=== PATIENT | female | born 1940 | race Caucasian/White ===

== ENCOUNTER → 2019-12-08 | Outpatient (CLI) | payer MEDICARE ==
[~2019-12-08] MED LIST: ASPI81TA26 PO; CENT1TAB PO; HEPARIN 1,000 UNITS/ML 10ML VIAL (FOR RADIOLOGY& DIALYSIS ONLY)(J1644-10) As Ordered ONE; HYDR12CA PO; ISOVUE-300 61% 50ML VIAL (Q9967) As Ordered ONE; LIDOCAINE 1% MDV 20ML VIAL As Ordered ONE; LIDOCAINE W/EPINEPHRINE 1% 20ML VIAL As Ordered ONE; LOSA100T50 PO; MIDAZOLAM INJ 2 MG/2 ML VIAL (J2250) As Ordered ONE; OCUVTAB4 PO; OYST1TAB PO; PRAV20TA2 PO; ceFAZolin 1GM VIAL (J0690 PER 500MG) As Ordered ONE; fentaNYL 100 MCG/2 ML INJECTION (J3010) As Ordered ONE
[2019-12-08 07:22] LABS: HEMATOCRIT 40.5 % (36.0-47.0); HEMOGLOBIN 13.8 g/dl (12.0-15.5); MEAN CORPUSCULAR HEMOGLOBIN 32.6 pg (27.0-33.0); MEAN CORPUSCULAR HGB CONC 34.1 g/dl (32.0-36.5); MEAN CORPUSCULAR VOLUME 95.7 fl (80.0-96.0); PLATELET COUNT, AUTOMATED 263 10^3/uL (150-450); RED BLOOD COUNT 4.23 10^6/uL (4.00-5.40); WHITE BLOOD COUNT 5.9 10^3/uL (4.0-10.0)
[2019-12-08 07:39] LABS: BLOOD UREA NITROGEN 18 MG/DL (7-18); CALCIUM LEVEL 9.3 MG/DL (8.8-10.2); CARBON DIOXIDE LEVEL 32 MEQ/L (21-32); CHLORIDE LEVEL 99 MEQ/L (98-107); CREATININE FOR GFR 0.82 MG/DL (0.55-1.30); GLOMERULAR FILTRATION RATE > 60.0 (>32); GLUCOSE, FASTING 87 MG/DL (70-100); POTASSIUM SERUM 3.8 MEQ/L (3.5-5.1); SODIUM LEVEL 136 MEQ/L (136-145)
--- NOTE | 2019-12-08 11:50 | ROOPDOC ---
[facility] Report Of Operation Report of Operation DATE OF PROCEDURE: 12/08/19 PREPROCEDURE DIAGNOSES: Atherosclerosis of the [place] arteries with rest pain, worsening pain left lower extremity POSTPROCEDURE DIAGNOSES: Same PROCEDURE: 1. US guided access right common femoral artery 2. Aortoiliofemoral arteriogram 3. US guided access left common femoral artery 4. Predilation bilateral common iliac arteries with 6 x 100 mustang balloons 5. Attempt to place bilateral common iliac artery 10 x 57 express balloon expandable stents- aborted 6. Cutdown left common femoral artery and removal dislodged 10 x 57 stent 7. Predilation bilateral common iliac arteries with 10 x 80 Tom Bean balloons 8. Surgical removal left 10 x 80 ruptured mustang balloon and partial arterial closure, then deployment 8Fr Angioseal 9. Stent right common iliac artery with 8 x 39 VBX stent, common into external iliac artery with 10 x 57 Express stent, and postdilation VBX with 10 x 57 balloon. 10. Extension right external iliac stent with 8 x 39 VBX stent 11. Completion arteriograms 12. Mynx closure right common iliac artery SURGEON: Gavin Carvajal MD ANESTHESIA: Local anesthesia 20 mL lidocaine. Moderate intravenous conscious sedation was supervised by Dr Carvajal. The patient was independently monitored by a registered nurse assigned to the department of Radiology using automated blood pressure, EKG, and pulse oximetry. The detailed sedation record is permanently stored in the hospital information system. The following is the brief sedation record: start time: 08:04, stop time: 10:47, versed 4mg IV, fentanyl 200 mcg IV, Ancef 2g IV, heparin 5000 units IV. CONTRAST: 33 mL isovue 300 INDICATION FOR PROCEDURE: Very pleasant 79yo patient with severe vascular disease and worsening rest pain, who has complained of severe left pain for over a month that has woken her from sleep every night. She is tearful talking about the pain. Risks benefits and alternatives were explained for an arteriogram and potential intervention, and she was agreeable to proceed. Informed consent was obtained. INTERPRETATION: 1. Common iliac arteries are heavily calcified and tortuous, with 80-90% stenosis in the right common iliac artery and 90-95% stenosis in the left common iliac artery. There is also diffuse milder stenosis, focally 50-60% in a few areas, through the external iliac arteries bilaterally. The hypogastric arteries are patent. 2. After predilation of the iliac arteries with 6 x 100 balloons, flow intact but stenoses still noted. 3. Unable to successfully stent left common iliac artery due to stent dislodgment. 4. Attempted kissing balloons with 10 x 80 Tom Bean balloons in common iliac arteries, with rupture of the balloon in the left common iliac artery. Following this, there was some improvement in left iliac flow, but still considerable ectasia noted in the plaque and stenosis. 5. Successful stenting of the right common iliac artery and external iliac artery with widely patent inflow through the right iliac system following stent placement. No extravasation or embolization noted. Hypogastric is also still widely patent after stenting. REPORT OF OPERATION: The patient was brought to the angiographic suite in stable condition and placed supine on the fluoroscopic table. Her bilateral groins were prepped and draped in a sterile fashion. A timeout was performed. Sedation was administered without complication. Local anesthesia was administered to the skin and subcutaneous tissue over the left common femoral artery. A microneedle was used to access the artery under ultrasound guidance. A wire was passed through this access and the needle was removed. A 4 British sheath was placed and flushed with saline. A Glidewire and Omni flushed catheter were advanced into the distal aorta. This was difficult due to tortuosity in the common iliac artery on the right, stenosis, irregular plaque, and ectasia. Eventually, we were able to navigate into the distal aorta and and aortoiliofemoral arteriogram was performed. Following this, we spent a bit of time trying to navigate Glidewire and Omni flushed catheter into the left iliac system. Due to the heavy plaque, tortuosity, and stenosis on the left, it was very difficult to navigate the wire down into the left common femoral artery and difficult to track the catheter over the wire. Eventually, we felt this was likely to be unsuccessful and instead we decided to gain access on the left. Local anesthesia was administered to the skin and the cutaneous tissue over the left common femoral artery and a microneedle was used to access the artery and ultrasound guidance. A wire was passed through this access and the needle was removed. A 4 British sheath was placed and flushed with saline. Through this access a Glidewire and Omni flushed catheter were used to cross into the distal aorta. Once the wire was within the aorta, we exchanged the sheath for 7 British sheath and flushed the sheath was saline. 5000 units of heparin was given and allowed to circulate. We advanced 6 x 100 mustang balloons across each common iliac artery with the balloons kissing in the aorta. These were inflated for three-minute inflations to predilate the vessel in order to make it easier to pass balloon expandable stents through the common iliac artery. We then tried to advance 10 x 57 Express stent's into the common iliac artery origins. Unfortunately, we were able to advance on the right, but on the left the stent partially dislodged from the balloon despite predilation prior to passing the stent. We spent a bit of time trying to care fully removed the balloon and stent in 1 unit, but with retraction of the balloon into the sheath, the stent dislodged and only part of the stent remained in the sheath. We then attempted to remove both the sheath and the stent through our access, but the stent became lodged partially in the artery partially in the subcutaneous tissue. Local anesthesia was administered to the skin and subcutaneous tissue. Ancef 2 g IV was given. Skin knife was used to make a transverse incision approximately 3 cm. This was carried down to the subcutaneous tissue with a Metzenbaum scissors. Once we were able to visualize the stent, we carefully grasped the stent with a clamp and removed it from the artery. Wire access was maintained and pressure was held for hemostasis during this process. We then advanced a 7 British sheath over the wire and flushed the sheath with saline. Hemostasis was noted. Sheath was secured at the skin with the suture. Next, we advanced a 10 x 80 Tom Bean balloons in the common iliac arteries to try to predilate again prior to trying to stent again. We were able to inflate the balloons, but then the balloon on the left ruptured due to sharp calcified plaque in the left common iliac artery. Unfortunately, with the large size of this balloon, we could not retract the ruptured balloon back into the sheath. It created a large ball of balloon plastic that could not be brought through the sheath. I did not want to shear the balloon off of the delivery system, so again pressure was held and the sheath was removed and then we retracted the balloon to the origin of the artery. Pressure was held and he carefully dissected around the arteriotomy to remove the balloon safely in one piece. No portion was left behind. We then attempted to place a few strictures at the arteriotomy at the vessel was fragile and we did not have good proximal and distal control except for manual compression. Therefore I elected to try to place an 8 British sheath and see if we could deploy and Angio-Seal to help us with hemostasis. At this point, I felt it was unsafe to continue trying to work on the left common iliac artery and did not feel we had adequate hemostasis to do a runoff of the left lower extremity from the left iliac sheath, which was my initial plan once we were done addressing the inflow with iliac stenting. Therefore we do not know the extent of distal disease in the left lower extremity. The 8 British sheath was placed and an Angio-Seal was deployed with decent hemostasis. Direct pressure was held within the cutdown over the artery for 20 minutes. Following this, there was much improved hemostasis. With hemostasis gained on the left, we continue to hold gentle pressure over the Angio-Seal. Simultaneously, we advanced an 8 x 39 VBX stent into the right common iliac artery and deployed this. We then deployed a 10 x 57 Express stent in the right common iliac artery with a 1 cm overlap of the more proximal stent, and extending into the external iliac artery. After deployment, we postdilated the 8 x 39 stent with the 10 x 57 express balloon to expand to a 10 mm diameter. We then deployed another 8 x 39 VBX stent into the right external iliac artery with a 1 cm overlap of the more proximal Express stent. Following this, completion arteriogram showed widely patent inflow through the right iliac system and there was an excellent pulse. We deployed Mynx closure device on the right with good hemostasis. Pressure was held for 10 minutes and sterile dressings were applied. On the left, the wound was copiously irrigated with saline. Additional local anesthesia was administered. We then closed the small incision in 3 layers with running 4-0 Vicryl suture. We close the skin with a running subcuticular Monocryl suture. Mastisol and Steri-Strips were placed the length of the wound and sterile dressings were applied. The patient was then taken to recovery in stable condition. Despite the various challenges we had to overcome to safely finish this case, the patient tolerated the procedure and the sedation very well. Also, in spite of the fact that we were not able to successfully revascularize her left iliac inflow or evaluate/treat her left lower extremity outflow, the patient did have improved perfusion to her left foot, likely from the angioplasty we did perform in the iliac artery prior to rupture of the balloon. We are very pleased to see that her foot is warm and pink, but still with monophasic signals. Per the patient, the foot feels better, but I still think she will need additional intervention in the future for left lower extremity revascularization. ESTIMATED BLOOD LOSS: Approximately 250 mL. COMPLICATIONS: Dislodgement of left iliac stent required cutdown and manual r emoval of stent, and rupture of left iliac 10 x 80 mustang balloon also required manual removal of balloon from cutdown and arterial repair. Both interventions were successful to manage challenging product failure due to dense, calcified, tortuous left common iliac artery plaque. PLAN: Okay to continue home diet and medications. I did not prescribe the patient Plavix today for her right iliac stents, but she will likely need this soon. I feel she is too high risk for a bleed at home today to start Plavix. The stents are large, and less likely to thrombose, but I think 60 days of Plavix is warranted. I would like her arteriotomy to heal for a few days before starting Plavix. Her left groin incision Steri-Strips should stay intact for 7-10 days. The Tegaderm can be removed tomorrow, or left in place for showers. No strenuous exercise or heavy lifting for 72 hours. Okay for ambulation as tolerated. The patient was extensively counseled about the importance of smoking cessation. The perfusion in her left lower extremity is tenuous, and smoking will definitely affect her perfusion. I think it is important for her to realize that she is at significant risk for limb loss, left lower extremity greater than right, if she continues to smoke. She expressed understanding and said she will try to cut back and eventually quit. Eventually, I think the patient may need a right to left femorofemoral bypass. For now, the angioplasty we did in the left iliac appears to be giving her improved perfusion to the left lower extremity. Best case scenario, the patient would have total healing of both groins prior to a femorofemoral bypass, which would take 30-60 days depending on her healing. If we can hold off until then that would be ideal. If the perfusion she has now through the left iliac is suitable, no further intervention would be needed. Prior to performing the femorofemoral bypass, we would also like to obtain a CTA of the abdomen and pelvis with lower extremity runoff to evaluate distal perfusion. I do not think the patient is a good candidate to bring back for another percutaneous left lower extremity arteriogram after the challenges we've faced today. I would like to avoid left lower extremity endovascular interventions if possible, and avoid access in the left common femoral artery if possible. She does not have an option for and up and over from the right femoral due to remaining heavy plaque in the left common iliac artery. Therefore, I think a CTA as best. I have discussed the patient's case with her daughter and she is agreeable to the plan. We will see her back in clinic to check her groin access sites and see how she is doing in a week. He appreciate the opportunity to participate in the care of this patient. GAVIN CARVAJAL MD Dec 08, 2019 11:50
[2019-12-08 15:45] VITALS: BP 123/59
== END ==
LOC: M IRPRO 06:39
PROVIDERS: ATTEND Surgery Vascular Surgery
DX: I70.222 Atherosclerosis of native arteries of extremities with rest pain, left leg (principal); I10 Essential (primary) hypertension
CPT/HCPCS: 10121; 37221; 75716; 80048; 85027; 99152; 99153; C1725; C1760; C1769; C1874; C1876; C1887; C1894; J0690; J1644; J2250; J3010; Q9967

== ENCOUNTER → 2020-01-11 | Outpatient (CLI) | payer MEDICARE ==
[~2020-01-11] MED LIST changes: -HEPARIN 1,000 UNITS/ML 10ML VIAL (FOR RADIOLOGY& DIALYSIS ONLY)(J1644-10) As Ordered ONE; -ISOVUE-300 61% 50ML VIAL (Q9967) As Ordered ONE; +ISOVUE-370 76% 100ML VIAL As Ordered ONE; -LIDOCAINE 1% MDV 20ML VIAL As Ordered ONE; -LIDOCAINE W/EPINEPHRINE 1% 20ML VIAL As Ordered ONE; -MIDAZOLAM INJ 2 MG/2 ML VIAL (J2250) As Ordered ONE; -ceFAZolin 1GM VIAL (J0690 PER 500MG) As Ordered ONE; -fentaNYL 100 MCG/2 ML INJECTION (J3010) As Ordered ONE
--- NOTE | 2020-01-11 11:22 | REP ---
REASON FOR EXAM: History of carotid artery disease. There are no priors for comparison. There is patchy and linear echogenic material seen throughout the carotid artery bilaterally. Some of this casts an acoustic shadow consistent with calcific deposition. RIGHT LEFT CCA systolic 95.1 cm/s 71.2 cm/s CCA diastolic 10.8 cm/s 14.7 cm/s ICA systolic 121.7 cm/s 105.3 cm/s ICA diastolic 31.8 cm/s 31.9 cm/s ICA/CCA ratio 1.28 1.48 There is antegrade flow seen in the right vertebral artery. There is retrograde flow seen in the left vertebral artery. IMPRESSION: 1. Both calcified and noncalcified plaque formation causes less than 50% stenosis of the internal carotid artery bilaterally according to the NASCET consensus criteria. 2. 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 Electronically Signed by Olman Murray DO 01/11/2020 11:25 A
--- NOTE | 2020-01-11 12:53 | REP ---
CT ANGIOGRAM ABDOMINAL AORTA AND BILATERAL LOWER EXTREMITIES: CT angiogram of the abdominal aorta and bilateral lower extremities performed following the intravenous administration of 100 mL of Isovue 370. Sagittal, coronal and 3D MIP reconstruction images are performed. The visualized lung bases demonstrate no infiltrate. The liver, spleen, adrenals, and pancreas are unremarkable. There are bilateral renal cysts noted. No adenopathy is seen in the abdomen or pelvis. There is a mildly enlarged left inguinal lymph node which measures 1.3 cm in short axis. There is no free air or free fluid in the abdomen pelvis. There are degenerative changes of the spine. No pelvic mass is seen. Lower thoracic aorta demonstrates mild atherosclerotic calcification with mild ectasia measuring 3.2 cm in AP dimension. Distal abdominal aorta below the level of the renal arteries is upper limits of normal in caliber at 3.0 cm. There is diffuse moderate calcified plaque throughout the abdominal aorta. There is focal moderate degree of calcified plaque on the left at the level of the left main renal artery with noncalcified plaque in the right side of the abdominal aorta. There is moderate stenosis of the abdominal aorta focally at this level. There is mild narrowing at the origin of the celiac artery and superior mesenteric artery. There is a small patent inferior mesenteric artery identified. The main right renal artery demonstrates moderate calcific plaque with luminal narrowing in the range of about 30-40%. The left main renal artery demonstrates moderate calcific plaque with luminal narrowing 50-60%. There is a patent stent in the right internal and external iliac arteries. There is moderate narrowing of the right internal iliac artery. The distal aspect of the right external iliac artery demonstrates termination of the stent with moderate calcific plaque causing moderate degree of stenosis. The right common femoral artery demonstrates focal calcified plaque with high grade stenosis. Right superficial femoral artery demonstrates diffuse high-grade stenosis with a thread-like appearance. The stenosis decreases somewhat in the region of the adductor canal. This portion of the superficial femoral artery demonstrates moderate stenosis diffusely. The right popliteal artery demonstrates moderate calcific plaque with segmental high grade stenosis just above the knee joint. There is moderate diffuse stenosis of the distal aspect of the popliteal artery. Very thin trifurcation vessels are identified. The anterior tibial artery is quite small. It appears to terminate just above the ankle. Very thin posterior tibial artery terminates in the proximal third of the calf. The peroneal artery demonstrates moderate diffuse narrowing and does traverse into the right foot. On the left, the common iliac artery demonstrates moderate diffuse plaquing and narrowing. The distal end of the left common iliac artery is slightly ectatic. There is high-grade stenosis of the left internal iliac artery. At the origin of the left external iliac artery, there is moderate diffuse calcific plaque and narrowing. Left common femoral artery demonstrates moderate calcific plaque and moderate to high-grade stenosis. Origin of the left superficial femoral artery demonstrates high-grade stenosis. Caliber increases somewhat in the mid third of the left superficial femoral artery with moderate diffuse narrowing, although there is moderately severe focal stenosis in the mid third of the left SFA. There is moderate plaquing of the left popliteal artery with segmental high grade stenosis just above the level of the knee joint. Moderate narrowing is noted of the left anterior tibial artery which becomes occluded in the proximal to mid third of the calf. The left posterior tibial artery is occluded proximally. The left peroneal artery demonstrates moderate plaque at its origin. There is moderate diffuse narrowing. It does traverse into the foot. IMPRESSION: Mildly enlarged left inguinal lymph node. Moderate calcified and noncalcified plaque of the abdominal aorta at the level of the main left renal artery and just inferior to that, causes moderate narrowing of the aortic lumen at that level. There is about 30-40% narrowing at the origin of the main right renal artery and about 50-60% at the origin of the main left renal artery. Patent stent of right common iliac and external iliac arteries. Moderate stenosis of the distal right external iliac artery. High grade stenosis right common femoral artery. Diffuse high grade stenosis of the right superficial femoral artery. There is also high grade stenosis of the right popliteal artery just above the level of the knee joint. There is single vessel runoff in the right foot. On the left, there is moderate to moderately severe stenosis of the common femoral artery. There is high-grade stenosis of the proximal left superficial femoral artery and of the mid left SFA. There is high grade stenosis of the left popliteal artery. There is single vessel runoff in the left foot. Electronically Signed by Keny Schuster MD 01/11/2020 01:04 P
== END ==
LOC: M RAD 08:55
PROVIDERS: ATTEND Physician Assistant
DX: I70.213 Atherosclerosis of native arteries of extremities with intermittent claudication, bilateral legs (principal); I65.23 Occlusion and stenosis of bilateral carotid arteries
CPT/HCPCS: 75635; 93880; Q9967

== ENCOUNTER → 2020-02-16 | Outpatient (CLI) | payer MEDICARE ==
[~2020-02-16] MED LIST changes: +ALDA25TA2 PO; -ISOVUE-370 76% 100ML VIAL As Ordered ONE; +OXYC1TAB23 PO; +PLAV1TAB2 PO; +VITAD1000T PO
== END ==
LOC: M LABSMTC 09:23
PROVIDERS: ATTEND Anesthesiology
DX: Z01.818 Encounter for other preprocedural examination (principal); Z11.59 Encounter for screening for other viral diseases

== ENCOUNTER 2020-02-19 05:59 | Inpatient (IN) | payer MEDICARE ==
--- NOTE | 2020-02-09 15:36 | HPEPDOC ---
[facility] Medical History & Physical Date of Admission Feb 19, 2020 Date of Service: Feb 19, 2020 History and Physical Vascular surgery . Dr. Carvajal HPI: The patient is a 79-year-old patient with severe profound bilateral lower extremity atherosclerosis of the [place] vessels with left lower extremity rest pain and long-standing history of tobacco abuse, with plan for bilateral femoral endarterectomy and right to left femoral-femoral bypass as per Dr. Carvajal. Please refer to detailed office note from 01/11/[address] Carvajal, a copy is placed with the chart. PMHx: Hypertension Dyslipidemia CAD PAD PSHX: Cataract surgery Angiogram 12/08/19, left lower extremity SOCHX: Current smoker, 1 pack per day for 67 years. FAMHX: Mother HTN, CVA. Father diabetes. ROS: As noted in HPI, otherwise 11pt ROS of systems reviewed and unremarkable. PE: Const: Appears healthy and well developed. No signs of apparent distress present. Head/Face: Normal on inspection. ENMT: Tympanic membranes: intact. External nose WNL. Neck: Supple, Resp: No wheezing. Clear to auscultation bilaterally. CV: Rate is regular. Rhythm is regular. Monophasic DP/PT bilaterally. Abdomen: Soft, NT, ND, no guarding, rigidity, rebound. No organomegaly or palpable mass/aneurysm. Lymph: No palpable or visible regional lymphadenopathy. Musculo:Gait steady Skin:No rashes or lesions Neuro:Alert and oriented x3, moves all extremities equally, no focal neurologic deficits noted. Psych: Pleasant and cooperative A&P: 1. Atherosclerosis of [place] vessels of bilateral lower extremities with plan for bilateral femoral endarterectomy and right to left femoral-femoral bypass as per Dr. Carvajal 02/19/20. Informed consent has been obtained and is placed in the chart. Transfusion consent has been obtained and displaced with the chart. Medical clearance is requested and is placed in the chart. Cardiac clearance is requested and displaced with the chart. Continue aspirin. Continue statin. The patient was requested to hold Plavix 3 days prior to the procedure. Nothing by mouth. CBC, BMP, INR, PTT, type and screen on admission. Ancef 2 g preoperatively. 2. Tobacco use. It has been extensively discussed with the patient that smoking cessation is imperative. Potential health hazards have been extensively discussed with the patient including the advancement of atherosclerotic disease. We have discussed at length that continuing to smoke, is associated with progression of disease, greater risk of complications and poor response to therapy. We have discussed with the patient that any vascular intervention is likely to fail if the patient continues to smoke. Vital Signs Admission vital signs pending. Laboratory Data Labs 24H Admission labs pending. Home Medications Scheduled Aspirin (Aspirin EC) 81 Mg Tablet.dr, 81 MG PO DAILY Hydrochlorothiazide (Hydrochlorothiazide) 12.5 Mg Capsule, 12.5 MG PO DAILY Losartan Potassium (Losartan Potassium) 100 Mg Tablet, 100 MG PO DAILY Multivit-Min/FA/Lycopen/Lutein (Centrum Silver Tablet) 1 Each Tablet, 1 TAB PO DAILY Pravastatin Sodium (Pravastatin Sodium) 20 Mg Tablet, 1 TAB PO DAILY Vit A/Vit C/Vit E/Zinc/Copper (Preservision Areds Tablet) 1 Each Tablet, 1 TAB PO DAILY Miscellaneous Medications Calcium Carbonate (Calcium) 500 Mg Tablet, 500 MG PO Allergies Coded Allergies: ciprofloxacin (Verified Adverse Reaction, Intermediate, gives pt c-diff, 12/08/19) A-FIB/CHADSVASC A-FIB History Current/History of A-Fib/PAF?: No Current PO Anticoag Therapy: No Heydi Lee Feb 09, 2020 15:36
[~2020-02-19] VITALS: Ht 165.1 cm; Wt 63.0 kg
[2020-02-19] VITALS (7 sets, daily range): BP systolic 104–116; BP diastolic 55–65
[2020-02-19] MEDS ORDERED: LIDOCAINE 1% MDV 20ML VIAL SQ PRN (06:00)
[2020-02-19] MEDS ORDERED: LR 1,000 ML IV ONE (06:00)
[2020-02-19] MEDS ORDERED: ceFAZolin SOD 2 GM in IV 1 EA IV ONE (06:00)
[2020-02-19 06:46] LABS: HEMATOCRIT 31.2 % (36.0-47.0); HEMOGLOBIN 10.4 g/dl (12.0-15.5); MEAN CORPUSCULAR HEMOGLOBIN 32.2 pg (27.0-33.0); MEAN CORPUSCULAR HGB CONC 33.3 g/dl (32.0-36.5); MEAN CORPUSCULAR VOLUME 96.6 fl (80.0-96.0); PLATELET COUNT, AUTOMATED 465 10^3/uL (150-450); RED BLOOD COUNT 3.23 10^6/uL (4.00-5.40); WHITE BLOOD COUNT 11.1 10^3/uL (4.0-10.0)
[2020-02-19 06:58] LABS: INR 1.08; PROTHROMBIN TIME 13.7 SECONDS (11.8-14.0)
[2020-02-19 06:59] LABS: PARTIAL THROMBOPLASTIN TIME 35.1 SECONDS (25.0-38.4)
[2020-02-19 07:01] LABS: BLOOD UREA NITROGEN 11 MG/DL (7-18); CALCIUM LEVEL 8.8 MG/DL (8.8-10.2); CARBON DIOXIDE LEVEL 29 MEQ/L (21-32); CHLORIDE LEVEL 103 MEQ/L (98-107); GLOMERULAR FILTRATION RATE > 60.0 (>32); GLUCOSE, FASTING 83 MG/DL (70-100); POTASSIUM SERUM 3.8 MEQ/L (3.5-5.1); SODIUM LEVEL 137 MEQ/L (136-145)
[2020-02-19] MEDS ORDERED: fentaNYL 250 MCG/5 ML INJECTION (J3010) As Ordered ONE (07:07)
[2020-02-19] MEDS ORDERED: propofoL 200 MG/20 ML VIAL As Ordered ONE ×3 (07:07→13:27)
[2020-02-19] MEDS ORDERED: ROCURONIUM BROMIDE 50 MG/5 ML VIAL As Ordered ONE ×4 (07:07→12:45)
[2020-02-19] MEDS ORDERED: LIDOCAINE 2% 100MG/5ML SDV (FOR ANES.) As Ordered ONE (07:07)
[2020-02-19] MEDS ORDERED: ONDANSETRON 4MG/2ML VIAL As Ordered ONE (07:07)
[2020-02-19] MEDS ORDERED: dexameTHASONE 4 MG/ML 1ML VIAL (J1100 PER 1MG) As Ordered ONE (07:07)
[2020-02-19] MEDS ORDERED: propofoL 500 MG/50 ML VIAL As Ordered ONE ×2 (07:08→10:34)
[2020-02-19] MEDS ORDERED: THROMBIN SOLN 20,000 UNITS KIT As Ordered ONE (07:09)
[2020-02-19] MEDS ORDERED: HEPARIN SOD (PORCINE) 5000UNITS/ML VIAL (J1644 PER 1000UNITS) As Ordered ONE ×3 (07:09→14:30)
[2020-02-19] MEDS ORDERED: BUPIVACAINE/EPIN 0.25% 30 ML VIAL As Ordered ONE (07:09)
[2020-02-19] MEDS ORDERED: VANCOMYCIN 1000MG/20ML VIAL As Ordered ONE (08:06)
[2020-02-19] MEDS ORDERED: ACETAMINOPHEN 1000MG 100ML IV BTL (OFIRMEV) (J0131 PER 10MG) As Ordered ONE (08:14)
[2020-02-19] MEDS ORDERED: ePHEDrine SULFATE 25 MG/5 ML(5MG/ML) SYRINGE As Ordered ONE ×2 (08:18→12:37)
[2020-02-19] MEDS ORDERED: PHENYLephrine HCL 500 MCG/5 ML (100MCG/ML) SYRINGE (J2370) As Ordered ONE ×3 (08:37→14:19)
[2020-02-19] MEDS ORDERED: fentaNYL 100 MCG/2 ML INJECTION (J3010) As Ordered ONE ×2 (11:06→13:49)
[2020-02-19] MEDS ORDERED: ceFAZolin 2 GM/D5W 50 ML IV BAG (J0690 PER 500MG) As Ordered ONE (11:14)
[2020-02-19] MEDS ORDERED: SUGAMMADEX SODIUM 500 MG/5 ML VIAL (BRIDION) As Ordered ONE (11:46)
[2020-02-19] MEDS ORDERED: SILVER SULFADIAZINE 1% CR 50 GM JAR As Ordered ONE (13:31)
[2020-02-19] MEDS ORDERED: LIDOCAINE 1% SDV 30ML VIAL As Ordered ONE (14:11)
[2020-02-19] MEDS ORDERED: HEPARIN SOD (PORCINE) 5000UNITS/ML VIAL (J1644 PER 1000UNITS) IV PRN (14:45)
[2020-02-19] MEDS ORDERED: HEPARIN 25,000 UNITS/250 ML D5W BAG (100 UNITS/ML) (J1644 PER 1000UNITS) As Ordered ONE (14:46)
[2020-02-19] MEDS ORDERED: PILL CUTTER 1 EACH XX PRN (15:00)
[2020-02-19] MEDS ORDERED: ONDANSETRON 4MG/2ML VIAL IV PRN ×2 (15:00→15:30)
--- NOTE | 2020-02-19 15:02 | ROOPDOC ---
[facility] Report Of Operation Report of Operation DATE OF PROCEDURE: 02/19/20 PREPROCEDURE DIAGNOSES: Severe end-stage atherosclerosis with rest pain and nonhealing wounds of both feet POSTPROCEDURE DIAGNOSES: Same PROCEDURE: 1. Bilateral common femoral endarterectomies with Xenosure patch angioplasty 2. Right left femoral-femoral bypass with 6 mm range PTFE graft SURGEON: Gavin Carvajal MD ANESTHESIA: General anesthesia and local anesthesia INDICATION FOR PROCEDURE: This is a very pleasant 79-year-old patient with known severe peripheral vascular disease, wounds of the left foot that have gotten progressively worse over the last week, mild excoriations over the dorsum of the right foot as well but with a little better perfusion on the left. She underwent attempts at endovascular revascularization of her iliac vessels which proved extremely challenging, we were only able to revascularize the right iliac vessels. Therefore, our plan today is to do bilateral common femoral endarterectomies for heavy calcified near occlusive plaque in the femoral vessels, with patch angioplasty, and then a [id number] femorofemoral bypass to improve in flow through both lower extremities. Risks benefits and alternatives were explained. I did discuss with the patient extensively preop that she needs to stop smoking immediately, but at this point she is adamant that she does not want to discuss it or hear anything about it despite the risk for limb loss. She was very upset even have the topic broached this morning. Unfortunately, without smoking cessation, I feel it is unlikely we will be able to salvage her limbs long-term. Her peripheral vascular disease is too severe at this point. She has limited options for revascularization due to the severity of disease. He discussed the risk of limb loss, especially with how much her left foot has deteriorated over the last few weeks since I saw her in clinic, and she understands that this is possibility but would like proceed with surgery regardless. I do not think this is unwise, because even if she needs an amputation, this additional blood flow will be helpful for wound healing. Informed consent was obtained. REPORT OF OPERATION: The patient was brought to the operating room in stable condition and placed supine on the OR table. General anesthesia and antibiotics were administered without convocation. Her bilateral groins were prepped and draped in a sterile fashion. A timeout was performed. An oblique incision was made over the left femoral vessels and carried down to the subcutaneous tissue carefully with Bovie cautery. There were large bridging veins throughout the soft tissue, which was heavily scarred. These veins were ligated and divided. Additionally, the scar tissue proved extremely difficult to safely traverse. We eventually were able to dissected down to the femoral sheath. This was opened longitudinally exposing the femoral artery and vein. There was some much scar tissue that it was extremely difficult to separate the vein and the artery. A dditionally, the heavy calcified bulky irregular plaque within the femoral vessels made it difficult as well. The wall of the artery appeared very thin over the plaque, and we took great care not to rupture the plaque through the artery during dissection. We eventually were able to skeletonized the artery proximally distally. A vessel loop was placed on the circumflex vessels. A ve ssel loop was placed her on the profunda. When we tried to pass a right ankle underneath the superficial femoral artery or vessel loop placement, a large branch of the femoral vein was completely adherent to the vessel due to scar tissue, but this was not visible before passing the right ankle. Therefore, unfortunately this caused a defect in the large vein, which was in an extremely difficult area to visualize and isolate, and it was hard to get proximal and distal control. The process of repairing this vein took quite a bit of time, and resulted in the majority of the blood loss for the case. We ordered 2 units of packed red blood cells and 1 unit of FFP. A sponge stick provided hemostasis while we awaited arrival of the blood products. Once the blood products were infusing, we began a task of controlling the bleeding and providing hemostasis. I was able to isolate proximal and distal control, although this was very challenging due to scar tissue, the location of the injury at the distal most aspect of her incision, and the fact that it was posterior to it very calcified stenotic superficial femoral artery. Nevertheless, once we had proximal and distal control, the venotomy was closed with Prolene suture. Hemostasis was achieved. We then continued our case by placing a vessel loop around the superficial femoral artery. Or thousand units of heparin was given by anesthesia and allowed circulate. Large clamp was placed on the distal external iliac artery just proximal to the worsening of the calcified plaque in the common femoral artery. The Vesseloops on the femoral branches were secured. 11 blade was used to make an arteriotomy and a pot scissor was used to carry this proximally and distally on the artery until we were just above the circumflex vessels and about 2 cm onto the superficial femoral artery. It was extremely difficult to elevate the plaque safely from the vessel. It had grown into the wall in several places. Careful elevation proceeded until we had one area of circumferential control and the plaque was divided with heavy scissor. It was extremely difficult to divide the plaque due to the calcified nature. It was almost completely occluded, with very little lumen for blood flow. We then feathered this plaque proximally and distally. About another 20 minutes of care was taken to remove all additional residual plaque, debris, and loose intima. We also inverted the SFA and inverted the profunda to allow good endarterectomy planes. We irrigated with heparinized saline. A xenosure patch was anastomosed to the arteriotomy in a running fashion with 5-0 Prolene suture. Before the final sutures were placed, we flushed the inflow and outflow of the artery, and then irrigated with heparinized saline. The final sutures are placed in fairly good hemostasis was noted. A repair stitch was placed at the proximal aspect of the graft, no additional repair stitches were needed, there was a bit of oozing from the needle holes. Otherwise, good hemostasis was noted. 4 x 4 and gentle compression was used to prevent ongoing bleeding in the left groin while we turned our attention to the right groin. An oblique incision was made just distal to the inguinal ligament over the femoral vessels and carried down to subcutaneous tissue with Bovie cautery. Bridging veins were suture ligated and divided. There was not as much scar tissue on the right side, so the dissection proceeded a little more rapidly. We were able to get proximal and distal control of the femoral vessels. Vesseloops were placed her on the circumflex vessels, the profunda, the SFA, and an SFA branch. Additional heparin was given and allowed to circulate. We secured a clamp on the common femoral artery proximal to the circumflex vessels and then the Vesseloops were secured. Arteriotomy was made and carried across the areas of heaviest plaque onto the proximal superficial femoral artery with a pot scissor. Again, we countered near- occlusive heavily calcified plaque with very little luminal patency. This was carefully elevated as much of the plaque had started to grow through the artery wall. Near the profunda, the plaque was very sharp on the posterior wall and although it did not go through the artery, it was very close to perforating the artery and after removal of the plaque, a 5-0 Prolene suture was used to bring the good intima edges together excluding the area of very thin artery that consisted only of adventitia. Following this, we took great care to remove all other plaque, debris, loose intima until the endarterectomy plain plane was clean. The plaque was sent for pathology. We irrigated with heparinized saline and made sure that we did not have any further embolic debris in the vessel. We then anastomosed a xenosure patch with a running 5-0 Prolene hemostatic suture. Before the final sutures are placed, we flushed the inflow in the outflow of the artery. We then flushed with heparinized saline and placed her final sutures. We restored flow and fairly good hemostasis was noted. There was some minor bleeding from the needle holes, but otherwise no significant bleeding was noted. Following this, we irrigated both groins with heparinized saline. A tunneler was used to make a tunnel from the right groin to the left groin just proximal to the pubic symphysis. A 6 mm ringed PTF graft was tunneled and a tunneler was removed. The graft was beveled each and for anastomosis. We first to the right femoral anastomosis. Additional heparin was given and a clamp was placed on the common femoral artery. The Vesseloops were secured. An arteriotomy was made in the top of the patch and the graft was anastomosed end-to-side fashion with running 5-0 Prolene hemostatic sutures. Before the final sutures are placed, a c lamp was placed on the arterial side of the graft, and we flushed the inflow and outflow arteries irrigated with heparinized saline. We placed the final sutures and good hemostasis was noted. We then placed a clamp on the left common femoral artery and secured her Vesseloops distally. An arteriotomy was made in the patch and the graft was anastomosed in an end-to-side fashion with 5-0 Prolene hemostatic suture. Before the final sutures are placed, we flushed the inflow and outflow artery, and we flushed blood through the graft. We then irrigated all of it with heparinized saline and placed her final sutures. We restored flow first through the profunda, then the superficial femoral artery, and good hemostasis was noted. Following this, Surgicel and gentle pressure was used to eliminate any minor oozing from the needle holes from our multiple anastomoses. Gentle pressure for 2 minutes provided good hemostasis and both groins were copiously irrigated with saline. There was excellent Doppler signals at the proximal SFA and profunda bilaterally. There is bounding pulses in the common femoral arteries bilaterally. Local anesthesia was administered to the skin and subcutaneous tissue of both incisions. Next, the femoral sheath was approximated in the right groin with 2-0 Vicryl suture. The fascia was closed in 3 layers with running 2-0 Vicryl suture. The deep dermal layer was approximated with interrupted 3-0 Vicryl sutures. The skin was closed with skin isabella. The same closure was provided on the left groin, with the femoral sheath closed with a running Vicryl suture, the fascia closed in 3 layers with running Vicryl suture, the deep dermal layer approximated with interrupted 3-0 Vicryl suture, and the skin closed with skin isabella. Both incisions were cleaned and dried. 4 x 4's and Tegaderms were placed the length of the incisions. Her left foot wounds were carefully cleaned while she was under anesthesia and redressed prior to leaving the OR. A hemoglobin was checked at the end of the case and found to be 8.9, and starting hemoglobin was 10.4. Because the patient remained mildly hypotensive with systolic blood pressure in the 90s, one additional unit of blood was ordered by anesthesia and was given in recovery. The patient was taken to the PACU in stable condition. The patient was given a few fluid boluses postop, but her systolic blood pressure remained a bit low, 90-100 mmHg, and thus a low-dose phenylephrine drip was started. The patient will continue on the phenylephrine drip overnight until her blood pressure stabilizes. We prefer her systolic blood pressure to remain above 100 mmHg for perfusion of her limbs. She was also started on heparin drip postop to improve distal circulation. ESTIMATED BLOOD LOSS: Approximately 1300 mL. TRANSFUSION: Total 3 units packed red blood cells, 1 unit FFP SPECIMENS: Plaque from the right and left femoral vessels were sent for pathology COMPLICATIONS: None. PLAN: We will plan to continue heparin drip for now and see how the patient's perfusion does postop. She had near-occlusive plaque in both femoral vessels, and by restoring inflow, we are hopeful that her distal flow will improve, but she still has disease distal to the femoral vessels in both lower extremities. Her left foot was bluish purplish discolored preop, cool, and had diffuse superficial wounds over the dorsal aspect and the ankle. The right foot was a little more peak, but also somewhat cool with 2 second capillary refill preop, and both of her feet are only slightly improved postop. I'm hopeful that with a little more time, and warmth, the circulation will improve now that we've restored inflow. However, I discussed with the patient and her family that if this is not sufficient to improve circulation in her distal foot, she will likely require an amputation on the left. The family and the patient understand this, but we are hopeful this will help. Unfortunately, the patient still has no desire to discuss smoking cessation, and has actually increased her smoking in the last few weeks which has been to the severe detriment of her feet. She already had severe microvascular disease, and increased nicotine intake is likely responsible for the deterioration of her left foot so acutely. It is considerably worsened when I saw her in clinic. We will see how she does with the increase in flow and the heparin drip. We will watch her foot closely. For now, we will hold her Plavix, but restart the aspirin. The rest of her home medications can be restarted. We will put her on high-protein diet to help with healing of the groin incisions. She will be on bed rest overnight, but then can have activity with assist as tolerated tomorrow morning and her Whitmore catheter can come out tomorrow morning as well. We will provide analgesia, as she was in considerable amount of preoperative pain, due to the severity of her left foot. Her condition is tenuous due to the severity of her vascular disease, but we are hopeful that this will be enough to salvage her limbs. GAVIN CARVAJAL MD Feb 19, 2020 15:02
[2020-02-19] MEDS ORDERED: PHENYLEPHRINE 10MG/ML 1ML VIAL (J2370 PER 1) As Ordered ONE (15:06)
[2020-02-19] MEDS ORDERED: oxyCODONE 5MG TAB PO PRN (15:30)
[2020-02-19] MEDS ORDERED: fentaNYL 100 MCG/2 ML INJECTION (J3010) IV PRN (15:30)
[2020-02-19] MEDS ORDERED: LR 1,000 ML IV SCH (15:30)
[2020-02-19] MEDS: HEPARIN DRIP 25,000 UNITS in IV 1 EA IV SCH (15:32)
--- NOTE | 2020-02-19 15:46 | IPNPDOC ---
Text Note Date of Service The patient was seen on 02/19/20. NOTE TIME OF SERVICE 405PM is an 79 yr old w a PMH of severe PAD, dyslipidemia, CAD, and tobacco abuse who was admitted for salvage bilateral fem endarterectomy; perioperatively she lost 1300ml of blood and has received 3 units of PRBCs and 1 unit of FFPs. We will admit her to ICU for closer monitoring. 1. Severe PAD - heparin drip, bed rest for now per / resume ASA/ hold plavix 2. Acute Anemia - f/u serial Hg and iron panel 3. Chronic Hypertension - home meds 4. Dyslipidemia - home meds 5. Chronic CAD - home meds 6. Tobacco abuse - smoking cessation surgery Rest per 's H&P Late entry #Hypotension Per d/w the pt developed hypotension and was started on phenlyephrine We will hold her BP meds and add IVF VS,Fishbone, I+O VS, Fishbone, I+O Laboratory Tests 02/19/20 06:26 Vital Signs Date Time Temp Pulse Resp B/P (MAP) Pulse Ox O2 Delivery O2 Flow Rate FiO2 02/19/20 15:32 76 16 99/48 (65) 97 Nasal Cannula 3 02/19/20 14:40 96.6 IZABEL SALEH MD Feb 19, 2020 15:46
--- NOTE | 2020-02-19 16:44 | HPEPDOC ---
[facility] Medical History & Physical Date of Admission Feb 19, 2020 Date of Service: Feb 19, 2020 Attending Physician: IZABEL SALEH MD History and Physical CHIEF COMPLAINT: S/P Bilateral Femoral Endarterectomy HISTORY OF PRESENT ILLNESS: Patient is an 79 year old female with a past medical history significant for severe peripheral arterial disease who was seen by vascular surgery for a bilateral femoral endarterectomy and right to left femoral-femoral bypass. Patient is currently seen in PACU and is tired secondary to anesthesia. She states that currently she feels well however is thirsty. She denies any pain. She denies chest pain or shortness of breath. The patient had tolerated her procedure well however was noted to have a 1300 ml blood loss. She has received 3 units PRBC and 1 unit FFP. Hospitalist service was consulted for medical management PAST MEDICAL HISTORY: 1. Severe Peripheral Arterial Disease 2. Chronic Hypertension 3. Dyslipidemia 4. Chronic CAD 5. Tobacco Abuse PAST SURGICAL HISTORY: 1. Cataract Surgery 2. Angiogram 12/08/2019 of the left lower extremity 3. Bilateral Femoral endarterectomy and right to left femoral-femoral bypass SOCIAL HISTORY: Patient is a current smoker. She has smoked for greater than 60 years approximately 1ppd. FAMILY HISTORY: Patient has a family history of HTN and CVA in her mother and diabetes in her father ALLERGIES: Please see below. REVIEW OF SYSTEMS: CONSTITUTIONAL: Denies fevers or chills. HEENT: Admits to being thirst. Denies headache CARDIOVASCULAR: Denies chest pain. Denies palpitations RESPIRATORY: Denies shortness of breath, cough, or wheeze GASTROINTESTINAL: Denies abdominal pain. Denies nausea, vomiting, diarrhea, or constipation GENITOURINARY: Denies dysuria, increased frequency, or urgency SKIN: Denies rashes or lesions NEUROLOGICAL: Denies changes in gait or speech PSYCHIATRIC: Denies depression or anxiety ENDOCRINE: Denies heat intolerance or cold intolerance HEMATOLOGIC/LYMPHATIC: Denies easy bruising or bleeding. Denies history of DVT or PE HOME MEDICATIONS: Please see below. PHYSICAL EXAMINATION: VITAL SIGNS: Temperature 97.2, pulse 71, respiratory rate 16, blood pressure 85/52, pulse oximetry 99% on 3L NC GENERAL APPEARANCE: Arousable and oriented. Tired and sleeping through portions of exam. Appears in no acute distress. Comfortable HEENT: Atraumatic, normocephalic. Eyes are nonicteric. Trachea is midline. Nasal cannula in place CARDIOVASCULAR: Normal S1, S2. Regular rate and rhythm. No clicks rubs or murmurs. LUNGS: Clear vesicular breath sounds bilaterally. Good respiratory effort. No wheezes, rhonchi, or rales. Symmetric chest expansion ABDOMEN: Soft, nondistended. nontender. Normoactive bowel sounds EXTREMITIES: No edema. Surgical incision sites present in bilateral inguinal region currently bandaged. Left foot bandaged without any visible drainage. PT a nd DP pulses are not palpable however are present on doppler NEUROLOGICAL: No focal neurological deficits PSYCHIATRIC: Mood and affect appear appropriate LABORATORY DATA: See below. MICROBIOLOGY: Please see below. ASSESSMENT: Patient is an 79 year old female with severe PAD who is s/p femoral endarterectomy and right to left femoral-femoral bypass per Vascular surgery and lost approximately 1300ml of blood during her procedure who is admitted for observation . PLAN: 1. Severe Peripheral Arterial Disease s/p femoral endarterectomy and right to left femoral-femoral bypass today -Per Vascular surgery patient will remain on Heparin Drip. She will resume her Aspirin but Plavix will be HELD -Pain medication as ordered -Zofran PRN for nausea 2. Acute Blood Loss Anemia 2/2 Surgery -Patient lost approximately 1300ml. She is s/p 3 units PRBCs and 1 unit FFP. -Will trend CBC. Transfuse PRN 3. Hypertension -Patient is currently hypotensive likely 2/2 anesthesia. Will hold a ntihypertensives for today. If patients BP increases will resume her home medications 4. Dyslipidemia and CAD -Will continue Pravastatin -Will continue Aspirin. Hold Plavix 5. DVT Prophylaxis -Patient is on heparin Vital Signs Vital Signs Date Time Temp Pulse Resp B/P (MAP) Pulse Ox O2 Delivery O2 Flow Rate FiO2 02/19/20 16:19 85/52 (63) 02/19/20 16:18 69 16 99 Nasal Cannula 3 02/19/20 15:48 97.2 Laboratory Data Labs 24H Laboratory Tests 2 02/19/20 06:26: Nucleated Red Blood Cells % (auto) 0.0, Prothrombin Time 13.7, Prothromb Time International Ratio 1.08, Activated Partial Thromboplast Time 35.1, Anion Gap 5L, Glomerular Filtration Rate > 60.0, Calcium Level 8.8 02/19/20 15:03: Activated Partial Thromboplast Time 147.4*H CBC/BMP Laboratory Tests 02/19/20 06:26 Home Medications Scheduled Aspirin (Aspirin EC) 81 Mg Tablet.dr, 81 MG PO DAILY Cholecalciferol (Vitamin D3) (Vitamin D3) 1,000 Unit Tablet, 1,000 UNITS PO DAILY Clopidogrel Bisulfate (Plavix) 75 Mg Tablet, 75 MG PO DAILY Losartan Potassium (Losartan Potassium) 100 Mg Tablet, 100 MG PO DAILY Multivit-Min/FA/Lycopen/Lutein (Centrum Silver Tablet) 1 Each Tablet, 1 TAB PO DAILY Oxycodone HCl/Acetaminophen (Oxycodone-Acetaminophen 5-325) 1 Each Tablet, 1 TAB PO Q6H Pravastatin Sodium (Pravastatin Sodium) 20 Mg Tablet, 1 TAB PO DAILY Spironolactone (Aldactone) 25 Mg Tablet, 25 MG PO DAILY Vit A/Vit C/Vit E/Zinc/Copper (Preservision Areds Tablet) 1 Each Tablet, 1 TAB PO DAILY Allergies Coded Allergies: ciprofloxacin (Verified Adverse Reaction, Intermediate, gives pt c-diff, 02/12/20) A-FIB/CHADSVASC A-FIB History Current/History of A-Fib/PAF?: No GME ATTESTATION GME ATTESTATION My faculty preceptor for this patient encounter was physically present during the encounter and was fully available. All aspects of the patient interview, examination, medical decision making process, and medical care plan development were reviewed and approved by the faculty preceptor. The faculty preceptor is aware and concurs with the plan as stated in the body of this note and will attest to such by his/her cosignature. ATTENDING NOTE I reviewed the note and agree with the findings as documented. Please see my addendum from 02/19/20 YVROSE ZUNIGA DO Feb 19, 2020 16:44 IZABEL SALEH MD Feb 19, 2020 21:55
[2020-02-19] MEDS ORDERED: LR 500 ML IV SCH ×2 (16:45→17:30)
[2020-02-19] MEDS ORDERED: PHENYLEPHRINE 10MG/ML 1ML VIAL (J2370 PER 1) IV SCH (17:45)
[2020-02-19] MEDS: NS 1,000 ML IV SCH (18:55)
[2020-02-19] MEDS: PHENYLEPHRINE HCL INJ 50 MG in D5W 500 ML IV SCH ×2 (19:00→22:48)
[2020-02-19] MEDS: ceFAZolin SOD 1 GM in D5W MINI-BAG PLUS 50 ML IV SCH (20:09)
[2020-02-19] MEDS: PERCOCET 5MG/325MG TAB PO PRN ×3 (20:40→23:59)
[2020-02-19] MEDS: HYDROmorphone 2 MG TAB PO PRN ×2 (21:01→23:46)
[2020-02-19] MEDS ORDERED: D5W IV SCH (22:00)
[2020-02-19] MEDS ORDERED: PHENYLEPHRINE HCL IV SCH (22:00)
[2020-02-19 22:41] LABS: PERCENT SATURATION 73.8 % (13.2-45.0)
[2020-02-20] VITALS (41 sets, daily range): BP systolic 107–188; BP diastolic 52–83
[2020-02-20] MEDS ORDERED: HYDROMORPHONE HCL 0.5 MG/ 0.5 ML SYRINGE (J1170 PER 1) As Ordered ONE (01:02)
[2020-02-20] MEDS: HYDROmorphone HCL 2 MG/ML 1ML VIAL (J1170) IV PRN ×3 (01:14→10:16)
[2020-02-20] MEDS ORDERED: diazePAM 10MG/2ML SYRINGE (J3360 PER 5MG) IV PRN (01:15)
[2020-02-20] MEDS ORDERED: NALOXONE INJ 0.4MG/1ML VIAL (J2310 PER 1MG) As Ordered ONE (01:21)
[2020-02-20 03:03] LABS: HEMATOCRIT 27.6 % (36.0-47.0); HEMOGLOBIN 9.4 g/dl (12.0-15.5); MEAN CORPUSCULAR HEMOGLOBIN 31.8 pg (27.0-33.0); MEAN CORPUSCULAR HGB CONC 34.1 g/dl (32.0-36.5); MEAN CORPUSCULAR VOLUME 93.2 fl (80.0-96.0); PLATELET COUNT, AUTOMATED 281 10^3/uL (150-450); RED BLOOD COUNT 2.96 10^6/uL (4.00-5.40); WHITE BLOOD COUNT 11.8 10^3/uL (4.0-10.0)
[2020-02-20 03:46] LABS: BLOOD UREA NITROGEN 7 MG/DL (7-18); CALCIUM LEVEL 7.4 MG/DL (8.8-10.2); CARBON DIOXIDE LEVEL 27 MEQ/L (21-32); CHLORIDE LEVEL 105 MEQ/L (98-107); CREATININE FOR GFR 0.48 MG/DL (0.55-1.30); GLOMERULAR FILTRATION RATE > 60.0 (>32); GLUCOSE, FASTING 96 MG/DL (70-100); SODIUM LEVEL 141 MEQ/L (136-145)
[2020-02-20] MEDS: ceFAZolin SOD 1 GM in D5W MINI-BAG PLUS 50 ML IV SCH ×3 (05:04→20:51)
[2020-02-20] MEDS: PERCOCET 5MG/325MG TAB PO PRN (07:19)
[2020-02-20] MEDS: ASPIRIN 81 MG ENTERIC TAB PO SCH (08:43)
[2020-02-20] MEDS: PRAVASTATIN 20 MG TAB PO SCH (08:43)
[2020-02-20] MEDS: HYDROmorphone 2 MG TAB PO PRN (08:44)
[2020-02-20] MEDS ORDERED: PHENYLephrine HCL 500 MCG/5 ML (100MCG/ML) SYRINGE (J2370) ONE (10:22)
[2020-02-20] MEDS ORDERED: NS 1,000 ML IV SCH (11:02)
[2020-02-20] MEDS ORDERED: diphenhydrAMINE 50MG/ML VIAL (J1200) IV PRN (11:15)
[2020-02-20] MEDS ORDERED: NALOXONE INJ 0.4MG/1ML VIAL (J2310 PER 1MG) IV PRN (11:15)
[2020-02-20] MEDS ORDERED: EPIDURAL/PCA KEYS XX PRN (11:15)
[2020-02-20] MEDS: MORPHINE 1MG/ML IN 0.9% NACL 100ML IV BAG IV PRN (12:28)
--- NOTE | 2020-02-20 13:05 | IPNPDOC ---
Text Note Date of Service The patient was seen on 02/20/20. NOTE Subjective: In 06/18 LLE pain, despite Dilaudid Q2H and Percocet Q4H Objective: VITAL SIGNS: HDS GENERAL APPEARANCE: Mild distress, with periodic grimaces from LLE pain HEENT: NCAT, PERRLA, EOMI, MMM CARDIOVASCULAR: RRR, no mrg LUNGS: CTAB, on nasal canula, on 2L ABDOMEN: Soft, nondistended. nontender. Normoactive bowel sounds EXTREMITIES: No edema. Surgical incision sites present in bilateral inguinal region, no palpable hematoma or bleeding noted. Left foot bandaged without any visible drainage. L foot cold, dark toes NEUROLOGICAL: No focal neurological deficits ntoed PSYCHIATRIC: AOx3 LABORATORY DATA: WBC 11.8 Hgb 9.4 platelets 281 Cr 0.48 Ca 7.4 MICROBIOLOGY: Please see below. ASSESSMENT: 79 year old W with severe PAD who is s/p femoral endarterectomy and right to left femoral-femoral bypass per Vascular surgery on 02/18 c/b acute blood loss anemia 1300ml of blood during her procedure, admitted for observation s/p 3 units of PRBCs and 1 unit of FFP, and course further c/b hypotension and was briefly on phenylephrine. . PLAN: 1. Severe Peripheral Arterial Disease s/p femoral endarterectomy and right to left femoral-femoral bypass today -Per Vascular surgery patient, on Heparin Drip, Aspirin holding Plavix -Pain medication now switched to morphine REFRIGERATOR TESTER pump -Zofran PRN for nausea 2. Acute Blood Loss Anemia 2/2 Surgery -Patient lost approximately 1300ml. She is s/p 3 units PRBCs and 1 unit FFP. -Will trend CBC. Transfuse PRN to Hgb >8 3. Hypotension: resolved -continue holding antihypertensives, until clinically indicated. 4. Dyslipidemia and CAD -continue Pravastatin -continue Aspirin and holding Plavix 5. DVT Prophylaxis -Patient is on heparin Dispo: ICU VS,Song, I+O VS, Anahie, I+O Laboratory Tests 02/19/20 17:49 02/19/20 23:35 02/20/20 02:58 Vital Signs Date Time Temp Pulse Resp B/P (MAP) Pulse Ox O2 Delivery O2 Flow Rate FiO2 02/20/20 09:00 71 18 158/65 (94) 84 02/20/20 08:00 98.4 6/13/20 08:00 2.0 02/20/20 06:00 Nasal Cannula 02/20/20 04:00 99 I&O- Last 24 Hours up to 6 AM 02/20/20 06:00 Intake Total 6710 ml Output Total 5250 ml Balance 1460 ml SHIELA BEARDEN MD Feb 20, 2020 09:38
--- NOTE | 2020-02-20 13:49 | IPNPDOC ---
Date Seen The patient was seen on 02/20/20. Progress Note Patient seen and examined this morning, postoperative day #1 status post a very challenging left femoral endarterectomy and patch angioplasty, right femoral endarterectomy and patch angioplasty, and right to left femorofemoral bypass. She had near occlusive plaque, calcified and dense, in both common femoral arteries extending into the proximal profunda and superficial femoral artery bilaterally. This was a very challenging case because of the nature of her plaque in the friability of her arteries, but also due to scar tissue in the left groin that may dissection extremely challenging. However, we were able to successfully complete the operation and improve her inflow to both lower extre mities significantly. However, the patient does have severe bilateral lower extremity SFA, popliteal, and tibial disease. She has single vessel runoff to both lower extremities. Preoperatively, her right foot was a bit cool, but color was okay with 1-2 second capillary refill, and mild excoriations over the dorsum of the foot. Preoperatively, her left foot was bluish purple in color, with foul-smelling excoriations and skin breakdown over the dorsum of the foot entirely extending onto the lateral and medial foot and the ankle. Postoperatively, the condition of her feet is relatively unchanged. She still does not have great Doppler signals distally on my exam today, although the nurse says the signals were better earlier and he felt her feet were warm or earlier too. She is still on a heparin drip, and we will try to support her and keep her feet warm. I am still worried that the patient will require left lower extremity amputation due to nonhealing wounds of the foot. Although we dramatically improved her inflow, her outflow is still very problematic. I knew that this would be a very challenging procedure, and I think in light of how challenging it did prove to be, if we had tried to add on a heroic attempt for distal bypasses bilaterally, we not only would've likely been in the operating room for an additional 4-5 hours, but I am not sure her runoff is good enough to support patency long-term in a bypass. My hope preoperatively was that by restoring good inflow through the right iliac system was stenting which was done a few months ago, restoring flow through the right femoral system with endarterectomy, restoring flow through the left femoral system with endarterectomy and then providing more inflow to the left lower extremity with a femorofemoral bypass, that she may have enough flow into both profunda systems and trickle flow through her SFA popliteal systems to provide adequate wound healing for her foot. However, because her foot acutely deteriorated over the last couple weeks, this may no longer be possible. I discussed this with the patient and her family. I feel like right now we should give the patient a little more time to see if her feet will improve with the added circulation and the heparin. She has bounding pulses in both femoral systems, and I can Doppler triphasic flow through the profundus bilaterally and monophasic flow through the SFA on the left and biphasic flow through the SFA on the right. The popliteal arteries have monophasic flow, and I'm not able to Doppler good flow at the DP and PT in either lower extremity. There is 2-3 second capillary refill on the left, with a dusky discoloration of the foot, and 1-2 second capillary refill on the right, with no discoloration of the foot. Her incisions in the groin are clean dry and intact with scant drainage on the dressings. The incisions were cleaned and dried and sterile dressings were applied. The foot was cleaned thoroughly, cultures were taken, and dressings were reapplied. We will follow the cultures and adjust her antibiotics accordingly, but for now we will continue the Ancef. The patient has considerable pain in the left foot at baseline, but in the last 24 hours it has been back and forth between the left foot than the right foot than the left foot depending on the hour. Analgesia seems to be adequate, as she is comfortable and pleasant during our conversation and tolerated her dressing changes well. This is a challenging case of end-stage vascular disease in a patient who has heavy tobacco dependence and has absolutely no interest in discussing smoking cessation. Unfortunately, I think this may be a case of loss of limb due to tobacco dependence despite our best efforts to encourage her and help her to quit smoking. She is 100% resistant to the idea despite all of our pleading. For now let's continue to support her medically and we will follow her exam clinically and further recommendations to follow as appropriate. We appreciate the hospitalist excellent care of this patient. VS, I&O, 24H, Fishbone Vital Signs/I&O Vital Signs Date Time Temp Pulse Resp B/P (MAP) Pulse Ox O2 Delivery O2 Flow Rate FiO2 02/20/20 10:26 20 Nasal Cannula 2.0 02/20/20 09:00 71 158/65 (94) 84 02/20/20 08:00 98.4 02/20/20 04:00 99 I&O- Last 24 Hours up to 6 AM 02/20/20 06:00 Intake Total 6710 ml Output Total 5250 ml Balance 1460 ml Laboratory Data 24H LABS Laboratory Tests 2 02/19/20 14:05: POC pH (Misc Panel) 7.346L, POC Base Excess (Misc Panel) 0.0, POC Saturated Percent O2 (Misc) 94L, POC pO2 (Misc Panel) 77.0L, POC pCO2 (Misc Panel) 46.2H, POC HCO3 (Misc Panel) 25.2, POC Glucose (Misc Panel) 144H, POC Sodium (Misc Panel) 133L, POC Potassium (Misc Panel) 4.1, POC Total CO2 (Misc Panel) 27.0, POC Ionized Calcium (Misc Panel) 4.5, POC Hemoglobin (Calculated)(Misc) 8.5L, POC Hematocrit (Misc Panel) 25.0L 02/19/20 15:03: Activated Partial Thromboplast Time 147.4*H 02/19/20 20:28: Activated Partial Thromboplast Time 102.3H, Iron Level 121, Total Iron Binding Capacity 164L, Transferrin % Saturation 73.8H, Ferritin 114 02/20/20 02:58: Activated Partial Thromboplast Time 85.6H, Nucleated Red Blood Cells % (auto) 0.0, Anion Gap 9, Glomerular Filtration Rate > 60.0, Calcium Level 7.4#L CBC/BMP Laboratory Tests 02/19/20 17:49 02/19/20 23:35 02/20/20 02:58 GAVIN TOTH MD Feb 20, 2020 13:49
[2020-02-20] MEDS: NS 1,000 ML IV SCH (14:32)
[2020-02-20] MEDS: HEPARIN DRIP 25,000 UNITS in IV 1 EA IV SCH (16:34)
[2020-02-20] MEDS: ACETAMINOPHEN TAB 650MG DOSE (2X325MG) PO PRN (23:20)
[2020-02-21] VITALS (22 sets, daily range): BP systolic 128–176; BP diastolic 60–100
[2020-02-21] MEDS: NS 1,000 ML IV SCH ×2 (03:37→19:15)
[2020-02-21] MEDS: ceFAZolin SOD 1 GM in D5W MINI-BAG PLUS 50 ML IV SCH ×2 (03:37→11:41)
[2020-02-21 04:34] LABS: HEMATOCRIT 25.2 % (36.0-47.0); HEMOGLOBIN 8.3 g/dl (12.0-15.5); MEAN CORPUSCULAR HEMOGLOBIN 31.7 pg (27.0-33.0); MEAN CORPUSCULAR HGB CONC 32.9 g/dl (32.0-36.5); MEAN CORPUSCULAR VOLUME 96.2 fl (80.0-96.0); PLATELET COUNT, AUTOMATED 270 10^3/uL (150-450); RED BLOOD COUNT 2.62 10^6/uL (4.00-5.40); WHITE BLOOD COUNT 13.2 10^3/uL (4.0-10.0)
[2020-02-21 04:53] LABS: BLOOD UREA NITROGEN 6 MG/DL (7-18); CALCIUM LEVEL 7.7 MG/DL (8.8-10.2); CARBON DIOXIDE LEVEL 27 MEQ/L (21-32); CHLORIDE LEVEL 103 MEQ/L (98-107); CREATININE FOR GFR 0.46 MG/DL (0.55-1.30); GLOMERULAR FILTRATION RATE > 60.0 (>32); GLUCOSE, FASTING 81 MG/DL (70-100); POTASSIUM SERUM 3.8 MEQ/L (3.5-5.1); SODIUM LEVEL 138 MEQ/L (136-145)
[2020-02-21] MEDS: ASPIRIN 81 MG ENTERIC TAB PO SCH (08:00)
[2020-02-21] MEDS: PRAVASTATIN 20 MG TAB PO SCH (08:00)
--- NOTE | 2020-02-21 11:35 | IPNPDOC ---
Text Note Date of Service The patient was seen on 02/21/20. NOTE Subjective: -had a fever overnight while on ancef to 100.9 -Pain is now much better controlled since starting the morphine PAPER TWISTER Objective: VITAL SIGNS: HDS GENERAL APPEARANCE: Mild distress, with periodic grimaces from LLE pain HEENT: NCAT, PERRLA, EOMI, MMM CARDIOVASCULAR: RRR, no mrg LUNGS: CTAB, on nasal canula, on 2L ABDOMEN: Soft, nondistended. nontender. Normoactive bowel sounds EXTREMITIES: No edema. Surgical incision sites present in bilateral inguinal region without drainage or hematoma. Left foot bandaged without any visible drainage. L foot cool, dark toes, pain improved, can touch it now without her have severe pain NEUROLOGICAL: No focal neurological deficits ntoed PSYCHIATRIC: AOx3 LABORATORY DATA: WBC 13.2 Hgb 8.3 Cr 0.46 MICROBIOLOGY: Please see below. ASSESSMENT: 79 year old W with severe PAD who is s/p femoral endarterectomy and right to left femoral-femoral bypass per Vascular surgery on 02/18 c/b acute blood loss anemia 1300ml of blood during her procedure, admitted for observation s/p 3 units of PRBCs and 1 unit of FFP, and course further c/b hypotension and was briefly on phenylephrine, now stable on heparin gtt with vascular onboard with course now c/b fever. . PLAN: 1. Severe Peripheral Arterial Disease s/p femoral endarterectomy and right to left femoral-femoral bypass today -Per Vascular surgery patient, on Heparin Drip, Aspirin holding Plavix -Pain medication now switched to morphine PAPER TWISTER pump -On ancef periop, however WBC risen to 13.2 and had fever, will send UA/UCx, BCx and do a CXR before decision on abx change -Zofran PRN for nausea 2. Acute Blood Loss Anemia 2/2 Surgery -Patient lost approximately 1300ml. She is s/p 3 units PRBCs and 1 unit FFP. -Will trend CBC. Transfuse PRN to Hgb >8 3. Hypotension: resolved -continue holding antihypertensives, until clinically indicated. 4. Fever: Nonfocal exam however with new hypoxemia this admission, recent winters and recent procedure, on periop ancef -On ancef periop, however WBC risen to 13.2 and had fever, will send UA/UCx, BCx and do a CXR before decision on abx change. -if she has a fever today will escalate to zosyn 5. Dyslipidemia and CAD -continue Pravastatin -continue Aspirin and holding Plavix 6. DVT Prophylaxis -Patient is on heparin Dispo: ICU VS,Fishbone, I+O VS, Fishbone, I+O Laboratory Tests 02/21/20 04:23 Vital Signs Date Time Temp Pulse Resp B/P (MAP) Pulse Ox O2 Delivery O2 Flow Rate FiO2 02/21/20 08:00 98.7 85 11 166/69 (101) 95 Nasal Cannula 1.0 02/20/20 04:00 99 I&O- Last 24 Hours up to 6 AM 02/21/20 05:59 Intake Total 2432 ml Output Total 2700 ml Balance -268 ml SHIELA BEARDEN MD Feb 21, 2020 10:09
[2020-02-21] MEDS: MORPHINE 1MG/ML IN 0.9% NACL 100ML IV BAG IV PRN (16:19)
[2020-02-21] MEDS: HEPARIN DRIP 25,000 UNITS in IV 1 EA IV SCH (16:24)
--- NOTE | 2020-02-21 16:46 | REP ---
Single view chest: 02/21/2020. Indication: Fever. Comparison: None. Findings: There is no evidence of focal pulmonary consolidation/infiltrate. No significant pleural effusion is present. There is no pneumothorax. The cardiac silhouette is normal in size. Impression: Clear lungs. No pneumonia. Electronically Signed by Jus Gerber DO 02/21/2020 04:37 P
--- NOTE | 2020-02-21 18:41 | IPNPDOC ---
Date Seen The patient was seen on 02/21/20. Progress Note Patient seen and examined this morning, postoperative day #2 status post a very challenging left femoral endarterectomy and patch angioplasty, right femoral endarterectomy and patch angioplasty, and right to left femorofemoral bypass. She had near occlusive plaque, calcified and dense, in both common femoral arteries extending into the proximal profunda and superficial femoral artery bilaterally. This was a very challenging case because of the nature of her plaque and the friability of her arteries, but also due to scar tissue in the left groin that made dissection extremely challenging. However, we were able to successfully complete the operation and improve her inflow to both lower ext remities significantly. The patient does have severe bilateral lower extremity SFA, popliteal, and tibial disease. She has single vessel runoff to both lower extremities. Preoperatively, her right foot was a bit cool, but color was okay with 1-2 second capillary refill, and mild excoriations over the dorsum of the foot. Preoperatively, her left foot was bluish purple in color, with foul- smelling excoriations and skin breakdown over the dorsum of the foot entirely extending onto the lateral and medial foot and the ankle. Postoperatively, the condition of her feet is relatively unchanged. She still does not have great Doppler signals distally on my exam again today. She is still on a heparin drip, and we will try to support her and keep her feet warm. I discussed with the patient that she will require left lower extremity amputation due to nonhealing wounds of the foot. Although we dramatically improved her inflow, her outflow is still very problematic. I knew that this would be a very challenging procedure, and I think in light of how challenging it did prove to be, if we had tried to add on a heroic attempt for distal bypasses bilaterally, we not only would've likely been in the operating room for an additional 4-5 hours, but I am not sure her runoff is good enough to support patency in a bypass. My hope preoperatively was that by restoring good inflow through the right iliac system was stenting which was done a few months ago, restoring flow through the right femoral system with endarterectomy, restoring flow through the left femoral system with endarterectomy and then providing more inflow to the left lower extremity with a femorofemoral bypass, that she may have enough flow into both profunda systems and trickle flow through her SFA popliteal systems to provide adequate wound healing for her foot. However, because her foot acutely deteriorated over the week or two, this may no longer be possible. I discussed this with the patient and her family preoperatively and postoperatively. I feel like right now we should give the patient a little more time to see if her feet will improve with the added circulation and the heparin. She has bounding pulses in both femoral systems, and I can Doppler triphasic flow through the profundus bilaterally and monophasic flow through the SFA on the left and biphasic flow through the SFA on the right. The popliteal arteries have monophasic flow, and I'm not able to Doppler good flow at the DP and PT in either lower extremity. There is 2-3 second capillary refill on the left, with a dusky discoloration of the foot, and 1-2 second capillary refill on the right, with no discoloration of the foot. Her incisions in the groin are clean dry and intact with scant drainage on the dressings. The incisions were cleaned and dri ed and sterile dressings were applied. The left foot was cleaned thoroughly and betadine dressings were reapplied, the right foot was cleaned and foam dressing placed. We will follow the cultures, but with gram positive and negative bacteria, will start broad spectrum antibiotics. I have discussed with the hospitalist team and they will select antibiotics. The patient has considerable pain in the left foot at baseline, but in the last 24 hours it has been back and forth between the left foot than the right foot than the left foot depending on the hour. Analgesia seems to be adequate, as she is comfortable and pleasant during our conversation and tolerated her dressing changes well. This is a challenging case of end-stage vascular disease in a patient who has heavy tobacco dependence and has absolutely no interest in discussing smoking cessation. Unfortunately, I think this may be a case of loss of limb due to tobacco dependence despite our best efforts to encourage her and help her to quit smoking. She is 100% resistant to the idea despite all of our pleading. For now we will continue to support her medically, transfuse her a unit of blood for drifting hemoglobin despite no signs of bleeding postop, and we will follow her exam clinically and further recommendations to follow as appropriate. We appreciate the hospitalist excellent care of this patient. VS, I&O, 24H, Fishbone Vital Signs/I&O Vital Signs Date Time Temp Pulse Resp B/P (MAP) Pulse Ox O2 Delivery O2 Flow Rate FiO2 02/21/20 16:00 99.1 02/21/20 16:00 86 15 150/69 (96) 97 Nasal Cannula 1.0 02/20/20 04:00 99 I&O- Last 24 Hours up to 6 AM 02/21/20 06:00 Intake Total 3042 ml Output Total 2350 ml Balance 692 ml Laboratory Data 24H LABS Laboratory Tests 2 02/21/20 04:23: Nucleated Red Blood Cells % (auto) 0.0, Activated Partial Thromboplast Time 128.3*H, Anion Gap 8, Glomerular Filtration Rate > 60.0, Calcium Level 7.7L 02/21/20 12:33: Activated Partial Thromboplast Time 73.6H 02/21/20 18:22: CBC/BMP Laboratory Tests 02/21/20 04:23 Microbiology Microbiology 02/21/20 Blood Culture, Received Pending 02/21/20 Blood Culture, Received Pending 02/20/20 Gram Stain - Final, Resulted 02/20/20 Wound Culture, Resulted Pending GAVIN TOTH MD Feb 21, 2020 18:41
[2020-02-21] MEDS: PIPERACILLIN/TAZOBACTAM SOD 3.375 GM in D5W MINI-BAG PLUS 50 ML IV SCH (20:00)
[2020-02-21] MEDS ORDERED: VANCOMYCIN HCL 1,000 MG, VIAL MATE ADAPTER 1 EACH in D5W 250 ML IV ONE (21:00)
[2020-02-22] VITALS (12 sets, daily range): BP systolic 128–178; BP diastolic 58–78
[2020-02-22] MEDS: PIPERACILLIN/TAZOBACTAM SOD 3.375 GM in D5W MINI-BAG PLUS 50 ML IV SCH ×4 (02:23→20:59)
[2020-02-22] MEDS ORDERED: VANCOMYCIN HCL 1,000 MG, VIAL MATE ADAPTER 1 EACH in D5W 250 ML IV SCH (06:00)
[2020-02-22 06:22] LABS: HEMATOCRIT 23.8 % (36.0-47.0); HEMOGLOBIN 7.9 g/dl (12.0-15.5); MEAN CORPUSCULAR HEMOGLOBIN 32.1 pg (27.0-33.0); MEAN CORPUSCULAR HGB CONC 33.2 g/dl (32.0-36.5); MEAN CORPUSCULAR VOLUME 96.7 fl (80.0-96.0); PLATELET COUNT, AUTOMATED 272 10^3/uL (150-450); RED BLOOD COUNT 2.46 10^6/uL (4.00-5.40); WHITE BLOOD COUNT 14.4 10^3/uL (4.0-10.0)
[2020-02-22 06:44] LABS: BLOOD UREA NITROGEN 5 MG/DL (7-18); CALCIUM LEVEL 7.4 MG/DL (8.8-10.2); CARBON DIOXIDE LEVEL 28 MEQ/L (21-32); CHLORIDE LEVEL 99 MEQ/L (98-107); CREATININE FOR GFR 0.36 MG/DL (0.55-1.30); GLOMERULAR FILTRATION RATE > 60.0 (>32); GLUCOSE, FASTING 140 MG/DL (70-100); POTASSIUM SERUM 3.4 MEQ/L (3.5-5.1); SODIUM LEVEL 135 MEQ/L (136-145)
[2020-02-22] MEDS ORDERED: POTASSIUM CHLORIDE 10 MEQ SR TABLET PO ONE (08:00)
[2020-02-22] MEDS: ASPIRIN 81 MG ENTERIC TAB PO SCH (08:43)
[2020-02-22] MEDS: PRAVASTATIN 20 MG TAB PO SCH (08:43)
--- NOTE | 2020-02-22 18:06 | IPNPDOC ---
Date Seen The patient was seen on 02/22/20. Progress Note Patient seen and examined this morning, postoperative day #3 status post a very challenging left femoral endarterectomy and patch angioplasty, right femoral endarterectomy and patch angioplasty, and right to left femorofemoral bypass. She had near occlusive plaque, calcified and dense, in both common femoral arteries extending into the proximal profunda and superficial femoral artery bilaterally. This was a very challenging case because of the nature of her plaque and the friability of her arteries, but also due to scar tissue in the left groin that made dissection extremely challenging. However, we were able to successfully complete the operation and improve her inflow to both lower ext remities significantly. The patient does have severe bilateral lower extremity SFA, popliteal, and tibial disease. She has single vessel runoff to both lower extremities. Preoperatively, her right foot was a bit cool, but color was okay with 1-2 second capillary refill, and mild excoriations over the dorsum of the foot. Preoperatively, her left foot was bluish purple in color, with foul- smelling excoriations and skin breakdown over the dorsum of the foot entirely extending onto the lateral and medial foot and the ankle. Postoperatively, the condition of her feet is relatively unchanged. She still does not have great Doppler signals distally on my exam again today. She is still on a heparin drip, and we will try to support her and keep her feet warm. I discussed with the patient that she will require left lower extremity amputation due to nonhealing wounds of the foot. Risks benefits and alternatives were explained and she is agreeable to proceed. Informed consent was obtained. I spoke with the patient's family as well, and they are aware. Although we dramatically improved her inflow, her outflow is still very problematic. I knew that this would be a very challenging procedure, and I think in light of how challenging it did prove to be, if we had tried to add on a heroic attempt for distal bypasses bilaterally, we not only would've likely been in the operating room for an additional 4-5 hours, but I am not sure her runoff is good enough to support patency in a bypass. My hope preoperatively was that by restoring good inflow through the right iliac system was stenting which was done a few months ago, restoring flow through the right femoral system with endarterectomy, restoring flow through the left femoral system with en darterectomy and then providing more inflow to the left lower extremity with a femorofemoral bypass, that she may have enough flow into both profunda systems and trickle flow through her SFA popliteal systems to provide adequate wound healing for her foot. However, because her foot acutely deteriorated over the week or two, this may no longer be possible. I discussed this with the patient and her family preoperatively and postoperatively. I feel like right now we should give the patient a little more time to see if her feet will improve with the added circulation and the heparin. She has bounding pulses in both femoral systems, and I can Doppler triphasic flow through the profundus bilaterally and monophasic flow through the SFA on the left and biphasic flow through the SFA on the right. The popliteal arteries have monophasic flow, and I'm not able to Doppler good flow at the DP and PT in either lower extremity. There is 2-3 second capillary refill on the left, with a dusky discoloration of the foot, and 1-2 second capillary refill on the right, with no discoloration of the foot. Her incisions in the groin are clean dry and intact with scant drainage on the dressings. The incisions were cleaned and dried and sterile dressings were applied. The left foot was cleaned thoroughly a nd betadine dressings were reapplied, the right foot was cleaned and foam dressing placed. We will follow the cultures, and has started broad spectrum antibiotics. We appreciate the hospitalist team managing the antibiotics. White blood cell count is 14, and should improve after removal of the left foot. We transfuse her two units of packed cells today for drifting hemoglobin of 7.9, 8 yesterday. No signs of bleeding are present. Both groins are soft and hemostatic. No drainage on the dressings and no hematoma palpable in the groins. No other sources of bleeding are noted today. Analgesia seems to be adequate, as she is comfortable and pleasant during our conversation and tolerated her dressing changes well. This is a challenging case of end-stage vascular disease in a patient who has he cesilia tobacco dependence and has absolutely no interest in discussing smoking cessation. Unfortunately, I think this may be a case of loss of limb due to tobacco dependence despite our best efforts to encourage her and help her to quit smoking. She is 100% resistant to the idea despite all of our pleading. For now we will continue to support her medically.W Transfuse her a unit of blood for drifting hemoglobin despite no signs of bleeding postop, and we will follow her exam clinically and further recommendations to follow as appropriate. We appreciate the hospitalist excellent care of this patient. VS, I&O, 24H, Fishbone Vital Signs/I&O Vital Signs Date Time Temp Pulse Resp B/P (MAP) Pulse Ox O2 Delivery O2 Flow Rate FiO2 02/22/20 17:25 99.5 79 18 148/58 (88) 91 Room Air 02/22/20 15:32 1.0 02/20/20 04:00 99 I&O- Last 24 Hours up to 6 AM 02/22/20 06:00 Intake Total 1381 ml Output Total 1225 ml Balance 156 ml Laboratory Data 24H LABS Laboratory Tests 2 02/21/20 18:22: Urine Color YELLOW, Urine Appearance CLOUDYH, Urine pH 5.0, Urine Specific [place] 1.010, Urine Protein NEGATIVE, Urine Glucose (UA) NEGATIVE, Urine Ketones 1+H, Urine Blood 3+H, Urine Nitrite NEGATIVE, Urine Bilirubin NEGATIVE, Urine Urobilinogen 0.2, Urine Leukocyte Esterase 2+H, Urine WBC (Auto) 13H, Urine RBC (Auto) 83H, Urine Hyaline Casts (Auto) 0, Urine Bacteria (Auto) NEGATIVE, Urine Squamous Epithelial Cells 9, Urine Sperm (Auto) 02/21/20 18:31: Activated Partial Thromboplast Time 79.8H 02/22/20 06:03: Activated Partial Thromboplast Time 76.2H, Nucleated Red Blood Cells % (auto) 0.0, Anion Gap 8, Glomerular Filtration Rate > 60.0, Calcium Level 7.4L CBC/BMP Laboratory Tests 02/22/20 06:03 Microbiology Microbiology 02/21/20 Urine Culture, Received Pending 02/21/20 Blood Culture - Preliminary, Resulted No growth after 24 hours . All specim... 02/21/20 Blood Culture - Preliminary, Resulted No growth after 24 hours . All specim... 02/20/20 Gram Stain - Final, Complete 02/20/20 Wound Culture - Final, Complete Klebsiella Oxytoca Corynebacterium Species GAVIN TOTH MD Feb 22, 2020 18:06
--- NOTE | 2020-02-22 18:13 | IPNPDOC ---
Text Note Date of Service The patient was seen on 02/22/20. NOTE Subjective: -HDS, continues to have low grade fevers, pain well controlled, no complaints this morning Objective: VITAL SIGNS: HDS GENERAL APPEARANCE: Mild distress, with periodic grimaces from LLE pain HEENT: NCAT, PERRLA, EOMI, MMM CARDIOVASCULAR: RRR, no mrg LUNGS: CTAB, on nasal canula, on 2L ABDOMEN: Soft, nondistended. nontender. Normoactive bowel sounds EXTREMITIES: No edema. Left foot bandaged without any visible drainage. L foot cool, dark toes, pain improved and well controlled. RLE with mild edema, warm, also has mild TTP. NEUROLOGICAL: No focal neurological deficits ntoed PSYCHIATRIC: AOx3 LABORATORY DATA: WBC 14.4 Hgb 7.7 Cr 0.36 MICROBIOLOGY: Please see below. pending UCx, BCx, with wound culture growing amp resistant Klebs and corynebacterium. ASSESSMENT: 79 year old W with severe PAD who is s/p femoral endarterectomy and right to left femoral-femoral bypass per Vascular surgery on 02/18 c/b acute blood loss anemia 1300ml of blood during her procedure, admitted for observation s/p 3 units of PRBCs and 1 unit of FFP, and course further c/b hypotension and was briefly on phenylephrine, now stable on heparin gtt with vascular onboard with course now c/b fever on vanc/pip tazo, and slowly worsening anemia with Hgb now 7.7, with vascular discussing the impending need for amputation. . PLAN: 1. Severe Peripheral Arterial Disease s/p femoral endarterectomy and right to left femoral-femoral bypass today -Per Vascular surgery patient, on Heparin Drip, Aspirin holding Plavix -Pain medication now switched to morphine [employer] pump -On vanc/piptazo, with persistent fever, with thus far ++UA, pending UCx, BCx and an unrevealing CXR -Zofran PRN for nausea 2. Acute Blood Loss Anemia /2 Surgery -Patient lost approximately 1300ml. She is s/p 3 units PRBCs and 1 unit FFP. -Now downtrending Hgb, without evidence of ev bleeding, will give 2u pRBCs today. Transfuse PRN to Hgb >8 3. Hypotension: resolved -continue holding antihypertensives, until clinically indicated. 4. Fever: Nonfocal exam however with new hypoxemia this admission, recent winters and recent procedure, on periop ancef -On vanc/piptazo, with persistent fever, with thus far ++UA, pending UCx, BCx and an unrevealing CXR -f/u MRSA PCR 5. Dyslipidemia and CAD -continue Pravastatin -continue Aspirin and holding Plavix 6. DVT Prophylaxis -Patient is on heparin gtt per vascular surgery Dispo: PCU, with ongoing discussions with vascular surgery about the impending need for amputation, that she had tried to avoid. VS,Fishbone, I+O VS, Fishbone, I+O Laboratory Tests 02/22/20 06:03 Vital Signs Date Time Temp Pulse Resp B/P (MAP) Pulse Ox O2 Delivery O2 Flow Rate FiO2 02/22/20 17:25 99.5 79 18 148/58 (88) 91 Room Air 02/22/20 15:32 1.0 02/20/20 04:00 99 I&O- Last 24 Hours up to 6 AM 02/22/20 05:59 Intake Total 2091 ml Output Total 1375 ml Balance 716 ml SHIELA BEARDEN MD Feb 22, 2020 18:13
[2020-02-22] MEDS: NS 1,000 ML IV SCH (19:46)
[2020-02-22] MEDS: ACETAMINOPHEN TAB 650MG DOSE (2X325MG) PO PRN (22:06)
[2020-02-23] VITALS (15 sets, daily range): BP systolic 97–186; BP diastolic 53–79
[2020-02-23] MEDS: PIPERACILLIN/TAZOBACTAM SOD 3.375 GM in D5W MINI-BAG PLUS 50 ML IV SCH ×4 (01:17→20:09)
[2020-02-23 05:27] LABS: HEMATOCRIT 29.7 % (36.0-47.0); MEAN CORPUSCULAR HEMOGLOBIN 31.3 pg (27.0-33.0); PLATELET COUNT, AUTOMATED 290 10^3/uL (150-450); RED BLOOD COUNT 3.23 10^6/uL (4.00-5.40); WHITE BLOOD COUNT 12.9 10^3/uL (4.0-10.0)
[2020-02-23 05:43] LABS: BLOOD UREA NITROGEN 6 MG/DL (7-18); CALCIUM LEVEL 7.4 MG/DL (8.8-10.2); CARBON DIOXIDE LEVEL 26 MEQ/L (21-32); CHLORIDE LEVEL 101 MEQ/L (98-107); CREATININE FOR GFR 0.38 MG/DL (0.55-1.30); GLOMERULAR FILTRATION RATE > 60.0 (>32); GLUCOSE, FASTING 102 MG/DL (70-100); POTASSIUM SERUM 3.7 MEQ/L (3.5-5.1); SODIUM LEVEL 134 MEQ/L (136-145); VANCOMYCIN LEVEL TROUGH 3.5 UG/ML (10.0-20.0)
[2020-02-23 05:51] LABS: HEMOGLOBIN 10.1 g/dl (12.0-15.5)
[2020-02-23] MEDS: VANCOMYCIN HCL 1,000 MG, VIAL MATE ADAPTER 1 EACH in D5W 250 ML IV SCH ×2 (06:05→19:37)
[2020-02-23] MEDS: PRAVASTATIN 20 MG TAB PO SCH (08:51)
[2020-02-23] MEDS: ASPIRIN 81 MG ENTERIC TAB PO SCH (08:53)
--- NOTE | 2020-02-23 12:38 | IPNPDOC ---
Text Note Date of Service The patient was seen on 02/23/20. NOTE Vascular surgery. Dr. Carvajal The Patient is postoperative day #4 status post a very challenging left femoral endarterectomy and patch angioplasty, right femoral endarterectomy and patch angioplasty, and right to left femorofemoral bypass. She had near occlusive plaque, calcified and dense, in both common femoral arteries extending into the proximal profunda and superficial femoral artery bilaterally. This was a very challenging case because of the nature of her plaque and the friability of her arteries, but also due to scar tissue in the left groin that made dissection extremely challenging. However, we were able to successfully complete the operation and improve her inflow to both lower extremities significantly. The patient does have severe bilateral lower extremity SFA, popliteal, and tibial disease. She has single vessel runoff to both lower extremities. Preoperatively, her right foot was a bit cool, but color was okay with 1-2 second capillary refill, and mild excoriations over the dorsum of the foot. Preoperatively, her left foot was bluish purple in color, with foul-smelling excoriations and skin breakdown over the dorsum of the foot entirely extending onto the lateral and medial foot and the ankle. Postoperatively, the condition of her feet is relatively unchanged. She is still on a heparin drip. She has palpable puse at femoral bilaterally. The popliteal arteries have monophasic flow, and unable to Doppler good flow at the DP or PT in either lower extremity. There is 2-3 second capillary refill on the left, with a dusky discoloration of the foot, and 1-2 second capillary refill on the right, with no discoloration of the foot. Her incisions in the groin are clean dry and intact with scant drainage on the dressings. The incisions were cleaned and dried and sterile dressings were applied. The left foot was cleaned thoroughly and betadine dressings were reapplied, the right foot was cleaned and foam dressing replaced. MAXIMUM TEMPERATURE 101 2144 hrs. 02/22/20. Blood culture 2 02/21/20 negative 24 hours. Blood culture 02/19 Klebsiella and corynebacterium. Culture 2 this morning pending. Respiratory panel negative. We appreciate the hospitalist team managing the antibiotics. White blood cell count is 12.9. Status post 2 units packed red blood cells 02/22/20, hemoglobin this morning 10. No signs of bleeding are present. Both groins with no drainage on the dressings and no hematoma palpable in the groins. Pt with heavy tobacco dependence and has absolutely no interest in discussing smoking cessation. Unfortunately, I think this may be a case of loss of limb due to tobacco dependence despite our best efforts to encourage her and help her to quit smoking. She is 100% resistant to the idea despite all of our pleading. Dr. Carvajal has discussed with the patient that she will require left lower extremity amputation due to nonhealing wounds of the foot. Risks benefits and alternatives were explained and she is agreeable to proceed. Informed consent was obtained and displaced of the chart. The patient is scheduled for later today. VS,Fishbone, I+O VS, Fishbone, I+O Laboratory Tests 02/23/20 04:47 Vital Signs Date Time Temp Pulse Resp B/P (MAP) Pulse Ox O2 Delivery O2 Flow Rate FiO2 02/23/20 08:00 98.8 79 19 170/59 (96) 91 Room Air 02/22/20 15:32 1.0 02/20/20 04:00 99 I&O- Last 24 Hours up to 6 AM 02/23/20 05:59 Intake Total 2469 ml Output Total 1600 ml Balance 869 ml Heydi Lee Feb 23, 2020 12:38
[2020-02-23] MEDS ORDERED: BUPIVACAINE/EPIN 0.5% 30 ML VIAL As Ordered ONE (13:24)
[2020-02-23] MEDS ORDERED: fentaNYL 100 MCG/2 ML INJECTION (J3010) As Ordered ONE (13:29)
[2020-02-23] MEDS ORDERED: MIDAZOLAM INJ 2MG/2ML VIAL (J2250 PER 1MG) As Ordered ONE (13:31)
[2020-02-23] MEDS ORDERED: propofoL 200 MG/20 ML VIAL As Ordered ONE (13:34)
[2020-02-23] MEDS ORDERED: ONDANSETRON 4MG/2ML VIAL As Ordered ONE (13:34)
[2020-02-23] MEDS ORDERED: dexameTHASONE 4 MG/ML 1ML VIAL (J1100 PER 1MG) As Ordered ONE (13:34)
[2020-02-23] MEDS ORDERED: LIDOCAINE 2% 100MG/5ML SDV (FOR ANES.) As Ordered ONE (13:34)
[2020-02-23] MEDS: NS 1,000 ML IV SCH ×2 (14:01→20:20)
--- NOTE | 2020-02-23 14:34 | IPNPDOC ---
Date Seen The patient was seen on 02/23/20. Progress Note Patient seen and examined prior to surgery today. She is planned for a left above-knee amputation. I had a lengthy discussion with both the patient and her daughters last night about the surgery. All are in agreement. Informed consent has been obtained. Her heparin drip has been off for 2 hours. We ordered 2 g of Ancef on hold to the OR for the surgery. She will continue her regular scheduled antibiotics as well. VS, I&O, 24H, Fishbone Vital Signs/I&O Vital Signs Date Time Temp Pulse Resp B/P (MAP) Pulse Ox O2 Delivery O2 Flow Rate FiO2 02/23/20 12:00 99.1 76 19 162/64 (96) 95 Room Air 02/22/20 15:32 1.0 02/20/20 04:00 99 I&O- Last 24 Hours up to 6 AM 02/23/20 06:00 Intake Total 2469 ml Output Total 1600 ml Balance 869 ml Laboratory Data 24H LABS Laboratory Tests 2 02/23/20 04:47: Nucleated Red Blood Cells % (auto) 0.0, Activated Partial Thromboplast Time 52.8H, Anion Gap 7L, Glomerular Filtration Rate > 60.0, Calcium Level 7.4L, Vancomycin Level Trough 3.5L 02/23/20 13:08: Activated Partial Thromboplast Time 63.0H CBC/BMP Laboratory Tests 02/23/20 04:47 Microbiology Microbiology 02/23/20 Blood Culture, Received Pending 02/23/20 Blood Culture, Received Pending 02/22/20 Respiratory Virus Panel (PCR) (SRI) - Final, Complete 02/21/20 Urine Culture - Final, Complete 02/21/20 Blood Culture - Preliminary, Resulted No Growth after 48 hours. All Specime... 02/21/20 Blood Culture - Preliminary, Resulted No Growth after 48 hours. All Specime... 02/20/20 Gram Stain - Final, Complete 02/20/20 Wound Culture - Final, Complete Klebsiella Oxytoca Corynebacterium Species GAVIN TOTH MD Feb 23, 2020 14:34
[2020-02-23] MEDS ORDERED: ceFAZolin 2 GM/D5W 50 ML IV BAG (J0690 PER 500MG) As Ordered ONE (14:35)
--- NOTE | 2020-02-23 14:49 | IPNPDOC ---
Text Note Date of Service The patient was seen on 02/23/20. NOTE Subjective: No any acute events overnight. Patient had low grade fever last n ight subsided after Tylenol. Objective: VITAL SIGNS: Please see below. GENERAL: awake, alert, NAD HEENT: NCAT, anicteric sclera, JAREK NECK: supple, no JVD CARDIOVASCULAR EXAMINATION: NS1S2, regular rate/rhythm RESPIRATORY EXAMINATION: CTA b/l, no wheezes/rales/rhonchi ABDOMINAL EXAMINATION: positive bowel sounds x 4, NT EXTREMITIES: Left foot bandaged. +1 nonpitting edema. L foot cool, dark toes. RLE with mild edema, warm, also has mild TTP SKIN: warm, no rashes. NEUROLOGICAL EXAMINATION: AAO x 3, no motor/sensory deficits PSYCHIATRIC EXAMINATION: calm, normal affect Assessment and plan Patient is 79 years old female with past medical history of PAD who is s/p femoral endarterectomy and right to left femoral-femoral bypass per Vascular surgery on 02/18 c/b acute blood loss anemia 1300ml of blood during her procedure, admitted for observation s/p 3 units of PRBCs and 1 unit of FFP. Pat ient received treatment with broad-spectrum antibiotics vancomycin and Zosyn. Dr. Carvajal has discussed with the patient that she will require left lower extremity amputation due to nonhealing wounds of the foot. The surgery planned on 02/23/20 Peripheral arterial diseases s/p femoral endarterectomy and right to left femoral-femoral bypass Patient encouraged to stop smoking left lower extremity amputation due to nonhealing wounds of the foot planned today Continue vancomycin and Zosyn Continue pain management Acute blood loss anemia Status post 3 units of blood transfusion Hemoglobin is stable Hypotension Resolved Blood pressures under control Fever Patient is afebrile for now Continue broad-spectrum antibiotics Coronary artery diseases Continue home cardioprotective medication Plavix and hold VS,Fishbone, I+O VS, Fishbone, I+O Laboratory Tests 02/23/20 04:47 Vital Signs Date Time Temp Pulse Resp B/P (MAP) Pulse Ox O2 Delivery O2 Flow Rate FiO2 02/23/20 12:00 99.1 76 19 162/64 (96) 95 Room Air 02/22/20 15:32 1.0 02/20/20 04:00 99 I&O- Last 24 Hours up to 6 AM 6/16/20 06:00 Intake Total 2469 ml Output Total 1600 ml Balance 869 ml GIRISH LAMA DO Feb 23, 2020 14:49
[2020-02-23] MEDS ORDERED: PHENYLephrine HCL 500 MCG/5 ML (100MCG/ML) SYRINGE (J2370) As Ordered ONE (14:53)
[2020-02-23] MEDS ORDERED: ACETAMINOPHEN 1000MG 100ML IV BTL (OFIRMEV) (J0131 PER 10MG) As Ordered ONE (14:59)
[2020-02-23] MEDS ORDERED: PHENYLEPHRINE 10MG/ML 1ML VIAL (J2370 PER 1) As Ordered ONE ×2 (15:03→16:57)
[2020-02-23] MEDS ORDERED: HYDROmorphone HCL 2 MG/ML 1ML VIAL (J1170) As Ordered ONE (15:16)
[2020-02-23] MEDS ORDERED: ceFAZolin SOD 2 GM in IV 1 EA IV ONE (16:00)
[2020-02-23] MEDS ORDERED: ePHEDrine SULFATE 25 MG/5 ML(5MG/ML) SYRINGE As Ordered ONE (16:26)
--- NOTE | 2020-02-23 17:05 | ROOPDOC ---
[facility] Report Of Operation Report of Operation DATE OF PROCEDURE: 02/23/20 PREPROCEDURE DIAGNOSES: Gangrene left foot POSTPROCEDURE DIAGNOSES: Same PROCEDURE: Left above-knee amputation SURGEON: Gavin Carvajal MD ANESTHESIA: General anesthesia and local INDICATION FOR PROCEDURE: Very pleasant 79-year-old patient with severe end- stage peripheral vascular disease and chronic tobacco dependence who presented for an elective bilateral femoral endarterectomy and right to left femorofemoral bypass with a severely infected necrotic left foot. We discussed on her admission day doing a left AKA instead of her original planned procedure, but the patient was not ready to discuss this and wanted to proceed with her bypass procedure. We have followed her foot postoperatively for the past few days, and there is no improvement. I did not expect there would be, but the patient has also come to this conclusion and is willing to undergo a left above-knee amputation. She does not have good enough distal perfusion for a below-knee amputation. She also has too much infection now tracking up through her calf to safely do a below-knee amputation. Risks benefits alternatives to a left AKA were explained to the patient and she is agreeable to proceed. I also spoke to her family at length and they are agreeable. Informed consent was obtained. REPORT OF OPERATION: Patient was brought to the operating room in stable condition and placed supine on the or table. General anesthesia was administered along with antibiotics without compensation. Her left lower extremity is prepped and draped in a sterile fashion. Timeout was performed. The leg was exsanguinated with an Esmarch and a tourniquet was inflated to 250 mmHg. A fishmouth incision was made at the distal left femur just above the knee anteriorly and just below the knee posteriorly with the skin knife. This was carried down through the subcutaneous tissue with Bovie cautery. Initially, we had good hemostasis with the tourniquet, but after 10 minutes, the patient started having pretty profuse bleeding from all of her tissue. We deflated the tourniquet and did the rest of the case without it. Bovie cautery was used to divide the tissue over the anterior distal leg. Veins were suture ligated and divided. We continue down to the femur which was circumferentially cleared of tissue. We transected the femur with a slight anterior bevel with the bone saw. We then completed the posterior flap dissection with Bovie cautery after suture ligating the popliteal artery and veins. The leg was sent for pathology. Vicryl Stick ties and Bovie were used for hemostasis on the posterior flap. The nerve structures were high ligated and divided with local anesthesia administered around the perineural tissue. We irrigated with copious amounts of saline. A rasp was used to bevel the anterior aspect of the bone. We irrigated a second time, and then the fascia of the muscle in the posterior and anterior groups were approximated with [id number] Vicryl sutures. This covered the femur well. We then closed the deep fascia with [id number] Vicryl sutures. We then closed the superficial fascia with [id number] Vicryl sutures. The incision was irrigated. We then approximated the skin edges with nylon mattress sutures. Between the nylon mattress sutures, isabella were placed on the skin for final closure. We then dressed the wound with Xeroform, fluffs, kerlix, Leandra. The patient was allowed to awaken from anesthesia and taken to recovery in stable condition. ESTIMATED BLOOD LOSS: Approximately 200 mL. COMPLICATIONS: None. PLAN: Okay to resume preoperative diet and medications per hospitalist orders. We would like the patient high-protein diet to help with wound healing. Her nutrition has been very poor over the past few weeks. This will make healing her AKA challenging. The better her nutrition, the better her healing. We will recommend elevating her stump and we will do dressing changes in the morning. PT OT. Consult in patient rehabilitation. We will hold off on restarting heparin drip tonight. We will decide in the morning if we want to restart the heparin drip versus restart her Plavix. We would like to continue the IV antibiotics for another few days. The patient has an artificial graft from the right femoral to the left femoral, we certainly do not want any chance of that we get infected. I feel a few more days of IV antibiotics as warranted with the degree of infection she had in her foot. We appreciate the opportunity to participate in the care of this patient. GAVIN CARVAJAL MD Feb 23, 2020 17:05
[2020-02-23] MEDS ORDERED: PHENYLEPHRINE 10MG/ML 1ML VIAL (J2370 PER 1) IV SCH (17:15)
[2020-02-23] MEDS ORDERED: LR 1,000 ML IV SCH (17:15)
[2020-02-23] MEDS ORDERED: PHENYLephrine HCL 500 MCG/5 ML (100MCG/ML) SYRINGE (J2370) IV SCH (17:15)
[2020-02-23] MEDS ORDERED: fentaNYL 100 MCG/2 ML INJECTION (J3010) IV PRN (17:15)
[2020-02-23] MEDS ORDERED: ONDANSETRON 4MG/2ML VIAL IV PRN (17:15)
[2020-02-23] MEDS ORDERED: oxyCODONE 5MG TAB PO PRN (17:15)
[2020-02-23] MEDS ORDERED: ePHEDrine SULFATE 25 MG/5 ML(5MG/ML) SYRINGE IV PRN (17:15)
[2020-02-23] MEDS ORDERED: PHENYLEPHRINE HCL INJ 50 MG in D5W 500 ML IV SCH (18:00)
[2020-02-24] VITALS (19 sets, daily range): BP systolic 116–145; BP diastolic 55–65
[2020-02-24 00:31] LABS: HEMATOCRIT 28.6 % (36.0-47.0); HEMOGLOBIN 9.8 g/dl (12.0-15.5)
[2020-02-24] MEDS: PIPERACILLIN/TAZOBACTAM SOD 3.375 GM in D5W MINI-BAG PLUS 50 ML IV SCH ×3 (01:10→13:54)
[2020-02-24] MEDS: MORPHINE 1MG/ML IN 0.9% NACL 100ML IV BAG IV PRN (01:23)
[2020-02-24 05:29] LABS: HEMATOCRIT 28.9 % (36.0-47.0); HEMOGLOBIN 9.6 g/dl (12.0-15.5); MEAN CORPUSCULAR HEMOGLOBIN 31.7 pg (27.0-33.0); MEAN CORPUSCULAR HGB CONC 33.2 g/dl (32.0-36.5); MEAN CORPUSCULAR VOLUME 95.4 fl (80.0-96.0); PLATELET COUNT, AUTOMATED 260 10^3/uL (150-450); RED BLOOD COUNT 3.03 10^6/uL (4.00-5.40); WHITE BLOOD COUNT 11.1 10^3/uL (4.0-10.0)
[2020-02-24 05:39] LABS: BLOOD UREA NITROGEN 8 MG/DL (7-18); CALCIUM LEVEL 7.1 MG/DL (8.8-10.2); CARBON DIOXIDE LEVEL 27 MEQ/L (21-32); CHLORIDE LEVEL 104 MEQ/L (98-107); CREATININE FOR GFR 0.31 MG/DL (0.55-1.30); GLOMERULAR FILTRATION RATE > 60.0 (>32); GLUCOSE, FASTING 135 MG/DL (70-100); POTASSIUM SERUM 4.3 MEQ/L (3.5-5.1); SODIUM LEVEL 138 MEQ/L (136-145); VANCOMYCIN LEVEL TROUGH 10.1 UG/ML (10.0-20.0)
[2020-02-24] MEDS ORDERED: VANCOMYCIN HCL 1,000 MG, VIAL MATE ADAPTER 1 EACH in D5W 250 ML IV SCH ×2 (06:00→18:00)
[2020-02-24] MEDS: ASPIRIN 81 MG ENTERIC TAB PO SCH (08:32)
[2020-02-24] MEDS: PRAVASTATIN 20 MG TAB PO SCH (08:32)
--- NOTE | 2020-02-24 11:06 | IPNPDOC ---
Text Note Date of Service The patient was seen on 02/24/20. NOTE Vascular surgery. Dr. Brown The Patient is an 79 yo with severe end-stage peripheral vascular disease and chronic tobacco dependence, postoperative day #5 status post a very challenging left femoral endarterectomy and patch angioplasty, right femoral endarterectomy and patch angioplasty, and right to left femorofemoral bypass. She had near occlusive plaque, calcified and dense, in both common femoral arteries extending into the proximal profunda and superficial femoral artery bilaterally. This was a very challenging case because of the nature of her plaque and the friability of her arteries, but also due to scar tissue in the left groin that made dissection extremely challenging. However, we were able to successfully complete the operation and improve her inflow to both lower extremities significantly. The patient does have severe bilateral lower extremity SFA, popliteal, and tibial disease. She has single vessel runoff to both lower extremities. The pt had a severely infected necrotic left foot at time of admission, now POD1 left AKA as per Dr brown. Afebrile past 24 hours Blood culture 2 02/23/20 negative 24 hours. Blood culture 2 02/21/20 negative Blood culture 02/19 Klebsiella and corynebacterium. Respiratory panel negative. We appreciate the hospitalist team managing the antibiotics. White blood cell count is 11.1 Status post 2 units packed red blood cells 02/22/20, hemoglobin this morning 9.6. Patient is up out of bed to the chair this morning. States pain is controlled. The patient's dressing on the left AKA is dry and intact. Dry dressing to bilateral groin wounds. Offloading heel boot for the right lower extremity. Continue with foam dressing to the dorsal aspect of the right foot. Continue to monitor closely. VS,Fishbone, I+O VS, Fishbone, I+O Laboratory Tests 02/23/20 23:59 02/24/20 05:05 Vital Signs Date Time Temp Pulse Resp B/P (MAP) Pulse Ox O2 Delivery O2 Flow Rate FiO2 02/24/20 08:00 97.1 70 20 122/58 (79) 95 Room Air 02/24/20 06:00 2.0 02/20/20 04:00 99 I&O- Last 24 Hours up to 6 AM 02/24/20 05:59 Intake Total 2065 ml Output Total 1150 ml Balance 915 ml Heydi Lee Feb 24, 2020 11:06
--- NOTE | 2020-02-24 12:47 | IPNPDOC ---
Text Note Date of Service The patient was seen on 02/24/20. NOTE Subjective. No any acute events overnight. Patient stated she is very tired and upset about her health condition. She told me with tears that she doesn't want another surgery. Objective: VITAL SIGNS: Please see below. GENERAL: awake, alert, NAD HEENT: NCAT, anicteric sclera, JAREK NECK: supple, no JVD CARDIOVASCULAR EXAMINATION: NS1S2, regular rate/rhythm RESPIRATORY EXAMINATION: CTA b/l, no wheezes/rales/rhonchi ABDOMINAL EXAMINATION: positive bowel sounds x 4, NT EXTREMITIES: The patient's dressing on the left AKA is dry and intact. SKIN: warm, no rashes. NEUROLOGICAL EXAMINATION: AAO x 3, no motor/sensory deficits PSYCHIATRIC EXAMINATION: Tearful Assessment and plan Patient is 79 years old female with past medical history of PAD who is s/p femoral endarterectomy and right to left femoral-femoral bypass per Vascular surgery on 02/18 c/b acute blood loss anemia 1300ml of blood during her procedure, admitted for observation s/p 3 units of PRBCs and 1 unit of FFP. Patient received treatment with broad-spectrum antibiotics vancomycin and Zosyn. Dr. Carvajal has discussed with the patient that she will require left lower extremity amputation due to nonhealing wounds of the foot. The surgery was done on 02/23/20 Peripheral arterial diseases s/p femoral endarterectomy and right to left femoral-femoral bypass The patient does have severe bilateral lower extremity SFA, popliteal, and tibial disease. She has single vessel runoff to both lower extremities. The pt had a severely infected necrotic left foot at time of admission Patient encouraged to stop smoking left lower extremity amputation due to nonhealing wounds of the foot was done on 02/23/20 Continue vancomycin and Zosyn Continue pain management Acute blood loss anemia Status post 3 units of blood transfusion Hemoglobin is stable Hypotension Resolved Blood pressures under control Fever Patient is afebrile for now Continue broad-spectrum antibiotics Coronary artery diseases Continue home cardioprotective medication VS,Fishbone, I+O VS, Fishbone, I+O Laboratory Tests 02/23/20 23:59 02/24/20 05:05 Vital Signs Date Time Temp Pulse Resp B/P (MAP) Pulse Ox O2 Delivery O2 Flow Rate FiO2 02/24/20 12:00 97.2 64 28 129/62 (84) 95 Room Air 02/24/20 06:00 2.0 02/20/20 04:00 99 I&O- Last 24 Hours up to 6 AM 02/24/20 06:00 Intake Total 2575 ml Output Total 1175 ml Balance 1400 ml GIRISH LAMA DO Feb 24, 2020 12:47
[2020-02-24] MEDS: NS 1,000 ML IV SCH (13:54)
[2020-02-24] MEDS ORDERED: CLOPIDOGREL 75 MG TAB PO ONE (14:30)
[2020-02-24 14:39] LABS: HEMATOCRIT 27.1 % (36.0-47.0); MEAN CORPUSCULAR HEMOGLOBIN 31.8 pg (27.0-33.0); MEAN CORPUSCULAR HGB CONC 33.2 g/dl (32.0-36.5); MEAN CORPUSCULAR VOLUME 95.8 fl (80.0-96.0); PLATELET COUNT, AUTOMATED 328 10^3/uL (150-450); RED BLOOD COUNT 2.83 10^6/uL (4.00-5.40); WHITE BLOOD COUNT 12.1 10^3/uL (4.0-10.0)
[2020-02-24] MEDS: CLOPIDOGREL 75 MG TAB PO SCH (15:35)
[2020-02-24] MEDS ORDERED: LevoFLOXacin IV 500 MG in IV 1 EA IV SCH (16:00)
[2020-02-25 04:00] VITALS: BP 136/61
[2020-02-25] MEDS: NS 1,000 ML IV SCH (04:38)
[2020-02-25 05:40] LABS: HEMATOCRIT 25.9 % (36.0-47.0); HEMOGLOBIN 8.6 g/dl (12.0-15.5); MEAN CORPUSCULAR HEMOGLOBIN 31.7 pg (27.0-33.0); MEAN CORPUSCULAR HGB CONC 33.2 g/dl (32.0-36.5); MEAN CORPUSCULAR VOLUME 95.6 fl (80.0-96.0); PLATELET COUNT, AUTOMATED 363 10^3/uL (150-450); RED BLOOD COUNT 2.71 10^6/uL (4.00-5.40); WHITE BLOOD COUNT 10.3 10^3/uL (4.0-10.0)
[2020-02-25 05:57] LABS: BLOOD UREA NITROGEN 7 MG/DL (7-18); CALCIUM LEVEL 7.5 MG/DL (8.8-10.2); CARBON DIOXIDE LEVEL 30 MEQ/L (21-32); CHLORIDE LEVEL 105 MEQ/L (98-107); GLOMERULAR FILTRATION RATE > 60.0 (>32); GLUCOSE, FASTING 78 MG/DL (70-100); POTASSIUM SERUM 3.9 MEQ/L (3.5-5.1); SODIUM LEVEL 137 MEQ/L (136-145)
[2020-02-25] MEDS: MORPHINE 1MG/ML IN 0.9% NACL 100ML IV BAG IV PRN (07:13)
[2020-02-25 08:00] VITALS: BP 144/62
[2020-02-25] MEDS: PRAVASTATIN 20 MG TAB PO SCH (08:12)
[2020-02-25] MEDS: CLOPIDOGREL 75 MG TAB PO SCH (08:12)
[2020-02-25] MEDS: ASPIRIN 81 MG ENTERIC TAB PO SCH (08:12)
[2020-02-25] MEDS ORDERED: CLOPIDOGREL 75 MG TAB PO SCH (09:00)
--- NOTE | 2020-02-25 09:18 | IPNPDOC ---
Text Note Date of Service The patient was seen on 02/25/20. NOTE Vascular surgery. Dr. Carvajal The Patient is an 79 yo with severe end-stage peripheral vascular disease and chronic tobacco dependence, postoperative day #6 status post a very challenging left femoral endarterectomy and patch angioplasty, right femoral endarterectomy and patch angioplasty, and right to left femorofemoral bypass. She had near occlusive plaque, calcified and dense, in both common femoral arteries extending into the proximal profunda and superficial femoral artery bilaterally. This was a very challenging case because of the nature of her plaque and the friability of her arteries, but also due to scar tissue in the left groin that made dissection extremely challenging. However, we were able to successfully complete the operation and improve her inflow to both lower extremities significantly. The patient does have severe bilateral lower extremity SFA, popliteal, and tibial disease. She has single vessel runoff to both lower extremities. The pt had a severely infected necrotic left foot at time of admission, now POD2 left AKA as per Dr Carvajal. Afebrile. Blood culture 2 02/23/20 negative Blood culture 2 02/21/20 negative Respiratory panel negative. Urine culture negative. Wound culture left foot 02/19 Klebsiella and corynebacterium. The patient's antibiotics were switched to IV Levaquin 02/23 after review of the patient's wound culture and sensitivity/SRI from 02/20/20. This a.m. WBC10.3 Status post 2 units packed red blood cells 02/22/20, hemoglobin this morning 8.6. States pain is controlled. The patient's dressing on the left AKA is removed, the incision appears to be healing and there is no drainage. No surrounding erythema. Isabella are intact. The area is thoroughly cleaned, Xeroform applied, fluffs, dry gauze, Kerlix. Bilateral groin wounds are examined and thoroughly cleaned, isabella are intact. The right groin with minimal erythema surrounding isabella, no drainage. The area is thoroughly cleaned, dry dressing is reapplied. There is some ecchymosis around the left groin, the patient is noted to have a hematoma which is less tense today. Offloading heel boot for the right lower extremity. The patient's toes of the right foot are cool to touch, 4 second capillary refill. The patient has dark discoloration of the dorsum with some peeling skin, Betadine is applied. Continue with foam dressing to the dorsal aspect of the right foot. We are unable to Doppler DP/PT this morning at the bedside. Continue to monitor perfusion of the right lower extremity closely. VS,Fishbone, I+O VS, Fishbone, I+O Laboratory Tests 02/24/20 14:06 02/25/20 05:05 Vital Signs Date Time Temp Pulse Resp B/P (MAP) Pulse Ox O2 Delivery O2 Flow Rate FiO2 02/25/20 08:00 98.8 64 18 144/62 (89) 96 Room Air 02/24/20 06:00 2.0 02/20/20 04:00 99 I&O- Last 24 Hours up to 6 AM 02/25/20 06:00 Intake Total 1840 ml Output Total 750 ml Balance 1090 ml Heydi Lee Feb 25, 2020 09:12
[2020-02-25 12:00] VITALS: BP 124/72
--- NOTE | 2020-02-25 12:25 | IPNPDOC ---
Date Seen The patient was seen on 02/25/20. Progress Note Patient seen and examined this morning. Both groin incisions are clean dry and intact. The right is healing well, the left has inferior incision bruising. Postoperatively, the patient left groin firmness which I believe was associated with mild hematoma versus inflammation and edema, but it seems to be getting softer everyday, soft and nontender today. The femorofemoral bypass has a good signal. The left AKA incision is clean dry and intact. No bruising or significant drainage is noted. The right foot excoriations and mottling over the dorsum of the foot near the ankle so far is not improving. Unfortunately, I am worried that she does not have enough perfusion, even with improved inflow, to maintain her foot. She has severe Buerger's disease, and I reviewed her CTA again today to see if there were any options I may not have initially for distal revascularization. Unfortunately, the patient has such severe disease in her SFA, popliteal, and tibials with ready single-vessel runoff that does not reach the foot. Without distal outflow, a bypass distally will not remain patent. I discussed with the patient and her daughters the dismal prognosis for her right foot. I still am having trouble Dopplering DP or PT flow, and her capillary refill is 3-4 seconds. Her foot still has motor and sensory intact, and there is no wet or dry gangrene. Therefore, since she just underwent left AKA, I'd like to hold off on any further intervention for at least 2 weeks if we can maintain her foot in a stable safe situation. However, should she develop wet gangrene or an ascending infection, this would force us to proceed sooner. The patient and her family realize she may need a right above-knee amputation, are understandably disappointed. However for now, we will continue to provide daily wound care, offload her heel with a soft boot, and we can hope that things will remain stable so further intervention is not urgent at this time. I do think it's okay for the patient to go to acute rehabilitation. With her in the hospital, I can keep an eye on her right foot, and she can start working towards being more proficient with her transfers and getting around in a wheelchair, which she will need whether or not she loses her other leg. The patient and her family are agreeable. VS, I&O, 24H, Fishbone Vital Signs/I&O Vital Signs Date Time Temp Pulse Resp B/P (MAP) Pulse Ox O2 Delivery O2 Flow Rate FiO2 02/25/20 08:00 98.8 64 18 144/62 (89) 96 Room Air 02/24/20 06:00 2.0 02/20/20 04:00 99 I&O- Last 24 Hours up to 6 AM 02/25/20 06:00 Intake Total 1840 ml Output Total 750 ml Balance 1090 ml Laboratory Data 24H LABS Laboratory Tests 2 02/24/20 12:59: Vancomycin Level Trough 15.7 02/24/20 14:06: Nucleated Red Blood Cells % (auto) 0.0 02/25/20 05:05: Nucleated Red Blood Cells % (auto) 0.0, Activated Partial Thromboplast Time 33.1, Anion Gap 2L, Glomerular Filtration Rate > 60.0, Calcium Level 7.5L CBC/BMP Laboratory Tests 02/24/20 14:06 02/25/20 05:05 Microbiology Microbiology 02/23/20 Blood Culture - Preliminary, Resulted No Growth after 48 hours. All Specime... 02/23/20 Blood Culture - Preliminary, Resulted No Growth after 48 hours. All Specime... 02/22/20 Respiratory Virus Panel (PCR) (SRI) - Final, Complete 02/21/20 Urine Culture - Final, Complete 02/21/20 Blood Culture - Preliminary, Resulted No Growth after 72 hours. All specime... 02/21/20 Blood Culture - Preliminary, Resulted No Growth after 72 hours. All specime... 02/20/20 Gram Stain - Final, Complete 02/20/20 Wound Culture - Final, Complete Klebsiella Oxytoca Corynebacterium Species GAVIN TOTH MD Feb 25, 2020 12:25
--- NOTE | 2020-02-25 16:33 | DS.PDOC ---
Discharge Summary General Date of Admission Feb 19, 2020 at 05:59 Date of Discharge 02/25/20 Discharge Summary PROCEDURES PERFORMED DURING STAY: [None]. ADMITTING DIAGNOSES: Peripheral arterial diseases s/p femoral endarterectomy and right to left femoral-femoral bypass Acute blood loss anemia Hypotension Fever Coronary artery diseases DISCHARGE DIAGNOSES: Peripheral arterial diseases s/p femoral endarterectomy and right to left femoral-femoral bypass Acute blood loss anemia Hypotension Fever Coronary artery diseases COMPLICATIONS/CHIEF COMPLAINT: Atherosclerosis Of The [place] Arteries.... HISTORY OF PRESENT ILLNESS: Patient is 79 years old female with past medical history of PAD who is s/p femoral endarterectomy and right to left femoral- femoral bypass per Vascular surgery on 02/18 c/b acute blood loss anemia 1300ml of blood during her procedure, admitted for observation s/p 3 units of PRBCs and 1 unit of FFP. Patient received treatment with broad-spectrum antibiotics vancomycin and Zosyn. Dr. Carvajal has discussed with the patient that she will require left lower extremity amputation due to nonhealing wounds of the foot. The surgery was done on 02/23/20 HOSPITAL COURSE: During hospital stay following issue addressed Peripheral arterial diseases s/p femoral endarterectomy and right to left femoral-femoral bypass The patient does have severe bilateral lower extremity SFA, popliteal, and tibial disease. She has single vessel runoff to both lower extremities. The pt had a severely infected necrotic left foot at time of admission Patient encouraged to stop smoking left lower extremity amputation due to nonhealing wounds of the foot was done on 02/23/20 Patient will need levofloxacin by mouth for next 12 days Acute blood loss anemia Status post 3 units of blood transfusion Hemoglobin is stable Hypotension Resolved Blood pressures under control Fever Patient is afebrile for now Continue broad-spectrum antibiotics Coronary artery diseases Continue home cardioprotective medication Plavix and hold DISCHARGE MEDICATIONS: Please see below. ALLERGIES: Please see below. PHYSICAL EXAMINATION ON DISCHARGE: VITAL SIGNS: Please see below. GENERAL: awake, alert, NAD HEENT: NCAT, anicteric sclera, JAREK NECK: supple, no JVD CARDIOVASCULAR EXAMINATION: NS1S2, regular rate/rhythm RESPIRATORY EXAMINATION: CTA b/l, no wheezes/rales/rhonchi ABDOMINAL EXAMINATION: positive bowel sounds x 4, NT EXTREMITIES: The patient's dressing on the left AKA is dry and intact. SKIN: warm, no rashes. NEUROLOGICAL EXAMINATION: AAO x 3, no motor/sensory deficits PSYCHIATRIC EXAMINATION: Tearful LABORATORY DATA: Please see below. PROGNOSIS: Fair ACTIVITY: [As tolerated]. DIET: Cardiac DISPOSITION: 62 D/T Rehab Facility. DISCHARGE INSTRUCTIONS: Follow surgeon recommendation ITEMS TO FOLLOWUP ON ON OUTPATIENT: Follow-up with Dr. Charlton DISCHARGE CONDITION: [Stable]. TIME SPENT ON DISCHARGE: Greater than 20 minutes. Vital Signs/I&Os Vital Signs Date Time Temp Pulse Resp B/P (MAP) Pulse Ox O2 Delivery O2 Flow Rate FiO2 02/25/20 12:00 98.3 71 18 124/72 (89) 95 Room Air 02/24/20 06:00 2.0 02/20/20 04:00 99 I&O- Last 24 Hours up to 6 AM 02/25/20 06:00 Intake Total 1840 ml Output Total 750 ml Balance 1090 ml Laboratory Data Labs 24H Laboratory Tests 2 02/25/20 05:05: Nucleated Red Blood Cells % (auto) 0.0, Activated Partial Thromboplast Time 33.1, Anion Gap 2L, Glomerular Filtration Rate > 60.0, Calcium Level 7.5L CBC/BMP Laboratory Tests 02/25/20 05:05 Microbiology Microbiology 02/23/20 Blood Culture - Preliminary, Resulted No Growth after 48 hours. All Specime... 02/23/20 Blood Culture - Preliminary, Resulted No Growth after 48 hours. All Specime... 02/22/20 Respiratory Virus Panel (PCR) (SRI) - Final, Complete 02/21/20 Urine Culture - Final, Complete 02/21/20 Blood Culture - Preliminary, Resulted No Growth after 72 hours. All specime... 02/21/20 Blood Culture - Preliminary, Resulted No Growth after 72 hours. All specime... 02/20/20 Gram Stain - Final, Complete 02/20/20 Wound Culture - Final, Complete Klebsiella Oxytoca Corynebacterium Species Discharge Medications Scheduled Aspirin (Aspirin EC) 81 Mg Tablet., 81 MG PO DAILY, (Reported) Cholecalciferol (Vitamin D3) (Vitamin D3) 1,000 Unit Tablet, 1,000 UNITS PO DAILY, (Reported) Clopidogrel Bisulfate (Plavix) 75 Mg Tablet, 75 MG PO DAILY, (Reported) Losartan Potassium (Losartan Potassium) 100 Mg Tablet, 100 MG PO DAILY, (Re ported) Multivit-Min/FA/Lycopen/Lutein (Centrum Silver Tablet) 1 Each Tablet, 1 TAB PO DAILY, (Reported) Oxycodone HCl/Acetaminophen (Oxycodone-Acetaminophen 5-325) 1 Each Tablet, 1 TAB PO Q6H, (Reported) Pravastatin Sodium (Pravastatin Sodium) 20 Mg Tablet, 1 TAB PO DAILY, (Reported) Spironolactone (Aldactone) 25 Mg Tablet, 25 MG PO DAILY, (Reported) Vit A/Vit C/Vit E/Zinc/Copper (Preservision Areds Tablet) 1 Each Tablet, 1 TAB PO DAILY, (Reported) Allergies Coded Allergies: ciprofloxacin (Verified Adverse Reaction, Intermediate, gives pt c-diff, 02/12/20) GIRISH LAMA DO Feb 25, 2020 16:33
== END 2020-02-25 15:20 | DRG 240 ==
LOC: M OR 05:59 → M ICU 18:42 → M PCU 02-21 22:39 → M ICU 02-23 18:34 → M PCU 02-24 23:04 → M PM&R 02-25 15:17 → M PCU 02-25 15:17 → UNDODISIN 02-25 15:20
PROVIDERS: ADMIT Surgery Vascular Surgery; ATTEND Internal Medicine
PROC: 04CL0ZZ Extirpation of Matter from Left Femoral Artery, Open Approach (ICD-10-PCS; 2020-02-19)
PROC: 041K0JJ Bypass Right Femoral Artery to Left Femoral Artery with Synthetic Substitute, Open Approach (ICD-10-PCS; 2020-02-19)
PROC: 30233N1 Transfusion of Nonautologous Red Blood Cells into Peripheral Vein, Percutaneous Approach (ICD-10-PCS; 2020-02-19)
PROC: 30233K1 Transfusion of Nonautologous Frozen Plasma into Peripheral Vein, Percutaneous Approach (ICD-10-PCS; 2020-02-19)
PROC: 0Y6D0Z2 Detachment at Left Upper Leg, Mid, Open Approach (ICD-10-PCS; principal; 2020-02-23 15:00)
DX: I70.263 Atherosclerosis of native arteries of extremities with gangrene, bilateral legs (principal); D62 Acute posthemorrhagic anemia; F17.200 Nicotine dependence, unspecified, uncomplicated; Z11.59 Encounter for screening for other viral diseases; I10 Essential (primary) hypertension; I25.10 Atherosclerotic heart disease of native coronary artery without angina pectoris; I95.9 Hypotension, unspecified; R50.9 Fever, unspecified; Z79.82 Long term (current) use of aspirin; Z79.899 Other long term (current) drug therapy; Z88.8 Allergy status to other drugs, medicaments and biological substances; E78.5 Hyperlipidemia, unspecified

== ENCOUNTER 2020-02-25 12:44 | Inpatient (IN) | payer MEDICARE ==
[~2020-02-25] VITALS: Ht 165.1 cm; Wt 51.2 kg
[2020-02-25] MEDS ORDERED: BISACODYL 5 MG TAB PO PRN (13:00)
[2020-02-25] MEDS ORDERED: BISACODYL 10 MG SUPP PR PRN (13:00)
--- NOTE | 2020-02-25 13:00 | HPEPDOC ---
[employer] Note DATE OF ADMISSION: 02-25-20 DATE OF SERVICE: 02-25-20 TIME OF ADMISSION: Please refer to physician's admission order. SOURCE OF ADMISSION INFORMATION: [facility] record and patient CHIEF COMPLAINT: left AKA HISTORY OF PRESENT ILLNESS: 79F pmh HTN, HLD, CAD, PAD admitted to [facility] on 02-19-20 under the vascular service for a bilateral femoral endarterectomy and right to left femoral-femoral bypass. She was placed on a heparin drip and her surgery was complicated by post-op anemia requiring 3 units prbcs and 1 unit FFP. She also developed post-op fever with inconclusive infectious work-up and was maintained on empiric coverage. She was then scheduled for a left AKA performed 02-23-20 due to a non-healing foot ulcer with persistent poor perfusion. Vascular surgery recommended close follow- up given her poor vascular prognosis in the setting of Buergers disease. She was evaluated by therapy, found to have impairments in mobility and ADLs and deemed medically appropriate for discharge to ARU on 02-25-20. REVIEW OF SYSTEMS: The following is a completed review of systems and has been reviewed. Review of systems otherwise unremarkable. PAIN: Patient self reports left residual limb pain EYES: No recent vision changes EARS, NOSE, & THROAT: No throat pain, or dysphagia, or rhinorrhea CARDIOVASCULAR: Denies chest pain or palpitations PULMONARY: Denies shortness of breath GASTROINTESTINAL: Denies constipation/diarrhea GENITOURINARY: denies dysuria MUSCULOSKELETAL: LLE AKA NEUROLOGICAL:+paresthesias right foot HEMATOLOGICAL: +anemia SKIN: scattered ecchymosis, left residual limb incision, right foot wound PSYCHIATRIC: Unremarkable All other review of systems found to be negative. PAST MEDICAL HISTORY: as per HPI PAST SURGICAL HISTORY: Cataract surgery, LLE angiogram 12/08/19 ALLERGIES: Please see below. MEDICATIONS: Please see below. FAMILY HISTORY:Cardiac, stroke, DM SOCIAL HISTORY: +daily smoker, no etoh/illicit drugs DIET: low sodium PHYSICAL EXAMINATION: VITAL SIGNS: Please see below. GENERAL: Pleasant and cooperative. No acute distress. HEENT: PERRL. Extraocular movements intact. Clear conjunctiva CARDIOVASCULAR: Regular rate and rhythm. No murmurs, rubs, or gallops LUNGS: Clear to auscultation bilaterally. No wheezes. No rhonchi ABDOMEN: Soft, nontender, nondistended. Positive bowel sounds. Normal active bowel sounds NEUROLOGICAL: Alert and oriented times three. Cranial nerves II through XII grossly intact. Sensation decreased to light touch RLE EXTREMITIES: 5\5 strength bilateral upper extremities. 4+\5 strength right lower extremity. 4+/5 strength in left hip flexion. SKIN: left AKA incision c/d/i no induration or drainage right midfoot with ulcers with exudate bilat groin incisions no drainage LABORATORY DATA: Please see below. IMAGING: Imaging documentation personally reviewed by record FUNCTIONAL STATUS: Premorbid: Independent with all activities of daily life as well as mobility On Admission: Mod assist for bed mobility, functional transfers, ADLs GOALS: Mod-I from a wheelchair level, functional transfers, dressing, bathing, toileting, limb care ASSESSMENT:79-year-old F with past medical history of Buerger's disease who presents status post left AKA PLAN: 1. Rehab- PT/OT advance gait and ADLs, strengthen/stretch/maintain ROM all 4limbs, desensitization therapy 2. Vasc- s/p left AKa 02-23-20, vascular consulted -c/u ASA and Plavix for PAD 3. CArdiac- hx of HTN c/u losartan and spironolactone- medicine consulted to assist in management -CAD on ASA -HLD c/u statin 4. resp- smoker, will start DUonebs and monitor for infection 4. ID- c/u levaquin, discussed with medicine will switch to po as same bioavailability for LLE wound healing, monitor CRPs and leukocytosis 5. Heme- post op anemia, consider transfusion if Hgb <8 6. DVT ppx- heparin 7. GI ppx- protonix 8. Pain- tylenol, oxycodone prn 9. Disop- TBD POST ADMISSION PHYSICIAN EVALUATION: Medical and functional status: Description of medical status, medical assessment: As above. Rehabilitation diagnosis and current and prior cold morbid medical conditions as above. Risk of complications and plans to mitigate them as above. Description of functional status current status is as above. Prior status as above. Status compared to preadmission: There are no clinically significant differences between the patient's current status and the information described on the preadmission screening document. Treatment plan anticipated: Treatment plan is as described above. Required disciplines including physical therapy, occupational therapy, others as noted above Intensity of services: 3 hours a day, 6 days a week. Special considerations: There are no specific special or safety considerations that would likely preclude immediate implementation of an intensive rehabilitation program or subsequently influence the plan of care. ATTESTATION: Considering all the information above, it is my best judgment that this patient requires intensive rehabilitation therapy as described above and an inpatient hospital environment due to the complexity of nursing, medical, and rehabilitation needs required by the patient. Furthermore, this patient can reasonably be expected to participate in an benefit from an inpatient rehabilitation stay with an interdisciplinary team approach to the delivery of rehabilitation care under the direction and supervision of rehabilitation physician PROGNOSIS: Good ESTIMATED LENGTH OF STAY:10-14 days. PROJECTED DISCHARGE DESTINATION: Home with family support and any durable medical equipment required to increase functional safety and mobility TIME SPENT COUNSELING AND COORDINATING INITIAL CARE: Greater than 70 minutes. Vital Signs please refer to EMR Home Medications Scheduled Aspirin (Aspirin EC) 81 Mg Tablet.dr, 81 MG PO DAILY, (Reported) Cholecalciferol (Vitamin D3) (Vitamin D3) 1,000 Unit Tablet, 1,000 UNITS PO DAILY, (Reported) Clopidogrel Bisulfate (Plavix) 75 Mg Tablet, 75 MG PO DAILY, (Reported) Losartan Potassium (Losartan Potassium) 100 Mg Tablet, 100 MG PO DAILY, (Reported) Multivit-Min/FA/Lycopen/Lutein (Centrum Silver Tablet) 1 Each Tablet, 1 TAB PO DAILY, (Reported) Oxycodone HCl/Acetaminophen (Oxycodone-Acetaminophen 5-325) 1 Each Tablet, 1 TAB PO Q6H, (Reported) Pravastatin Sodium (Pravastatin Sodium) 20 Mg Tablet, 1 TAB PO DAILY, (Reported) Spironolactone (Aldactone) 25 Mg Tablet, 25 MG PO DAILY, (Reported) Vit A/Vit C/Vit E/Zinc/Copper (Preservision Areds Tablet) 1 Each Tablet, 1 TAB PO DAILY, (Reported) Allergies Coded Allergies: ciprofloxacin (Verified Adverse Reaction, Intermediate, gives pt c-diff, 02/12/20) A-FIB/CHADSVASC A-FIB History Current/History of A-Fib/PAF?: No NAOMI CHAPA MD Feb 25, 2020 13:00
[2020-02-25 15:20] VITALS: BP 129/96
[2020-02-25] MEDS: ACETAMINOPHEN 500 MG TAB PO SCH ×2 (16:00→21:14)
[2020-02-25] MEDS: REMEDY PHYTOPLEX Z-GUARD PASTE 113GM TUBE (FROM STOREROOM PRODUCT) TOP SCH ×2 (16:00→21:00)
[2020-02-25] MEDS: LACTOBACILLUS ACIDOPHILUS CAP (BACID) PO SCH ×2 (16:00→21:14)
[2020-02-25] MEDS: IPRATROPIUM 0.5MG/ALBUTEROL 2.5MG INH SOL UD 3ML (DUONEB) NEB SCH (19:43)
[2020-02-25 20:00] VITALS: BP 166/70
[2020-02-25] MEDS: SENNA 8.6 MG TAB (SENOKOT) PO SCH (21:00)
[2020-02-25] MEDS: DOCUSATE SODIUM 100 MG CAP PO SCH (21:00)
[2020-02-25] MEDS: HEPARIN SOD (PORCINE) 5000UNITS/ML VIAL (J1644 PER 1000UNITS) SC SCH (21:13)
[2020-02-26] MEDS: LevoFLOXacin 500 MG TABLET PO SCH (05:27)
[2020-02-26 06:00] VITALS: BP 150/70
[2020-02-26] MEDS: IPRATROPIUM 0.5MG/ALBUTEROL 2.5MG INH SOL UD 3ML (DUONEB) NEB SCH ×3 (07:26→19:13)
[2020-02-26] MEDS: ZINC SULFATE 220 MG CAP PO SCH (08:07)
[2020-02-26] MEDS: ASCORBIC ACID 500 MG TAB PO SCH (08:07)
[2020-02-26] MEDS: LACTOBACILLUS ACIDOPHILUS CAP (BACID) PO SCH ×3 (08:07→20:57)
[2020-02-26] MEDS: ASPIRIN 81 MG ENTERIC TAB PO SCH (08:07)
[2020-02-26] MEDS: ACETAMINOPHEN 500 MG TAB PO SCH ×3 (08:08→20:55)
[2020-02-26] MEDS: CLOPIDOGREL 75 MG TAB PO SCH (08:08)
[2020-02-26] MEDS: HEPARIN SOD (PORCINE) 5000UNITS/ML VIAL (J1644 PER 1000UNITS) SC SCH ×2 (08:08→20:57)
[2020-02-26] MEDS: LOSARTAN 50MG TABLET PO SCH (08:08)
[2020-02-26] MEDS: SPIRONOLACTONE 25 MG TAB PO SCH (08:08)
[2020-02-26] MEDS: PANTOPRAZOLE 40MG TAB (PROTONIX) PO SCH (08:08)
[2020-02-26] MEDS: DOCUSATE SODIUM 100 MG CAP PO SCH ×2 (08:08→20:57)
[2020-02-26] MEDS: REMEDY PHYTOPLEX Z-GUARD PASTE 113GM TUBE (FROM STOREROOM PRODUCT) TOP SCH ×3 (08:09→20:58)
--- NOTE | 2020-02-26 08:48 | IPNPDOC ---
Date Seen The patient was seen on 02/26/20. Progress Note Patient seen and examined now one week status post a very challenging bilateral common femoral endarterectomy and right to left femorofemoral bypass, and 3 days status post left above-knee amputation for gangrene of the left foot present prior to her initial surgery. The patient is doing okay today, but says she was up most of the night with diarrhea and urgent voiding of urine. Today she, she says her stomach feels better and she thinks that has settled down. However, she is a bit tired. She still doesn't have much of an appetite, and we encourage her to use much protein and she can for healing. On exam, the right groin incision is clean dry and intact and healing well. No drainage is noted. The incision was clean, dry gauze and paper tape were applied. She has a bounding pulse at the right common femoral artery. The left incision is a bit more tenuous due to a resolving mild postop hematoma in the left groin. Today, the groin is soft, comparable to the right side. There is still some bruising inferior to the incision, but this is starting to resolve as well. The skin in the area of bruising is a bit tenuous, but so far the incision is still healing well with no drainage or signs of infection. There is a bounding pulse at the left common femoral artery as well. I can Doppler good flow through the profundus bilaterally and the right to left femorofemoral bypass. Distal to this, the patient has scant flow. She has Buerger's disease with no named vessels patent at the foot and the right lower extremity. I cannot Doppler DP or PT, at the capillary refill is a little better today at 2-3 seconds instead of 4 seconds. The dorsal foot mottling and ulceration appeared stable. There is no deterioration of the foot on my exam today. The foot was cleaned, and dressed with a foam dressing. The left AKA stump is clean dry and intact. No significant drainage noted on the dressing. The incision was cleaned, Xeroform fluffs kerlix and a Coban on were placed. The patient tolerated the dressing change well. We are hoping that the patient has enough improvement in flow in the right lower extremity to maintain her leg. Unfortunately, we do not have an option for distal revascularization, and have only improved her inflow to her collateral circulation. However, with severe microvascular disease from the ankle through the foot, it is unclear if she will be able to maintain the right lower extremity. We have discussed that she may require a right above-knee amputation as well, but if this is the case, we are hopeful that it can wait a few weeks to give her body a chance to acclimate to the left above-knee amputation. There are significant changes and hemodynamics after above-knee amputation, and bilateral above-knee amputations on the same day or within a few days of each other can be very challenging with regards to recovery. Therefore, we are hopeful that her foot will remain stable. There is a small chance that it will improve with time, as long as she has absolutely no indicating intake. Since she has been adamant that she will not quit smoking, I feel her foot has a dismal prognosis. We will see if she has changed her mind once she is discharged from rehabilitation. I have spoken with her daughters about this and they understand that we are in a [id number] pattern for the right lower extremity, but so far things are going well after the bypass in her left lower extremity amputation. We would like to continue antibiotics due to the infected nature of the left foot at the time of femorofemoral bypass with PTFE, because if the bypass gets infected, we will have to remove it which will significantly limit her left lower extremity in flow and have a significant amount of morbidity and mortality. We appreciate the opportunity to participate in the care of this patient. VS, I&O, 24H, Fishbone Vital Signs/I&O Vital Signs Date Time Temp Pulse Resp B/P (MAP) Pulse Ox O2 Delivery O2 Flow Rate FiO2 02/26/20 06:00 98.4 91 19 150/70 (96) 94 Room Air I&O- Last 24 Hours up to 6 AM 02/26/20 05:59 Intake Total 240 ml Balance 240 ml GAVIN TOTH MD Feb 26, 2020 08:48
[2020-02-26] MEDS ORDERED: PRAVASTATIN 20 MG TAB PO SCH (09:00)
[2020-02-26 10:57] LABS: BASO % 0.3 % (0.0-1.0); EOS % 0.2 % (0.0-3.0); HEMATOCRIT 27.7 % (36.0-47.0); HEMOGLOBIN 9.1 g/dl (12.0-15.5); LYMPH # 0.8 10^3/uL (1.5-5.0); LYMPH % 7.4 % (24.0-44.0); MEAN CORPUSCULAR HEMOGLOBIN 31.2 pg (27.0-33.0); MEAN CORPUSCULAR HGB CONC 32.9 g/dl (32.0-36.5); MEAN CORPUSCULAR VOLUME 94.9 fl (80.0-96.0); MONO # 0.7 10^3/uL (0.0-0.8); NEUTROPHILS # 8.6 10^3/uL (1.5-8.5); PLATELET COUNT, AUTOMATED 449 10^3/uL (150-450); RED BLOOD COUNT 2.92 10^6/uL (4.00-5.40); WHITE BLOOD COUNT 10.2 10^3/uL (4.0-10.0)
[2020-02-26] MEDS: oxyCODONE 5MG TAB PO PRN ×3 (10:57→20:56)
[2020-02-26 11:23] LABS: ALBUMIN 1.6 GM/DL (3.2-5.2); ALT/SGPT 29 U/L (12-78); BILIRUBIN,TOTAL 0.4 MG/DL (0.2-1.0); BLOOD UREA NITROGEN 8 MG/DL (7-18); C REACTIVE PROTEIN QUANTITATIV 5.31 MG/DL (0.00-0.30); CALCIUM LEVEL 7.7 MG/DL (8.8-10.2); CARBON DIOXIDE LEVEL 28 MEQ/L (21-32); CHLORIDE LEVEL 106 MEQ/L (98-107); CREATININE FOR GFR 0.47 MG/DL (0.55-1.30); GLOMERULAR FILTRATION RATE > 60.0 (>32); GLUCOSE, FASTING 99 MG/DL (70-100); POTASSIUM SERUM 3.9 MEQ/L (3.5-5.1); SODIUM LEVEL 140 MEQ/L (136-145); TOTAL PROTEIN 4.7 GM/DL (6.4-8.2)
--- NOTE | 2020-02-26 12:01 | IPNPDOC ---
Text Note Date of Service The patient was seen on 02/26/20. NOTE Subjective. No any acute events overnight. Patient stated that her mood improved and in general she feels much better. Objective: VITAL SIGNS: Please see below. GENERAL: awake, alert, NAD HEENT: NCAT, anicteric sclera, JAREK NECK: supple, no JVD CARDIOVASCULAR EXAMINATION: NS1S2, regular rate/rhythm RESPIRATORY EXAMINATION: CTA b/l, no wheezes/rales/rhonchi ABDOMINAL EXAMINATION: positive bowel sounds x 4, NT EXTREMITIES: The patient's dressing on the left AKA is dry and intact. SKIN: warm, no rashes. NEUROLOGICAL EXAMINATION: AAO x 3, no motor/sensory deficits PSYCHIATRIC EXAMINATION: Tearful Assessment and plan Patient is 79 years old female with past medical history of PAD who is s/p femoral endarterectomy and right to left femoral-femoral bypass per Vascular s urgery on 02/18 c/b acute blood loss anemia 1300ml of blood during her procedure, admitted for observation s/p 3 units of PRBCs and 1 unit of FFP. Patient received treatment with broad-spectrum antibiotics vancomycin and Zosyn. Dr. Carvajal has discussed with the patient that she will require left lower extremity amputation due to nonhealing wounds of the foot. The surgery was done on 02/23/20. Patient was transferred to acute rehabilitation unit Peripheral arterial diseases s/p femoral endarterectomy and right to left femoral-femoral bypass The patient does have severe bilateral lower extremity SFA, popliteal, and tibial disease. She has single vessel runoff to both lower extremities. The pt had a severely infected necrotic left foot at time of admission Patient encouraged to stop smoking left lower extremity amputation due to nonhealing wounds of the foot was done on 02/23/20 Continue levofloxacin PO Continue pain management Normocytic anemia Secondary to chronic diseases We'll check iron panel Smoking abuse Counseling Coronary artery diseases Continue home cardioprotective medication I added atorvastatin instead of pravastatin, will start beta [place] Hypertension Continue losartan VS,Fishbone, I+O VS, Fishbone, I+O Laboratory Tests 02/26/20 10:37 Vital Signs Date Time Temp Pulse Resp B/P (MAP) Pulse Ox O2 Delivery O2 Flow Rate FiO2 02/26/20 11:27 17 02/26/20 06:00 98.4 91 150/70 (96) 94 Room Air I&O- Last 24 Hours up to 6 AM 02/26/20 06:00 Intake Total 240 ml Balance 240 ml GIRISH LAMA DO Feb 26, 2020 12:01
[2020-02-26 12:36] LABS: IRON (FE) 32 UG/DL (50-170); PERCENT SATURATION 19.3 % (13.2-45.0); TOTAL IRON BINDING CAPACITY 166 UG/DL (250-450)
[2020-02-26] MEDS ORDERED: METOPROLOL TART 25 MG TABLET PO ONE (13:00)
[2020-02-26 14:00] VITALS: BP 140/62
[2020-02-26 20:00] VITALS: BP 164/72
[2020-02-26] MEDS: SENNA 8.6 MG TAB (SENOKOT) PO SCH (20:57)
[2020-02-26 23:20] VITALS: BP 164/64
[2020-02-27] MEDS: oxyCODONE 5MG TAB PO PRN ×4 (01:35→20:17)
[2020-02-27 02:40] VITALS: BP 192/78
[2020-02-27] MEDS ORDERED: amLODIPine 10 MG TAB PO ONE (02:45)
[2020-02-27] MEDS: LevoFLOXacin 500 MG TABLET PO SCH (05:10)
[2020-02-27 05:20] VITALS: BP 188/78
[2020-02-27] MEDS ORDERED: **hydrALAZINE HCL** 25 MG TAB PO ONE (05:30)
[2020-02-27] MEDS: IPRATROPIUM 0.5MG/ALBUTEROL 2.5MG INH SOL UD 3ML (DUONEB) NEB SCH ×3 (07:55→19:06)
[2020-02-27] MEDS: CLOPIDOGREL 75 MG TAB PO SCH (08:29)
[2020-02-27] MEDS: ZINC SULFATE 220 MG CAP PO SCH (08:29)
[2020-02-27] MEDS: LACTOBACILLUS ACIDOPHILUS CAP (BACID) PO SCH ×3 (08:29→20:17)
[2020-02-27] MEDS: ASPIRIN 81 MG ENTERIC TAB PO SCH (08:29)
[2020-02-27] MEDS: HEPARIN SOD (PORCINE) 5000UNITS/ML VIAL (J1644 PER 1000UNITS) SC SCH ×2 (08:29→20:17)
[2020-02-27] MEDS: ASCORBIC ACID 500 MG TAB PO SCH (08:29)
[2020-02-27 08:30] VITALS: BP 184/77
[2020-02-27] MEDS: ATORVASTATIN 20 MG TAB PO SCH (08:30)
[2020-02-27] MEDS: LOSARTAN 50MG TABLET PO SCH (08:30)
[2020-02-27] MEDS: SPIRONOLACTONE 25 MG TAB PO SCH (08:30)
[2020-02-27] MEDS: PANTOPRAZOLE 40MG TAB (PROTONIX) PO SCH (08:30)
[2020-02-27] MEDS: ACETAMINOPHEN 500 MG TAB PO SCH ×3 (08:31→20:17)
[2020-02-27] MEDS: DOCUSATE SODIUM 100 MG CAP PO SCH ×2 (08:32→20:17)
[2020-02-27] MEDS: REMEDY PHYTOPLEX Z-GUARD PASTE 113GM TUBE (FROM STOREROOM PRODUCT) TOP SCH ×3 (08:33→20:18)
[2020-02-27 11:01] VITALS: BP 162/78
[2020-02-27 14:00] VITALS: BP 152/67
[2020-02-27 20:00] VITALS: BP 137/63
[2020-02-27] MEDS: SENNA 8.6 MG TAB (SENOKOT) PO SCH (20:17)
[2020-02-27] MEDS ORDERED: amLODIPine 5 MG TAB PO ONE (23:45)
[2020-02-28] MEDS: oxyCODONE 5MG TAB PO PRN ×4 (00:33→20:30)
[2020-02-28] MEDS: LevoFLOXacin 500 MG TABLET PO SCH (05:06)
[2020-02-28 06:00] VITALS: BP 158/70
[2020-02-28] MEDS: IPRATROPIUM 0.5MG/ALBUTEROL 2.5MG INH SOL UD 3ML (DUONEB) NEB SCH ×3 (07:36→19:31)
[2020-02-28] MEDS: PANTOPRAZOLE 40MG TAB (PROTONIX) PO SCH (09:18)
[2020-02-28] MEDS: ATORVASTATIN 20 MG TAB PO SCH (09:18)
[2020-02-28] MEDS: ASCORBIC ACID 500 MG TAB PO SCH (09:18)
[2020-02-28] MEDS: DOCUSATE SODIUM 100 MG CAP PO SCH ×2 (09:18→20:31)
[2020-02-28] MEDS: ASPIRIN 81 MG ENTERIC TAB PO SCH (09:18)
[2020-02-28] MEDS: ZINC SULFATE 220 MG CAP PO SCH (09:18)
[2020-02-28] MEDS: LOSARTAN 50MG TABLET PO SCH (09:18)
[2020-02-28] MEDS: SPIRONOLACTONE 25 MG TAB PO SCH (09:18)
[2020-02-28] MEDS: LACTOBACILLUS ACIDOPHILUS CAP (BACID) PO SCH ×3 (09:18→20:29)
[2020-02-28] MEDS: CLOPIDOGREL 75 MG TAB PO SCH (09:18)
[2020-02-28] MEDS: HEPARIN SOD (PORCINE) 5000UNITS/ML VIAL (J1644 PER 1000UNITS) SC SCH ×2 (09:19→20:30)
[2020-02-28] MEDS: ACETAMINOPHEN 500 MG TAB PO SCH ×3 (09:19→20:30)
[2020-02-28] MEDS: REMEDY PHYTOPLEX Z-GUARD PASTE 113GM TUBE (FROM STOREROOM PRODUCT) TOP SCH ×3 (09:20→20:31)
[2020-02-28 14:00] VITALS: BP 110/56
--- NOTE | 2020-02-28 17:59 | IPNPDOC ---
Date Seen The patient was seen on 02/28/20. 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 The patient is doing okay today, but says she still has no appetite. She is trying to at least eat a little at each meal and is trying to drink her ensures. We encourage her to eat as much protein and she can for healing. On exam, the right groin incision is clean dry and intact and healing well. No drainage is noted. The incision was cleaned, dry gauze and paper tape were applied. She has a bounding pulse at the right common femoral artery. The left incision is a bit more tenuous due to a resolving mild postop hematoma in the left groin. Today, the groin is softening. There is still some bruising inferior to the incision, but this is resolving. The skin at the lateral and inferior aspect of the incision is dark and a bit tenuous, but so far the incision is still healing well with no drainage or signs of infection. There is a bounding pulse at the left common femoral artery as well. I can Doppler good flow through the profundas bilaterally and over the right to left femorofemoral bypass. Distal to this, the patient has scant flow. She has Buerger's disease with no named vessels patent at the foot and the right lower extremity. I cannot Doppler DP or PT, at the capillary refill is a little better today at 2-3 seconds instead of 4 seconds. The dorsal foot mottling and ulcera tion appears stable again today. There is no deterioration of the foot on my exam today- which is encouraging. The foot was cleaned, and dressed with a foam dressing. The left AKA stump is clean dry and intact. No significant drainage noted on the dressing. The incision was cleaned, Xeroform fluffs kerlix and a netting were placed. The patient tolerated the dressing change well. We are hoping that the patient has enough improvement in flow in the right lower extremity to maintain her leg. Unfortunately, we do not have an option for distal revascularization, and so far we have only improved her inflow to her collateral circulation. However, with severe microvascular disease from the ankle through the foot, it is unclear if she will be able to maintain the right lower extremity. We have discussed that she may require a right above-knee amputation as well, but if this is the case, we are hopeful that it can wait a few weeks to give her body a chance to acclimate to the left above-knee amputation. There are significant changes and hemodynamics after above-knee amputation, and bilateral above-knee amputations on the same day or within a few days of each other can be very challenging with regards to recovery. Therefore, we are hopeful that her foot will remain stable. There is a small chance that it will improve with time, as long as she has absolutely no new injuries or nicotine intake. 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 We will see if she has changed her mind once she is discharged from rehabilitation since she has gone this long without smoking. I have spoken with her daughters about this and they understand that we are in a [id number] pattern for the right lower extremity, but so far things are going well after the bypass in her left lower extremity amputation. We would like to continue antibiotics due to the infected nature of the left foot at the time of femorofemoral bypass with PTFE, because if the bypass gets infected, we will have to remove it which will significantly limit her left lower extremity in flow and have a significant amount of morbidity and mortali ty. We appreciate the opportunity to participate in the care of this patient. VS, I&O, 24H, Fishbone Vital Signs/I&O Vital Signs Date Time Temp Pulse Resp B/P (MAP) Pulse Ox O2 Delivery O2 Flow Rate FiO2 02/28/20 16:33 18 Room Air 02/28/20 14:00 97.1 80 110/56 (01) 97 I&O- Last 24 Hours up to 6 AM 02/28/20 06:00 Intake Total 1840 ml Output Total 6850 ml Balance -5010 ml GAVIN TOTH MD Feb 28, 2020 17:59
[2020-02-28 20:00] VITALS: BP 146/70
[2020-02-28] MEDS: SENNA 8.6 MG TAB (SENOKOT) PO SCH (20:31)
[2020-02-29 05:12] VITALS: BP 132/81
[2020-02-29] MEDS: LevoFLOXacin 500 MG TABLET PO SCH (05:49)
[2020-02-29] MEDS: IPRATROPIUM 0.5MG/ALBUTEROL 2.5MG INH SOL UD 3ML (DUONEB) NEB SCH ×3 (07:07→20:00)
[2020-02-29] MEDS: ZINC SULFATE 220 MG CAP PO SCH (08:42)
[2020-02-29] MEDS: ASPIRIN 81 MG ENTERIC TAB PO SCH (08:42)
[2020-02-29] MEDS: CLOPIDOGREL 75 MG TAB PO SCH (08:42)
[2020-02-29] MEDS: LACTOBACILLUS ACIDOPHILUS CAP (BACID) PO SCH ×3 (08:42→21:04)
[2020-02-29] MEDS: PANTOPRAZOLE 40MG TAB (PROTONIX) PO SCH (08:42)
[2020-02-29] MEDS: ASCORBIC ACID 500 MG TAB PO SCH (08:42)
[2020-02-29] MEDS: HEPARIN SOD (PORCINE) 5000UNITS/ML VIAL (J1644 PER 1000UNITS) SC SCH ×2 (08:43→21:09)
[2020-02-29] MEDS: SPIRONOLACTONE 25 MG TAB PO SCH (08:43)
[2020-02-29] MEDS: ATORVASTATIN 20 MG TAB PO SCH (08:43)
[2020-02-29] MEDS: LOSARTAN 50MG TABLET PO SCH (08:43)
[2020-02-29] MEDS: oxyCODONE 5MG TAB PO PRN ×4 (08:54→22:44)
[2020-02-29] MEDS: ACETAMINOPHEN 500 MG TAB PO SCH ×3 (08:55→20:24)
[2020-02-29] MEDS: DOCUSATE SODIUM 100 MG CAP PO SCH ×2 (08:55→20:24)
[2020-02-29] MEDS: REMEDY PHYTOPLEX Z-GUARD PASTE 113GM TUBE (FROM STOREROOM PRODUCT) TOP SCH ×3 (08:56→21:00)
[2020-02-29 12:51] LABS: BASO % 0.4 % (0.0-1.0); EOS # 0.1 10^3/uL (0.0-0.5); EOS % 0.5 % (0.0-3.0); HEMATOCRIT 31.3 % (36.0-47.0); HEMOGLOBIN 10.4 g/dl (12.0-15.5); LYMPH # 1.4 10^3/uL (1.5-5.0); LYMPH % 12.5 % (24.0-44.0); MEAN CORPUSCULAR HEMOGLOBIN 31.8 pg (27.0-33.0); MEAN CORPUSCULAR HGB CONC 33.2 g/dl (32.0-36.5); MEAN CORPUSCULAR VOLUME 95.7 fl (80.0-96.0); MONO # 0.9 10^3/uL (0.0-0.8); MONO % 7.9 % (0.0-5.0); NEUTROPHILS # 8.6 10^3/uL (1.5-8.5); NEUTROPHILS % 76.1 % (36.0-66.0); PLATELET COUNT, AUTOMATED 676 10^3/uL (150-450); RED BLOOD COUNT 3.27 10^6/uL (4.00-5.40); WHITE BLOOD COUNT 11.3 10^3/uL (4.0-10.0)
[2020-02-29 13:20] LABS: BLOOD UREA NITROGEN 10 MG/DL (7-18); C REACTIVE PROTEIN QUANTITATIV 1.72 MG/DL (0.00-0.30); CALCIUM LEVEL 8.4 MG/DL (8.8-10.2); CARBON DIOXIDE LEVEL 25 MEQ/L (21-32); CHLORIDE LEVEL 102 MEQ/L (98-107); GLOMERULAR FILTRATION RATE > 60.0 (>32); GLUCOSE, FASTING 75 MG/DL (70-100); POTASSIUM SERUM 3.7 MEQ/L (3.5-5.1); SODIUM LEVEL 138 MEQ/L (136-145)
--- NOTE | 2020-02-29 13:58 | IPNPDOC ---
Text Note Date of Service The patient was seen on 02/29/20. NOTE Vascular Surgery. Dr Carvajal. 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 The patient is up out of bed with therapy using WC. On exam, the right groin incision is clean dry and intact and healing well. No drainage is noted. The incision was cleaned, dry gauze and paper tape were applied. She has a strong pulse at the right common femoral artery. The left incision continues to be more tenuous due to a resolving mild postop hematoma in the left groin. The skin at the lateral and inferior aspect of the incision is dark and a bit tenuous, isabella are intact. There is a strong left common femoral artery pulse as well. The dorsal foot mottling and ulceration appears stable. There is no deterioration of the foot on my exam today. The foot is dressed with foam dressing. The left AKA stump is clean dry and intact. The incision was cleaned, Xeroform fluffs kerlix and a netting were placed. The patient tolerated the dressing change well. It was discussed with the patient per Dr. Carvajal that she may require a right above-knee amputation as well, but if this is the case, we are hopeful that it can wait a few weeks to give her body a chance to acclimate to the left above-knee amputation. Plan to continue to monitor the right foot. The patient continues on Levaquin by mouth D4 due to the infected nature of the left foot at the time of femorofemoral bypass with PTFE, because if the bypass gets infected, we will have to remove it which will significantly limit her left lower extremity in flow and have a significant amount of morbidity and mortality. Continue to closely monitor. VS,Fishbone, I+O VS, Fishbone, I+O Laboratory Tests 02/29/20 12:34 Vital Signs Date Time Temp Pulse Resp B/P (MAP) Pulse Ox O2 Delivery O2 Flow Rate FiO2 02/29/20 13:37 17 Room Air 02/29/20 08:43 132/81 02/29/20 05:12 97.6 83 99 I&O- Last 24 Hours up to 6 AM 02/29/20 06:00 Intake Total 1320 ml Output Total 2850 ml Balance -1530 ml Heydi Lee Feb 29, 2020 13:58
[2020-02-29 14:00] VITALS: BP 152/65
--- NOTE | 2020-02-29 14:33 | IPNPDOC ---
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 REVIEW OF SYSTEMS: The following is a completed review of systems and has been reviewed. Review of systems otherwise unremarkable. PAIN: Patient self reports left residual limb pain EYES: No recent vision changes EARS, NOSE, & THROAT: No throat pain, or dysphagia, or rhinorrhea CARDIOVASCULAR: Denies chest pain or palpitations PULMONARY: Denies shortness of breath GASTROINTESTINAL: Denies constipation/diarrhea GENITOURINARY: denies dysuria MUSCULOSKELETAL: LLE AKA NEUROLOGICAL:+paresthesias right foot HEMATOLOGICAL: +anemia SKIN: scattered ecchymosis, left residual limb incision, right foot wound PSYCHIATRIC: Unremarkable All other review of systems found to be negative. PHYSICAL EXAMINATION: VITAL SIGNS: Please see below. GENERAL: Pleasant and cooperative. No acute distress. HEENT: PERRL. Extraocular movements intact. Clear conjunctiva, tongue red wit hout any discoloration/white coating CARDIOVASCULAR: Regular rate and rhythm. No murmurs, rubs, or gallops LUNGS: Clear to auscultation bilaterally. No wheezes. No rhonchi ABDOMEN: Soft, nontender, nondistended. Positive bowel sounds. Normal active bowel sounds NEUROLOGICAL: Alert and oriented times three. Cranial nerves II through XII grossly intact. Sensation decreased to light touch RLE EXTREMITIES: 5\5 strength bilateral upper extremities. 4+\5 strength right lower extremity. 4+/5 strength in left hip flexion. SKIN: left AKA incision c/d/i no induration or drainage right midfoot with ulcers with exudate bilat groin incisions no drainage ASSESSMENT:79-year-old F with past medical history of Buerger's disease who presents status post left AKA PLAN: 1. Rehab- PT/OT advance gait and ADLs, strengthen/stretch/maintain ROM all 4limbs, desensitization therapy 2. 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 CArdiac- hx of HTN c/u losartan and spironolactone- medicine consulted to assist in management -CAD on ASA -HLD c/u statin 4. resp- smoker, c/u DUonebs and monitor for infection 4. ID- c/u levaquin for LLE wound healing, monitor CRPs and leukocytosis 5. Heme- post op anemia, consider transfusion if Hgb <8 6. DVT ppx- heparin 7. GI ppx- protonix 8. Pain- tylenol, oxycodone prn -tongue pain without signs of thrush, will trial lidocaine viscous rinse 9. - patient with retention over the weekend, will remove Whitmore that was placed, restart bladder scans and check UA/Ucx 9. Disop- TBD Allergies Coded Allergies: ciprofloxacin (Verified Adverse Reaction, Intermediate, gives pt c-diff, 02/12/20) Vital Signs Vital Signs Date Time Temp Pulse Resp B/P (MAP) Pulse Ox O2 Delivery O2 Flow Rate FiO2 02/29/20 14:21 17 Room Air 02/29/20 14:00 97.7 76 152/65 (94) 99 Laboratory Data CBC/BMP Laboratory Tests 02/29/20 12:34 Labs 24H Laboratory Tests 2 02/29/20 12:34: Immature Granulocyte % (Auto) 2.6, Neutrophils (%) (Auto) 76.1H, Lymphocytes (%) (Auto) 12.5L, Monocytes (%) (Auto) 7.9H, Eosinophils (%) (Auto) 0.5, Basophils (%) (Auto) 0.4, Neutrophils # (Auto) 8.6H, Lymphocytes # (Auto) 1.4L, Monocytes # (Auto) 0.9H, Eosinophils # (Auto) 0.1, Basophils # (Auto) 0.0, Nucleated Red Blood Cells % (auto) 0.0, Anion Gap 11, Glomerular Filtration Rate > 60.0, Calcium Level 8.4L, C-Reactive Protein, Quantitative 1.72H Current Medications Current Medications Current Medications Medications (Trade) Dose Ordered Sig/Riya Route PRN Reason Start Time Stop Time Status Last Admin Dose Admin Acetaminophen (Tylenol Tab) 1,000 mg TID PO 02/25/20 16:00 02/28/20 20:30 Albuterol/ Ipratropium (Duoneb (Ipr 0.5mg/Alb 2.5mg)) 3 ml RTID NEB 02/25/20 20:00 02/29/20 14:10 Ascorbic Acid (Vitamin C) 500 mg DAILY PO 02/26/20 09:00 02/29/20 08:42 Aspirin (Ecotrin) 81 mg DAILY PO 02/26/20 09:00 02/29/20 08:42 Atorvastatin Calcium (Lipitor) 40 mg DAILY PO 02/27/20 09:00 02/29/20 08:43 Bisacodyl (Dulcolax Suppository) 10 mg DAILYPRN PRN [place] CONSTIPATION 02/25/20 13:00 Bisacodyl (Dulcolax Tab) 5 mg DAILYPRN PRN PO CONSTIPATION 02/25/20 13:00 Clopidogrel Bisulfate (PLAVix) 75 mg DAILY PO 02/26/20 09:00 02/29/20 08:42 Docusate Sodium (Colace) 100 mg BID PO 02/25/20 21:00 02/28/20 09:18 Heparin Sodium (Porcine) (Heparin) 5,000 units Q12H SC 02/25/20 21:00 02/29/20 08:43 Lactobacillus Acidophilus (Bacid) 1 ea TID PO 02/25/20 16:00 02/29/20 08:42 Levofloxacin (Levaquin) 500 mg DAILY@06 PO 02/26/20 06:00 02/29/20 05:49 Losartan Potassium (Cozaar) 50 mg DAILY PO 02/26/20 09:00 02/29/20 08:43 Oxycodone HCl (Roxicodone, Oxyir) 5 mg Q4HP PRN PO PAIN 02/25/20 13:00 02/29/20 13:37 Pantoprazole Sodium (Protonix) 40 mg DAILY PO 02/26/20 09:00 02/29/20 08:42 Pravastatin Sodium (Pravachol) 20 mg DAILY PO 02/26/20 09:00 02/26/20 12:03 DC 02/26/20 08:07 Senna (Senokot) 1 tab QHS PO 02/25/20 21:00 02/27/20 20:17 Spironolactone (Aldactone) 25 mg QAM PO 02/26/20 09:00 02/29/20 08:43 Zinc Sulfate (Zinc Sulfate) 220 mg DAILY PO 02/26/20 09:00 02/29/20 08:42 NAOMI CHAPA MD Feb 29, 2020 14:33
[2020-02-29] MEDS: LIDOCAINE VISCOUS 2% SOLN 15ML UDC SSP SCH ×2 (16:38→21:05)
[2020-02-29 20:00] VITALS: BP 111/56
[2020-02-29] MEDS: SENNA 8.6 MG TAB (SENOKOT) PO SCH (20:24)
[2020-03-01] MEDS: oxyCODONE 5MG TAB PO PRN ×4 (03:48→21:46)
[2020-03-01 06:04] VITALS: BP 140/70
[2020-03-01] MEDS: LevoFLOXacin 500 MG TABLET PO SCH (06:11)
[2020-03-01] MEDS: IPRATROPIUM 0.5MG/ALBUTEROL 2.5MG INH SOL UD 3ML (DUONEB) NEB SCH ×3 (08:00→19:54)
[2020-03-01] MEDS: LIDOCAINE VISCOUS 2% SOLN 15ML UDC SSP SCH ×3 (08:36→21:45)
[2020-03-01] MEDS: HEPARIN SOD (PORCINE) 5000UNITS/ML VIAL (J1644 PER 1000UNITS) SC SCH ×2 (08:37→21:46)
[2020-03-01] MEDS: ASPIRIN 81 MG ENTERIC TAB PO SCH (08:37)
[2020-03-01] MEDS: LOSARTAN 50MG TABLET PO SCH (08:39)
[2020-03-01] MEDS: ASCORBIC ACID 500 MG TAB PO SCH (08:39)
[2020-03-01] MEDS: DOCUSATE SODIUM 100 MG CAP PO SCH ×2 (08:39→21:00)
[2020-03-01] MEDS: CLOPIDOGREL 75 MG TAB PO SCH (08:39)
[2020-03-01] MEDS: ATORVASTATIN 20 MG TAB PO SCH (08:39)
[2020-03-01] MEDS: ACETAMINOPHEN 500 MG TAB PO SCH ×3 (08:39→21:00)
[2020-03-01] MEDS: REMEDY PHYTOPLEX Z-GUARD PASTE 113GM TUBE (FROM STOREROOM PRODUCT) TOP SCH ×3 (08:39→21:47)
[2020-03-01] MEDS: LACTOBACILLUS ACIDOPHILUS CAP (BACID) PO SCH ×3 (08:39→21:46)
[2020-03-01] MEDS: PANTOPRAZOLE 40MG TAB (PROTONIX) PO SCH (08:39)
[2020-03-01] MEDS: ZINC SULFATE 220 MG CAP PO SCH (08:54)
[2020-03-01] MEDS: SPIRONOLACTONE 25 MG TAB PO SCH (08:54)
--- NOTE | 2020-03-01 09:06 | IPNPDOC ---
Text Note Date of Service The patient was seen on 03/01/20. NOTE Vascular Surgery. Dr Carvajal. 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 On exam, the right groin incision is clean dry and intact and healing well. No drainage is noted. The incision was cleaned, dry gauze and paper tape were applied. Palpable pulse over the right HOOP PUNCHER. The left groin incision continues to be more tenuous due to a resolving mild postop hematoma in the left groin. The skin at the lateral and inferior aspect of the incision is dark, isabella are intact. Palpable pulse over left HOOP PUNCHER. I am able to obtain doppler signal over the bypass as well. The right dorsal foot mottling and ulceration appears stable. There is no deterioration of the foot on my exam today. I am able to obtain doppler signal over the Rt DP, unable to obtain PT. The foot is dressed with foam dressing. The left AKA stump is clean dry and intact. The incision was cleaned, Xeroform fluffs kerlix and a netting were placed. The patient tolerated the dressing change well. It was discussed with the patient per Dr. Carvajal previously, that she may require a right above-knee amputation as well. If this is the case, we are hopeful that it can wait a few weeks to give her body a chance to acclimate to the left above-knee amputation. Plan to continue to monitor the right foot. The patient continues on Levaquin by mouth D5 due to the infected nature of the left foot at the time of femorofemoral bypass with PTFE, because if the bypass gets infected, we will have to remove it which will significantly limit her left lower extremity in flow and have a significant amount of morbidity and mortality. Lipitor/ASA/Plavix. Continue to closely monitor. VS,Fishbone, I+O VS, Fishbone, I+O Laboratory Tests 02/29/20 12:34 Vital Signs Date Time Temp Pulse Resp B/P (MAP) Pulse Ox O2 Delivery O2 Flow Rate FiO2 03/01/20 08:47 17 Room Air 03/01/20 08:39 140/70 03/01/20 06:04 97.0 73 96 I&O- Last 24 Hours up to 6 AM 03/01/20 06:00 Intake Total 1510 ml Output Total 500 ml Balance 1010 ml Heydi Lee Mar 01, 2020 09:06
[2020-03-01 14:00] VITALS: BP 126/58
[2020-03-01] MEDS: TERAZOSIN 1 MG CAP PO SCH (17:46)
[2020-03-01 20:36] VITALS: BP 106/52
[2020-03-01] MEDS ORDERED: TAMSULOSIN 0.4 MG CAP PO SCH (21:00)
[2020-03-01] MEDS: SENNA 8.6 MG TAB (SENOKOT) PO SCH (21:00)
[2020-03-02] MEDS: oxyCODONE 5MG TAB PO PRN ×3 (02:57→21:59)
[2020-03-02 05:58] VITALS: BP 137/64
[2020-03-02] MEDS: LevoFLOXacin 500 MG TABLET PO SCH (06:27)
[2020-03-02] MEDS: IPRATROPIUM 0.5MG/ALBUTEROL 2.5MG INH SOL UD 3ML (DUONEB) NEB SCH ×3 (07:27→20:00)
[2020-03-02 08:00] LABS: BASO % 0.3 % (0.0-1.0); EOS # 0.2 10^3/uL (0.0-0.5); EOS % 2.2 % (0.0-3.0); HEMATOCRIT 28.7 % (36.0-47.0); HEMOGLOBIN 9.4 g/dl (12.0-15.5); LYMPH # 1.6 10^3/uL (1.5-5.0); LYMPH % 17.6 % (24.0-44.0); MEAN CORPUSCULAR HEMOGLOBIN 31.4 pg (27.0-33.0); MEAN CORPUSCULAR HGB CONC 32.8 g/dl (32.0-36.5); MONO # 0.8 10^3/uL (0.0-0.8); MONO % 8.9 % (0.0-5.0); NEUTROPHILS # 6.2 10^3/uL (1.5-8.5); PLATELET COUNT, AUTOMATED 601 10^3/uL (150-450); RED BLOOD COUNT 2.99 10^6/uL (4.00-5.40); WHITE BLOOD COUNT 8.9 10^3/uL (4.0-10.0)
[2020-03-02 08:16] LABS: BLOOD UREA NITROGEN 10 MG/DL (7-18); C REACTIVE PROTEIN QUANTITATIV 1.63 MG/DL (0.00-0.30); CALCIUM LEVEL 8.6 MG/DL (8.8-10.2); CARBON DIOXIDE LEVEL 28 MEQ/L (21-32); CHLORIDE LEVEL 106 MEQ/L (98-107); CREATININE FOR GFR 0.53 MG/DL (0.55-1.30); GLOMERULAR FILTRATION RATE > 60.0 (>32); GLUCOSE, FASTING 92 MG/DL (70-100); SODIUM LEVEL 140 MEQ/L (136-145)
[2020-03-02] MEDS: ZINC SULFATE 220 MG CAP PO SCH (09:00)
[2020-03-02] MEDS: ACETAMINOPHEN 500 MG TAB PO SCH ×4 (09:00→21:00)
[2020-03-02] MEDS: DOCUSATE SODIUM 100 MG CAP PO SCH ×2 (09:00→21:00)
[2020-03-02] MEDS: LIDOCAINE VISCOUS 2% SOLN 15ML UDC SSP SCH ×3 (10:23→21:00)
[2020-03-02] MEDS: TERAZOSIN 1 MG CAP PO SCH (10:23)
[2020-03-02] MEDS: ASCORBIC ACID 500 MG TAB PO SCH (10:24)
[2020-03-02] MEDS: HEPARIN SOD (PORCINE) 5000UNITS/ML VIAL (J1644 PER 1000UNITS) SC SCH ×2 (10:24→21:57)
[2020-03-02] MEDS: LACTOBACILLUS ACIDOPHILUS CAP (BACID) PO SCH ×3 (10:25→21:57)
[2020-03-02] MEDS: PANTOPRAZOLE 40MG TAB (PROTONIX) PO SCH (10:25)
[2020-03-02] MEDS: CLOPIDOGREL 75 MG TAB PO SCH (10:25)
[2020-03-02] MEDS: ASPIRIN 81 MG ENTERIC TAB PO SCH (10:25)
[2020-03-02] MEDS: LOSARTAN 50MG TABLET PO SCH (10:26)
[2020-03-02] MEDS: SPIRONOLACTONE 25 MG TAB PO SCH (10:26)
[2020-03-02] MEDS: ATORVASTATIN 20 MG TAB PO SCH (10:27)
[2020-03-02] MEDS: REMEDY PHYTOPLEX Z-GUARD PASTE 113GM TUBE (FROM STOREROOM PRODUCT) TOP SCH ×3 (10:31→21:58)
--- NOTE | 2020-03-02 11:42 | IPNPDOC ---
PM&R Progress Note DATE OF SERVICE: Mar 01, 2020 Diabetes Nurse Progress Note Subjective Patient reporting she is still retaining urine and needs to be catheterized. REVIEW OF SYSTEMS: The following is a completed review of systems and has been reviewed. Review of systems otherwise unremarkable. PAIN: Patient self reports left residual limb pain EYES: No recent vision changes EARS, NOSE, & THROAT: No throat pain, or dysphagia, or rhinorrhea CARDIOVASCULAR: Denies chest pain or palpitations PULMONARY: Denies shortness of breath GASTROINTESTINAL: Denies constipation/diarrhea GENITOURINARY: denies dysuria, +retention MUSCULOSKELETAL: LLE AKA NEUROLOGICAL:+paresthesias right foot HEMATOLOGICAL: +anemia SKIN: scattered ecchymosis, left residual limb incision, right foot wound PSYCHIATRIC: Unremarkable All other review of systems found to be negative. PHYSICAL EXAMINATION: VITAL SIGNS: Please see below. GENERAL: Pleasant and cooperative. No acute distress. HEENT: PERRL. Extraocular movements intact. Clear conjunctiva, tongue red without any discoloration/white coating CARDIOVASCULAR: Regular rate and rhythm. No murmurs, rubs, or gallops LUNGS: Clear to auscultation bilaterally. No wheezes. No rhonchi ABDOMEN: Soft, nontender, nondistended. Positive bowel sounds. Normal active bowel sounds NEUROLOGICAL: Alert and oriented times three. Cranial nerves II through XII grossly intact. Sensation decreased to light touch RLE EXTREMITIES: 5\5 strength bilateral upper extremities. 4+\5 strength right lower extremity. 4+/5 strength in left hip flexion. SKIN: left AKA incision c/d/i no induration or drainage right midfoot with ulcers with exudate bilat groin incisions no drainage ASSESSMENT:79-year-old F with past medical history of Buerger's disease who presents status post left AKA PLAN: 1. Rehab- PT/OT advance gait and ADLs, strengthen/stretch/maintain ROM all 4limbs, desensitization therapy 2. 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 CArdiac- hx of HTN c/u losartan and spironolactone- medicine consulted to assist in management -CAD on ASA -HLD c/u statin 4. resp- smoker, c/u DUonebs and monitor for infection 4. ID- c/u levaquin for LLE wound healing, monitor CRPs and leukocytosis 5. Heme- post op anemia, consider transfusion if Hgb <8 6. DVT ppx- heparin 7. GI ppx- protonix 8. Pain- tylenol, oxycodone prn -tongue pain without signs of thrush, improving, c/u lidocaine viscous rinse 9. - patient with retention over the weekend, removed Whitmore, UA negative, will start Terazosin as patient reports she had flushing when she took flomax years ago for kidney stone 9. Dispo- 03-11-20 to home, progressing towards goals Allergies Coded Allergies: ciprofloxacin (Verified Adverse Reaction, Intermediate, gives pt c-diff, 02/12/20) Vital Signs Vital Signs Date Time Temp Pulse Resp B/P (MAP) Pulse Ox O2 Delivery O2 Flow Rate FiO2 03/02/20 10:26 137/64 03/02/20 05:58 98.0 76 18 97 Room Air Laboratory Data CBC/BMP Laboratory Tests 03/02/20 07:37 Labs 24H Laboratory Tests 2 03/02/20 07:37: Immature Granulocyte % (Auto) 2.0, Neutrophils (%) (Auto) 69.0H, Lymphocytes (%) (Auto) 17.6L, Monocytes (%) (Auto) 8.9H, Eosinophils (%) (Auto) 2.2, Basophils (%) (Auto) 0.3, Neutrophils # (Auto) 6.2, Lymphocytes # (Auto) 1.6, Monocytes # (Auto) 0.8, Eosinophils # (Auto) 0.2, Basophils # (Auto) 0.0, Nucleated Red Blood Cells % (auto) 0.0, Anion Gap 6L, Glomerular Filtration Rate > 60.0, Calcium Level 8.6L, C-Reactive Protein, Quantitative 1.63H Current Medications Current Medications Current Medications Medications (Trade) Dose Ordered Sig/Riya Route PRN Reason Start Time Stop Time Status Last Admin Dose Admin Acetaminophen (Tylenol Tab) 1,000 mg TID PO 02/25/20 16:00 02/28/20 20:30 Albuterol/ Ipratropium (Duoneb (Ipr 0.5mg/Alb 2.5mg)) 3 ml RTID NEB 02/25/20 20:00 03/02/20 07:27 Ascorbic Acid (Vitamin C) 500 mg DAILY PO 02/26/20 09:00 03/02/20 10:24 Aspirin (Ecotrin) 81 mg DAILY PO 02/26/20 09:00 03/02/20 10:25 Atorvastatin Calcium (Lipitor) 40 mg DAILY PO 02/27/20 09:00 03/02/20 10:27 Bisacodyl (Dulcolax Suppository) 10 mg DAILYPRN PRN [place] CONSTIPATION 02/25/20 13:00 Bisacodyl (Dulcolax Tab) 5 mg DAILYPRN PRN PO CONSTIPATION 02/25/20 13:00 Clopidogrel Bisulfate (PLAVix) 75 mg DAILY PO 02/26/20 09:00 03/02/20 10:25 Docusate Sodium (Colace) 100 mg BID PO 02/25/20 21:00 02/28/20 09:18 Heparin Sodium (Porcine) (Heparin) 5,000 units Q12H SC 02/25/20 21:00 03/02/20 10:24 Lactobacillus Acidophilus (Bacid) 1 ea TID PO 02/25/20 16:00 03/02/20 10:25 Levofloxacin (Levaquin) 500 mg DAILY@06 PO 02/26/20 06:00 03/02/20 06:27 Lidocaine HCl (Lidocaine 2% Visc Soln) 5 ml TID SSP 02/29/20 16:00 03/02/20 10:23 Losartan Potassium (Cozaar) 50 mg DAILY PO 02/26/20 09:00 03/02/20 10:26 Oxycodone HCl (Roxicodone, Oxyir) 5 mg Q4HP PRN PO PAIN 02/25/20 13:00 03/02/20 02:57 Pantoprazole Sodium (Protonix) 40 mg DAILY PO 02/26/20 09:00 03/02/20 10:25 Pravastatin Sodium (Pravachol) 20 mg DAILY PO 02/26/20 09:00 02/26/20 12:03 DC 02/26/20 08:07 Senna (Senokot) 1 tab QHS PO 02/25/20 21:00 02/27/20 20:17 Spironolactone (Aldactone) 25 mg QAM PO 02/26/20 09:00 03/02/20 10:26 Tamsulosin HCl (Flomax) 0.4 mg QHS PO 03/01/20 21:00 03/01/20 16:28 DC Terazosin HCl (Hytrin) 2 mg DAILY PO 03/01/20 16:30 03/02/20 10:23 Zinc Sulfate (Zinc Sulfate) 220 mg DAILY PO 02/26/20 09:00 02/29/20 08:42 NAOMI CHAPA MD Mar 02, 2020 11:42
--- NOTE | 2020-03-02 11:43 | IPNPDOC ---
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 She is requesting to soak her right foot since her toenails feels dry. REVIEW OF SYSTEMS: The following is a completed review of systems and has been reviewed. Review of systems otherwise unremarkable. PAIN: Patient self reports left residual limb pain EYES: No recent vision changes EARS, NOSE, & THROAT: No throat pain, or dysphagia, or rhinorrhea CARDIOVASCULAR: Denies chest pain or palpitations PULMONARY: Denies shortness of breath GASTROINTESTINAL: Denies constipation/diarrhea GENITOURINARY: denies dysuria, +retention (improving) MUSCULOSKELETAL: LLE AKA NEUROLOGICAL:+paresthesias right foot HEMATOLOGICAL: +anemia SKIN: scattered ecchymosis, left residual limb incision, right foot wound PSYCHIATRIC: Unremarkable All other review of systems found to be negative. PHYSICAL EXAMINATION: VITAL SIGNS: Please see below. GENERAL: Pleasant and cooperative. No acute distress. HEENT: PERRL. Extraocular movements intact. Clear conjunctiva, tongue red without any discoloration/white coating CARDIOVASCULAR: Regular rate and rhythm. No murmurs, rubs, or gallops LUNGS: Clear to auscultation bilaterally. No wheezes. No rhonchi ABDOMEN: Soft, nontender, nondistended. Positive bowel sounds. Normal active bowel sounds NEUROLOGICAL: Alert and oriented times three. Cranial nerves II through XII grossly intact. Sensation decreased to light touch RLE EXTREMITIES: 5\5 strength bilateral upper extremities. 4+\5 strength right lower extremity. 4+/5 strength in left hip flexion. SKIN: left AKA incision c/d/i no induration or drainage right midfoot with ulcers with exudate bilat groin incisions no drainage ASSESSMENT:79-year-old F with past medical history of Buerger's disease who presents status post left AKA PLAN: 1. Rehab- PT/OT advance gait and ADLs, strengthen/stretch/maintain ROM all 4limbs, desensitization therapy 2. 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 CArdiac- hx of HTN c/u losartan and spironolactone- medicine consulted to assist in management -CAD on ASA -HLD c/u statin 4. resp- smoker, c/u DUonebs and monitor for infection 4. ID- c/u levaquin for LLE wound healing, monitor CRPs and leukocytosis 5. Heme- post op anemia, consider transfusion if Hgb <8 6. DVT ppx- heparin 7. GI ppx- protonix 8. Pain- tylenol, oxycodone prn -tongue pain without signs of thrush, improving, c/u lidocaine viscous rinse 9. - patient with retention over the weekend, removed Whitmore, UA negative, c/u Terazosin 10. Skin- per instructions 11. Dispo- 03-11-20 to home, progressing towards goals Allergies Coded Allergies: ciprofloxacin (Verified Adverse Reaction, Intermediate, gives pt c-diff, 02/12/20) Vital Signs Vital Signs Date Time Temp Pulse Resp B/P (MAP) Pulse Ox O2 Delivery O2 Flow Rate FiO2 03/02/20 10:26 137/64 03/02/20 05:58 98.0 76 18 97 Room Air Laboratory Data CBC/BMP Laboratory Tests 03/02/20 07:37 Labs 24H Laboratory Tests 2 03/02/20 07:37: Immature Granulocyte % (Auto) 2.0, Neutrophils (%) (Auto) 69.0H, Lymphocytes (%) (Auto) 17.6L, Monocytes (%) (Auto) 8.9H, Eosinophils (%) (Auto) 2.2, Basophils (%) (Auto) 0.3, Neutrophils # (Auto) 6.2, Lymphocytes # (Auto) 1.6, Monocytes # (Auto) 0.8, Eosinophils # (Auto) 0.2, Basophils # (Auto) 0.0, Nucleated Red Blood Cells % (auto) 0.0, Anion Gap 6L, Glomerular Filtration Rate > 60.0, Calcium Level 8.6L, C-Reactive Protein, Quantitative 1.63H Current Medications Current Medications Current Medications Medications (Trade) Dose Ordered Sig/Riya Route PRN Reason Start Time Stop Time Status Last Admin Dose Admin Acetaminophen (Tylenol Tab) 1,000 mg TID PO 02/25/20 16:00 02/28/20 20:30 Albuterol/ Ipratropium (Duoneb (Ipr 0.5mg/Alb 2.5mg)) 3 ml RTID NEB 02/25/20 20:00 03/02/20 07:27 Ascorbic Acid (Vitamin C) 500 mg DAILY PO 02/26/20 09:00 03/02/20 10:24 Aspirin (Ecotrin) 81 mg DAILY PO 02/26/20 09:00 03/02/20 10:25 Atorvastatin Calcium (Lipitor) 40 mg DAILY PO 02/27/20 09:00 03/02/20 10:27 Bisacodyl (Dulcolax Suppository) 10 mg DAILYPRN PRN [place] CONSTIPATION 02/25/20 13:00 Bisacodyl (Dulcolax Tab) 5 mg DAILYPRN PRN PO CONSTIPATION 02/25/20 13:00 Clopidogrel Bisulfate (PLAVix) 75 mg DAILY PO 02/26/20 09:00 03/02/20 10:25 Docusate Sodium (Colace) 100 mg BID PO 02/25/20 21:00 02/28/20 09:18 Heparin Sodium (Porcine) (Heparin) 5,000 units Q12H SC 02/25/20 21:00 03/02/20 10:24 Lactobacillus Acidophilus (Bacid) 1 ea TID PO 02/25/20 16:00 03/02/20 10:25 Levofloxacin (Levaquin) 500 mg DAILY@06 PO 02/26/20 06:00 03/02/20 06:27 Lidocaine HCl (Lidocaine 2% Visc Soln) 5 ml TID SSP 02/29/20 16:00 03/02/20 10:23 Losartan Potassium (Cozaar) 50 mg DAILY PO 02/26/20 09:00 03/02/20 10:26 Oxycodone HCl (Roxicodone, Oxyir) 5 mg Q4HP PRN PO PAIN 02/25/20 13:00 03/02/20 02:57 Pantoprazole Sodium (Protonix) 40 mg DAILY PO 02/26/20 09:00 03/02/20 10:25 Pravastatin Sodium (Pravachol) 20 mg DAILY PO 02/26/20 09:00 02/26/20 12:03 DC 02/26/20 08:07 Senna (Senokot) 1 tab QHS PO 02/25/20 21:00 02/27/20 20:17 Spironolactone (Aldactone) 25 mg QAM PO 02/26/20 09:00 03/02/20 10:26 Tamsulosin HCl (Flomax) 0.4 mg QHS PO 03/01/20 21:00 03/01/20 16:28 DC Terazosin HCl (Hytrin) 2 mg DAILY PO 03/01/20 16:30 03/02/20 10:23 Zinc Sulfate (Zinc Sulfate) 220 mg DAILY PO 02/26/20 09:00 02/29/20 08:42 NAOMI CHAPA MD Mar 02, 2020 11:43
--- NOTE | 2020-03-02 12:43 | IPNPDOC ---
Text Note Date of Service The patient was seen on 03/02/20. NOTE Vascular Surgery. Dr Carvajal. 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 On exam, the right groin incision is clean dry and intact and healing well. No drainage is noted. The incision was cleaned, dry gauze and paper tape were applied. Palpable pulse over the right PHARMACY GENERAL MANAGER. The left groin incision still continues to be more tenuous due to a resolving mild postop hematoma in the left groin. The skin at the lateral and inferior aspect of the incision is dark, isabella are intact. Palpable pulse over left PHARMACY GENERAL MANAGER. I am able to obtain doppler signal over the bypass this AM. The right dorsal foot mottling and ulceration appears slightly improved. There is no deterioration of the foot at this time. I am able to obtain doppler signal over the Rt DP, unable to obtain PT. The foot is dressed with foam dressing. The left AKA stump is clean dry and intact. The incision was cleaned, Xeroform fluffs kerlix and a netting were placed. The patient tolerated the dressing change well. It was discussed with the patient per Dr. Carvajal previously, that she may require a right above-knee amputation as well. If this is the case, we are hopeful that it can wait a few weeks to give her body a chance to acclimate to the left above-knee amputation. Plan to continue to closely monitor the right foot. I have again discussed with the patient that it is possible that the right foot does appear improved as she has been off tobacco products in nicotine since her admission and have discussed with her that her foot will deteriorate again if she resumes smoking after discharge. The patient continues on Levaquin by mouth D6 due to the infected nature of the left foot at the time of femorofemoral bypass with PTFE, because if the bypass gets infected, we will have to remove it which will significantly limit her left lower extremity in flow and have a significant amount of morbidity and mortality. Lipitor/ASA/Plavix. Continue to closely monitor. VS,Fishbone, I+O VS, Fishbone, I+O Laboratory Tests 03/02/20 07:37 Vital Signs Date Time Temp Pulse Resp B/P (MAP) Pulse Ox O2 Delivery O2 Flow Rate FiO2 03/02/20 10:26 137/64 03/02/20 05:58 98.0 76 18 97 Room Air I&O- Last 24 Hours up to 6 AM 03/02/20 06:00 Intake Total 1000 ml Output Total 900 ml Balance 100 ml Heydi Lee Mar 02, 2020 12:43
[2020-03-02 14:00] VITALS: BP 108/51
[2020-03-02 20:30] VITALS: BP 122/60
[2020-03-02] MEDS: SENNA 8.6 MG TAB (SENOKOT) PO SCH (21:00)
[2020-03-02] MEDS: MAGNESIUM SULFATE GRANULES(EPSOM SALT) 1LB TOP SCH (22:30)
[2020-03-03] MEDS: oxyCODONE 5MG TAB PO PRN ×4 (02:20→22:04)
[2020-03-03] MEDS: LevoFLOXacin 500 MG TABLET PO SCH (05:04)
[2020-03-03 06:15] VITALS: BP 114/56
[2020-03-03] MEDS: IPRATROPIUM 0.5MG/ALBUTEROL 2.5MG INH SOL UD 3ML (DUONEB) NEB SCH ×3 (07:42→19:24)
[2020-03-03] MEDS: ACETAMINOPHEN 500 MG TAB PO SCH ×4 (09:00→20:54)
[2020-03-03] MEDS: DOCUSATE SODIUM 100 MG CAP PO SCH ×2 (09:00→20:54)
--- NOTE | 2020-03-03 09:01 | IPNPDOC ---
Text Note Date of Service The patient was seen on 03/03/20. NOTE Vascular Surgery. Dr Carvajal. 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 On exam, the right groin incision is clean dry and intact and healing well. No drainage is noted. [place] intact. The incision was cleaned, dry gauze and paper tape were applied. Palpable pulse over the right AVIONICS INTEGRATION ENGINEER. The left groin incision still continues to be more tenuous due to a resolving mild postop hematoma in the left groin. The skin at the lateral and inferior aspect of the incision is dark but appears stable, minimal drainage on the dressing, isabella are intact. Palpable pulse over left AVIONICS INTEGRATION ENGINEER and I am able to obtain doppler signal over the bypass. The right dorsal foot mottling and ulceration continues to slowly improve. There is no deterioration of the foot at this time. I am able to obtain doppler signal over the Rt DP, unable to obtain PT. The foot is cleaned and dressed with foam dressing. The left AKA stump is clean dry and intact. The incision was cleaned, Xeroform fluffs kerlix and a netting were placed. The patient tolerated the dressing change well. It was discussed with the patient per Dr. Carvajal previously, that she may require a right above-knee amputation as well. If this is the case, we are hopeful that it can wait a few weeks to give her body a chance to acclimate to the left above-knee amputation. Plan to continue to closely monitor the right foot. I have again discussed with the patient that it is possible that the right foot does appear improved as she has been off tobacco products and nicotine since her admission. I have discussed with her that her foot is certain to deteriorate again if she resumes smoking after discharge. The patient continues on Levaquin po D7 due to the infected nature of the left foot at the time of femorofemoral bypass with PTFE, because if the bypass gets infected, we will have to remove it which will significantly limit her left lower extremity in flow and have a significant amount of morbidity and mortality. Lipitor/ASA/Plavix. Continue to closely monitor. VS,Fishbone, I+O VS, Fishbone, I+O Vital Signs Date Time Temp Pulse Resp B/P (MAP) Pulse Ox O2 Delivery O2 Flow Rate FiO2 03/03/20 06:15 98.6 63 18 114/56 (75) 96 Room Air I&O- Last 24 Hours up to 6 AM 03/03/20 06:00 Intake Total 830 ml Output Total 250 ml Balance 580 ml Heydi Lee Mar 03, 2020 09:01
[2020-03-03] MEDS: TERAZOSIN 1 MG CAP PO SCH (09:13)
[2020-03-03] MEDS: SPIRONOLACTONE 25 MG TAB PO SCH (09:13)
[2020-03-03] MEDS: ZINC SULFATE 220 MG CAP PO SCH (09:14)
[2020-03-03] MEDS: ASPIRIN 81 MG ENTERIC TAB PO SCH (09:14)
[2020-03-03] MEDS: LOSARTAN 50MG TABLET PO SCH (09:14)
[2020-03-03] MEDS: ATORVASTATIN 20 MG TAB PO SCH (09:14)
[2020-03-03] MEDS: CLOPIDOGREL 75 MG TAB PO SCH (09:14)
[2020-03-03] MEDS: LIDOCAINE VISCOUS 2% SOLN 15ML UDC SSP SCH ×3 (09:14→20:53)
[2020-03-03] MEDS: LACTOBACILLUS ACIDOPHILUS CAP (BACID) PO SCH ×3 (09:14→20:53)
[2020-03-03] MEDS: PANTOPRAZOLE 40MG TAB (PROTONIX) PO SCH (09:14)
[2020-03-03] MEDS: ASCORBIC ACID 500 MG TAB PO SCH (09:14)
[2020-03-03] MEDS: HEPARIN SOD (PORCINE) 5000UNITS/ML VIAL (J1644 PER 1000UNITS) SC SCH ×2 (09:14→20:53)
[2020-03-03] MEDS: REMEDY PHYTOPLEX Z-GUARD PASTE 113GM TUBE (FROM STOREROOM PRODUCT) TOP SCH ×3 (09:15→20:54)
[2020-03-03 14:00] VITALS: BP 89/52
[2020-03-03 20:15] VITALS: BP 141/63
[2020-03-03] MEDS: SENNA 8.6 MG TAB (SENOKOT) PO SCH (20:54)
[2020-03-03] MEDS: MAGNESIUM SULFATE GRANULES(EPSOM SALT) 1LB TOP SCH (22:04)
[2020-03-04] MEDS: oxyCODONE 5MG TAB PO PRN ×4 (02:11→21:05)
[2020-03-04] MEDS: LevoFLOXacin 500 MG TABLET PO SCH (05:29)
[2020-03-04 06:00] VITALS: BP 130/63
[2020-03-04 07:09] LABS: BASO # 0.1 10^3/uL (0.0-0.2); BASO % 0.7 % (0.0-1.0); EOS # 0.2 10^3/uL (0.0-0.5); EOS % 2.6 % (0.0-3.0); HEMATOCRIT 27.3 % (36.0-47.0); HEMOGLOBIN 8.8 g/dl (12.0-15.5); LYMPH # 1.4 10^3/uL (1.5-5.0); LYMPH % 18.5 % (24.0-44.0); MEAN CORPUSCULAR HEMOGLOBIN 31.7 pg (27.0-33.0); MEAN CORPUSCULAR HGB CONC 32.2 g/dl (32.0-36.5); MEAN CORPUSCULAR VOLUME 98.2 fl (80.0-96.0); MONO # 0.7 10^3/uL (0.0-0.8); MONO % 8.5 % (0.0-5.0); NEUTROPHILS # 5.2 10^3/uL (1.5-8.5); PLATELET COUNT, AUTOMATED 556 10^3/uL (150-450); RED BLOOD COUNT 2.78 10^6/uL (4.00-5.40); WHITE BLOOD COUNT 7.7 10^3/uL (4.0-10.0)
[2020-03-04 07:29] LABS: BLOOD UREA NITROGEN 9 MG/DL (7-18); CALCIUM LEVEL 8.2 MG/DL (8.8-10.2); CARBON DIOXIDE LEVEL 28 MEQ/L (21-32); CHLORIDE LEVEL 107 MEQ/L (98-107); CREATININE FOR GFR 0.53 MG/DL (0.55-1.30); GLOMERULAR FILTRATION RATE > 60.0 (>32); GLUCOSE, FASTING 83 MG/DL (70-100); POTASSIUM SERUM 3.9 MEQ/L (3.5-5.1); SODIUM LEVEL 141 MEQ/L (136-145)
[2020-03-04] MEDS: IPRATROPIUM 0.5MG/ALBUTEROL 2.5MG INH SOL UD 3ML (DUONEB) NEB SCH ×3 (07:45→20:00)
[2020-03-04] MEDS: CLOPIDOGREL 75 MG TAB PO SCH (08:31)
[2020-03-04] MEDS: ATORVASTATIN 20 MG TAB PO SCH (08:31)
[2020-03-04] MEDS: PANTOPRAZOLE 40MG TAB (PROTONIX) PO SCH (08:31)
[2020-03-04] MEDS: LIDOCAINE VISCOUS 2% SOLN 15ML UDC SSP SCH ×3 (08:31→21:00)
[2020-03-04] MEDS: TERAZOSIN 1 MG CAP PO SCH (08:32)
[2020-03-04] MEDS: ASCORBIC ACID 500 MG TAB PO SCH (08:32)
[2020-03-04] MEDS: LOSARTAN 50MG TABLET PO SCH (08:32)
[2020-03-04] MEDS: ASPIRIN 81 MG ENTERIC TAB PO SCH (08:32)
[2020-03-04] MEDS: ZINC SULFATE 220 MG CAP PO SCH (08:32)
[2020-03-04] MEDS: SPIRONOLACTONE 25 MG TAB PO SCH (08:32)
[2020-03-04] MEDS: LACTOBACILLUS ACIDOPHILUS CAP (BACID) PO SCH ×3 (08:32→21:04)
[2020-03-04] MEDS: HEPARIN SOD (PORCINE) 5000UNITS/ML VIAL (J1644 PER 1000UNITS) SC SCH ×2 (08:33→21:06)
[2020-03-04] MEDS: DOCUSATE SODIUM 100 MG CAP PO SCH ×2 (08:33→21:00)
[2020-03-04] MEDS: REMEDY PHYTOPLEX Z-GUARD PASTE 113GM TUBE (FROM STOREROOM PRODUCT) TOP SCH ×3 (08:33→21:08)
[2020-03-04] MEDS: ACETAMINOPHEN 500 MG TAB PO SCH ×3 (08:33→21:00)
--- NOTE | 2020-03-04 08:34 | IPNPDOC ---
Text Note Date of Service The patient was seen on 03/04/20. NOTE Vascular Surgery. Dr Carvajal. 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 Afebrile. On exam, the right groin incision is clean dry and intact and healing well. No drainage is noted. [place] intact. The incision was cleaned, dry gauze and paper tape were applied. Palpable pulse over the right MANAGER NURSING. The left groin incision still continues to be more tenuous due to a resolving mild postop hematoma in the left groin, but appears to be slowly improving with less darkness at the lateral and inferior aspect of the incision, minimal drainage on the dressing, isabella are intact. Palpable pulse over left MANAGER NURSING and I am able to obtain doppler signal over the bypass. The right dorsal foot mottling and ulceration appears stable. There is no deterioration of the foot at this time. I am able to obtain doppler signal over the Rt DP, unable to obtain PT. The foot is cleaned and dressed with foam dressing. The left AKA stump is clean dry and intact. The incision was cleaned, Xeroform, fluffs, kerlix and a netting were placed. The patient tolerated the dressing change well. WBC 7.7. It was discussed with the patient per Dr. Carvajal previously, that she may require a right above-knee amputation as well. If this is the case, we are hopeful that it can wait a few weeks to give her body a chance to acclimate to the left above-knee amputation. Plan to continue to closely monitor the right foot. I have again discussed with the patient that it is possible that the right foot does appear improved as she has been off tobacco products and nicotine since her admission. I have discussed with her that her foot is certain to deteriorate again if she resumes smoking after discharge. The patient continues on Levaquin po D8 due to the infected nature of the left foot at the time of femorofemoral bypass with PTFE, because if the bypass gets infected, we will have to remove it which will significantly limit her left lower extremity in flow and have a significant amount of morbidity and mortality. Lipitor/ASA/Plavix. Continue to closely monitor. VS,Fishbone, I+O VS, Fishbone, I+O Laboratory Tests 03/04/20 06:54 Vital Signs Date Time Temp Pulse Resp B/P (MAP) Pulse Ox O2 Delivery O2 Flow Rate FiO2 03/04/20 06:45 18 Room Air 03/04/20 06:00 97.5 72 130/63 (85) 95 I&O- Last 24 Hours up to 6 AM 03/04/20 05:59 Intake Total 600 ml Balance 600 ml Heydi Lee Mar 04, 2020 08:33
[2020-03-04 14:00] VITALS: BP 120/56
[2020-03-04] MEDS: MAGNESIUM SULFATE GRANULES(EPSOM SALT) 1LB TOP SCH (15:11)
[2020-03-04 21:00] VITALS: BP 114/55
[2020-03-04] MEDS: SENNA 8.6 MG TAB (SENOKOT) PO SCH (21:00)
[2020-03-05] MEDS: oxyCODONE 5MG TAB PO PRN ×5 (01:18→21:58)
[2020-03-05 06:27] VITALS: BP 134/63
[2020-03-05] MEDS: IPRATROPIUM 0.5MG/ALBUTEROL 2.5MG INH SOL UD 3ML (DUONEB) NEB SCH ×3 (07:01→20:00)
[2020-03-05] MEDS: ASPIRIN 81 MG ENTERIC TAB PO SCH (08:16)
[2020-03-05] MEDS: DOCUSATE SODIUM 100 MG CAP PO SCH ×3 (08:16→21:00)
[2020-03-05] MEDS: PANTOPRAZOLE 40MG TAB (PROTONIX) PO SCH (08:16)
[2020-03-05] MEDS: ZINC SULFATE 220 MG CAP PO SCH (08:16)
[2020-03-05] MEDS: CLOPIDOGREL 75 MG TAB PO SCH (08:16)
[2020-03-05] MEDS: LACTOBACILLUS ACIDOPHILUS CAP (BACID) PO SCH ×3 (08:16→21:58)
[2020-03-05] MEDS: ASCORBIC ACID 500 MG TAB PO SCH (08:16)
[2020-03-05] MEDS: ATORVASTATIN 20 MG TAB PO SCH (08:16)
[2020-03-05] MEDS: TERAZOSIN 1 MG CAP PO SCH (08:17)
[2020-03-05] MEDS: HEPARIN SOD (PORCINE) 5000UNITS/ML VIAL (J1644 PER 1000UNITS) SC SCH ×2 (08:17→21:58)
[2020-03-05] MEDS: ACETAMINOPHEN 500 MG TAB PO SCH ×3 (08:18→21:00)
[2020-03-05] MEDS: LOSARTAN 50MG TABLET PO SCH (08:18)
[2020-03-05] MEDS: SPIRONOLACTONE 25 MG TAB PO SCH (08:19)
[2020-03-05] MEDS: LIDOCAINE VISCOUS 2% SOLN 15ML UDC SSP SCH ×3 (08:20→22:00)
[2020-03-05] MEDS: REMEDY PHYTOPLEX Z-GUARD PASTE 113GM TUBE (FROM STOREROOM PRODUCT) TOP SCH ×3 (08:20→21:59)
[2020-03-05 14:00] VITALS: BP 110/53
[2020-03-05 20:58] VITALS: BP 115/57
[2020-03-05] MEDS: SENNA 8.6 MG TAB (SENOKOT) PO SCH (21:00)
[2020-03-06] MEDS: oxyCODONE 5MG TAB PO PRN ×4 (02:03→20:03)
[2020-03-06 05:37] VITALS: BP 132/59
[2020-03-06] MEDS: IPRATROPIUM 0.5MG/ALBUTEROL 2.5MG INH SOL UD 3ML (DUONEB) NEB SCH ×3 (07:08→20:00)
[2020-03-06] MEDS: DOCUSATE SODIUM 100 MG CAP PO SCH ×2 (09:00→20:04)
[2020-03-06] MEDS: ACETAMINOPHEN 500 MG TAB PO SCH ×3 (09:00→20:03)
[2020-03-06] MEDS: LACTOBACILLUS ACIDOPHILUS CAP (BACID) PO SCH ×3 (09:05→20:02)
[2020-03-06] MEDS: ASCORBIC ACID 500 MG TAB PO SCH (09:05)
[2020-03-06] MEDS: LIDOCAINE VISCOUS 2% SOLN 15ML UDC SSP SCH ×3 (09:06→21:00)
[2020-03-06] MEDS: CLOPIDOGREL 75 MG TAB PO SCH (09:06)
[2020-03-06] MEDS: SPIRONOLACTONE 25 MG TAB PO SCH (09:06)
[2020-03-06] MEDS: PANTOPRAZOLE 40MG TAB (PROTONIX) PO SCH (09:06)
[2020-03-06] MEDS: HEPARIN SOD (PORCINE) 5000UNITS/ML VIAL (J1644 PER 1000UNITS) SC SCH ×2 (09:06→20:03)
[2020-03-06] MEDS: ATORVASTATIN 20 MG TAB PO SCH (09:06)
[2020-03-06] MEDS: ZINC SULFATE 220 MG CAP PO SCH (09:06)
[2020-03-06] MEDS: LOSARTAN 50MG TABLET PO SCH (09:07)
[2020-03-06] MEDS: TERAZOSIN 1 MG CAP PO SCH (09:07)
[2020-03-06] MEDS: ASPIRIN 81 MG ENTERIC TAB PO SCH (09:07)
[2020-03-06] MEDS: REMEDY PHYTOPLEX Z-GUARD PASTE 113GM TUBE (FROM STOREROOM PRODUCT) TOP SCH ×3 (09:08→20:04)
[2020-03-06 14:00] VITALS: BP 109/54
[2020-03-06] MEDS: SENNA 8.6 MG TAB (SENOKOT) PO SCH (20:04)
[2020-03-07 06:00] VITALS: BP 121/58
[2020-03-07 06:10] LABS: BASO # 0.1 10^3/uL (0.0-0.2); BASO % 0.5 % (0.0-1.0); EOS # 0.6 10^3/uL (0.0-0.5); HEMATOCRIT 28.7 % (36.0-47.0); HEMOGLOBIN 9.2 g/dl (12.0-15.5); LYMPH # 1.2 10^3/uL (1.5-5.0); LYMPH % 13.1 % (24.0-44.0); MEAN CORPUSCULAR HEMOGLOBIN 31.7 pg (27.0-33.0); MEAN CORPUSCULAR HGB CONC 32.1 g/dl (32.0-36.5); MONO # 0.8 10^3/uL (0.0-0.8); MONO % 8.9 % (0.0-5.0); NEUTROPHILS # 6.4 10^3/uL (1.5-8.5); NEUTROPHILS % 69.7 % (36.0-66.0); PLATELET COUNT, AUTOMATED 477 10^3/uL (150-450); WHITE BLOOD COUNT 9.2 10^3/uL (4.0-10.0)
[2020-03-07 06:36] LABS: BLOOD UREA NITROGEN 10 MG/DL (7-18); CALCIUM LEVEL 8.5 MG/DL (8.8-10.2); CARBON DIOXIDE LEVEL 27 MEQ/L (21-32); CHLORIDE LEVEL 106 MEQ/L (98-107); GLOMERULAR FILTRATION RATE > 60.0 (>32); GLUCOSE, FASTING 95 MG/DL (70-100); POTASSIUM SERUM 4.5 MEQ/L (3.5-5.1); SODIUM LEVEL 139 MEQ/L (136-145)
[2020-03-07] MEDS: IPRATROPIUM 0.5MG/ALBUTEROL 2.5MG INH SOL UD 3ML (DUONEB) NEB SCH ×3 (08:00→19:46)
[2020-03-07] MEDS: HEPARIN SOD (PORCINE) 5000UNITS/ML VIAL (J1644 PER 1000UNITS) SC SCH ×2 (08:55→21:17)
[2020-03-07] MEDS: ATORVASTATIN 20 MG TAB PO SCH (08:55)
[2020-03-07] MEDS: ASPIRIN 81 MG ENTERIC TAB PO SCH (08:56)
[2020-03-07] MEDS: ZINC SULFATE 220 MG CAP PO SCH (08:56)
[2020-03-07] MEDS: ASCORBIC ACID 500 MG TAB PO SCH (08:56)
[2020-03-07] MEDS: TERAZOSIN 1 MG CAP PO SCH (08:56)
[2020-03-07] MEDS: PANTOPRAZOLE 40MG TAB (PROTONIX) PO SCH (08:56)
[2020-03-07] MEDS: CLOPIDOGREL 75 MG TAB PO SCH (08:56)
[2020-03-07] MEDS: LACTOBACILLUS ACIDOPHILUS CAP (BACID) PO SCH ×3 (08:56→21:17)
[2020-03-07] MEDS: SPIRONOLACTONE 25 MG TAB PO SCH (08:56)
[2020-03-07] MEDS: LOSARTAN 50MG TABLET PO SCH (08:56)
[2020-03-07] MEDS: REMEDY PHYTOPLEX Z-GUARD PASTE 113GM TUBE (FROM STOREROOM PRODUCT) TOP SCH ×3 (08:57→21:18)
[2020-03-07] MEDS: DOCUSATE SODIUM 100 MG CAP PO SCH ×2 (08:57→21:00)
[2020-03-07] MEDS: LIDOCAINE VISCOUS 2% SOLN 15ML UDC SSP SCH ×3 (08:57→21:00)
[2020-03-07] MEDS: ACETAMINOPHEN 500 MG TAB PO SCH ×4 (08:57→21:00)
[2020-03-07] MEDS: oxyCODONE 5MG TAB PO PRN ×3 (09:03→22:54)
--- NOTE | 2020-03-07 12:57 | IPNPDOC ---
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 REVIEW OF SYSTEMS: The following is a completed review of systems and has been reviewed. Review of systems otherwise unremarkable. PAIN: Patient self reports left residual limb pain EYES: No recent vision changes EARS, NOSE, & THROAT: No throat pain, or dysphagia, or rhinorrhea CARDIOVASCULAR: Denies chest pain or palpitations PULMONARY: Denies shortness of breath GASTROINTESTINAL: Denies constipation/diarrhea GENITOURINARY: denies dysuria, +retention (improving) MUSCULOSKELETAL: LLE AKA NEUROLOGICAL:+paresthesias right foot HEMATOLOGICAL: +anemia SKIN: scattered ecchymosis, left residual limb incision, right foot wound PSYCHIATRIC: Unremarkable All other review of systems found to be negative. PHYSICAL EXAMINATION: VITAL SIGNS: Please see below. GENERAL: Pleasant and cooperative. No acute distress. HEENT: PERRL. Extraocular movements intact. Clear conjunctiva, tongue red without any discoloration/white coating CARDIOVASCULAR: Regular rate and rhythm. No murmurs, rubs, or gallops LUNGS: Clear to auscultation bilaterally. No wheezes. No rhonchi ABDOMEN: Soft, nontender, nondistended. Positive bowel sounds. Normal active bowel sounds NEUROLOGICAL: Alert and oriented times three. Cranial nerves II through XII grossly intact. Sensation decreased to light touch RLE EXTREMITIES: 5\5 strength bilateral upper extremities. 4+\5 strength right lower extremity. 4+/5 strength in left hip flexion. SKIN: left AKA incision c/d/i no induration or drainage right midfoot with ulcers with exudate bilat groin incisions no drainage ASSESSMENT:79-year-old F with past medical history of Buerger's disease who presents status post left AKA PLAN: 1. Rehab- PT/OT advance gait and ADLs, strengthen/stretch/maintain ROM all 4limbs, desensitization therapy 2. Vasc- s/p left AKA 02-23-20, vascular consulted-recs appreciated -c/u ASA and Plavix for PAD 3. CArdiac- hx of HTN c/u losartan and spironolactone- medicine consulted to assist in management -CAD on ASA -HLD c/u statin 4. resp- smoker, c/u DUonebs and monitor for infection 4. ID- c/u levaquin for LLE wound healing, monitor CRPs and leukocytosis 5. Heme- post op anemia, consider transfusion if Hgb <8 6. DVT ppx- heparin 7. GI ppx- protonix 8. Pain- tylenol, oxycodone prn -tongue pain without signs of thrush, improving, c/u lidocaine viscous rinse 9. - patient with retention over the weekend, removed Whit[place], UA negative, c/u Terazosin 10. Skin- per instructions 11. Dispo- 03-11-20 to home, progressing towards goals Allergies Coded Allergies: ciprofloxacin (Verified Adverse Reaction, Intermediate, gives pt c-diff, 02/12/20) Vital Signs Vital Signs Date Time Temp Pulse Resp B/P (MAP) Pulse Ox O2 Delivery O2 Flow Rate FiO2 03/07/20 09:03 18 03/07/20 08:56 124/68 03/07/20 06:00 98.9 93 98 Room Air Laboratory Data CBC/BMP Laboratory Tests 03/07/20 05:59 Labs 24H Laboratory Tests 2 03/07/20 05:59: Immature Granulocyte % (Auto) 0.8, Neutrophils (%) (Auto) 69.7H, Lymphocytes (%) (Auto) 13.1L, Monocytes (%) (Auto) 8.9H, Eosinophils (%) (Auto) 7.0H, Basophils (%) (Auto) 0.5, Neutrophils # (Auto) 6.4, Lymphocytes # (Auto) 1.2L, Monocytes # (Auto) 0.8, Eosinophils # (Auto) 0.6H, Basophils # (Auto) 0.1, Nucleated Red Blood Cells % (auto) 0.0, Anion Gap 6L, Glomerular Filtration Rate > 60.0, Calcium Level 8.5L Current Medications Current Medications Current Medications Medications (Trade) Dose Ordered Sig/Riya Route PRN Reason Start Time Stop Time Status Last Admin Dose Admin Acetaminophen (Tylenol Tab) 1,000 mg TID PO 02/25/20 16:00 02/28/20 20:30 Albuterol/ Ipratropium (Duoneb (Ipr 0.5mg/Alb 2.5mg)) 3 ml RTID NEB 02/25/20 20:00 03/02/20 13:53 Ascorbic Acid (Vitamin C) 500 mg DAILY PO 02/26/20 09:00 03/07/20 08:56 Aspirin (Ecotrin) 81 mg DAILY PO 02/26/20 09:00 03/07/20 08:56 Atorvastatin Calcium (Lipitor) 40 mg DAILY PO 02/27/20 09:00 03/07/20 08:55 Bisacodyl (Dulcolax Suppository) 10 mg DAILYPRN PRN [place] CONSTIPATION 02/25/20 13:00 Bisacodyl (Dulcolax Tab) 5 mg DAILYPRN PRN PO CONSTIPATION 02/25/20 13:00 Clopidogrel Bisulfate (PLAVix) 75 mg DAILY PO 02/26/20 09:00 03/07/20 08:56 Docusate Sodium (Colace) 100 mg BID PO 02/25/20 21:00 02/28/20 09:18 Heparin Sodium (Porcine) (Heparin) 5,000 units Q12H SC 02/25/20 21:00 03/07/20 08:55 Lactobacillus Acidophilus (Bacid) 1 ea TID PO 02/25/20 16:00 03/07/20 08:56 Levofloxacin (Levaquin) 500 mg DAILY@06 PO 02/26/20 06:00 03/04/20 13:12 DC 03/04/20 05:29 Lidocaine HCl (Lidocaine 2% Visc Soln) 5 ml TID SSP 02/29/20 16:00 03/07/20 08:57 Losartan Potassium (Cozaar) 50 mg DAILY PO 02/26/20 09:00 03/07/20 08:56 Magnesium Sulfate (Epsom Salt) 1 dose ASDIRECTED TOP 03/02/20 15:00 03/04/20 15:11 Oxycodone HCl (Roxicodone, Oxyir) 5 mg Q4HP PRN PO PAIN 02/25/20 13:00 03/07/20 09:03 Pantoprazole Sodium (Protonix) 40 mg DAILY PO 02/26/20 09:00 03/07/20 08:56 Pravastatin Sodium (Pravachol) 20 mg DAILY PO 02/26/20 09:00 02/26/20 12:03 DC 02/26/20 08:07 Senna (Senokot) 1 tab QHS PO 02/25/20 21:00 02/27/20 20:17 Spironolactone (Aldactone) 25 mg QAM PO 02/26/20 09:00 03/07/20 08:56 Tamsulosin HCl (Flomax) 0.4 mg QHS PO 03/01/20 21:00 03/01/20 16:28 DC Terazosin HCl (Hytrin) 2 mg DAILY PO 03/01/20 16:30 03/07/20 08:56 Zinc Sulfate (Zinc Sulfate) 220 mg DAILY PO 02/26/20 09:00 03/07/20 08:56 NAOMI CHAPA MD Mar 07, 2020 12:57
--- NOTE | 2020-03-07 12:59 | IPNPDOC ---
PM&R Progress Note DATE OF SERVICE: Mar 07, 2020 Event Management Consultant Progress Note Subjective Patient reporting she would like to start transferring herself to the bedside commode on her own and feels like she is getting stronger. REVIEW OF SYSTEMS: The following is a completed review of systems and has been reviewed. Review of systems otherwise unremarkable. PAIN: Patient self reports left residual limb pain EYES: No recent vision changes EARS, NOSE, & THROAT: No throat pain, or dysphagia, or rhinorrhea CARDIOVASCULAR: Denies chest pain or palpitations PULMONARY: Denies shortness of breath GASTROINTESTINAL: Denies constipation/diarrhea GENITOURINARY: denies dysuria, +retention (resolved) MUSCULOSKELETAL: LLE AKA NEUROLOGICAL:+paresthesias right foot HEMATOLOGICAL: +anemia SKIN: scattered ecchymosis, left residual limb incision, right foot wound PSYCHIATRIC: Unremarkable All other review of systems found to be negative. PHYSICAL EXAMINATION: VITAL SIGNS: Please see below. GENERAL: Pleasant and cooperative. No acute distress. HEENT: PERRL. Extraocular movements intact. Clear conjunctiva, tongue red without any discoloration/white coating CARDIOVASCULAR: Regular rate and rhythm. No murmurs, rubs, or gallops LUNGS: Clear to auscultation bilaterally. No wheezes. No rhonchi ABDOMEN: Soft, nontender, nondistended. Positive bowel sounds. Normal active bowel sounds NEUROLOGICAL: Alert and oriented times three. Cranial nerves II through XII grossly intact. Sensation decreased to light touch RLE EXTREMITIES: 5\5 strength bilateral upper extremities. 4+\5 strength right lower extremity. 4+/5 strength in left hip flexion. SKIN: left AKA incision c/d/i no induration or drainage right midfoot with ulcers with exudate bilat groin incisions no drainage ASSESSMENT:79-year-old F with past medical history of Buerger's disease who presents status post left AKA PLAN: 1. Rehab- PT/OT advance gait and ADLs, strengthen/stretch/maintain ROM all 4limbs, desensitization therapy 2. Vasc- s/p left AKA 02-23-20, vascular consulted-recs appreciated -c/u ASA and Plavix for PAD 3. CArdiac- hx of HTN c/u losartan and spironolactone- medicine consulted to assist in management -CAD on ASA -HLD c/u statin 4. resp- smoker, c/u DUonebs and monitor for infection 4. ID- s/p course of levaquin for LLE wound healing, monitor CRPs and maricarmen kocytosis trending down 5. Heme- post op anemia, consider transfusion if Hgb <8 6. DVT ppx- heparin 7. GI ppx- protonix 8. Pain- tylenol, oxycodone prn -tongue pain without signs of thrush, improving, c/u lidocaine viscous rinse- resolved 9. - patient with retention over the weekend, removed Whitmore, UA negative, c/u Terazosin 10. Skin- per instructions 11. Dispo- 03-11-20 to home, progressing towards goals, patient cleared to transfer to bedside commode on her own, will aim for room privileges prior to discharge Allergies Coded Allergies: ciprofloxacin (Verified Adverse Reaction, Intermediate, gives pt c-diff, 02/12/20) Vital Signs Vital Signs Date Time Temp Pulse Resp B/P (MAP) Pulse Ox O2 Delivery O2 Flow Rate FiO2 03/07/20 09:03 18 03/07/20 08:56 124/68 03/07/20 06:00 98.9 93 98 Room Air Laboratory Data CBC/BMP Laboratory Tests 03/07/20 05:59 Labs 24H Laboratory Tests 2 03/07/20 05:59: Immature Granulocyte % (Auto) 0.8, Neutrophils (%) (Auto) 69.7H, Lymphocytes (%) (Auto) 13.1L, Monocytes (%) (Auto) 8.9H, Eosinophils (%) (Auto) 7.0H, Basophils (%) (Auto) 0.5, Neutrophils # (Auto) 6.4, Lymphocytes # (Auto) 1.2L, Monocytes # (Auto) 0.8, Eosinophils # (Auto) 0.6H, Basophils # (Auto) 0.1, Nucleated Red Blood Cells % (auto) 0.0, Anion Gap 6L, Glomerular Filtration Rate > 60.0, Calcium Level 8.5L Current Medications Current Medications Current Medications Medications (Trade) Dose Ordered Sig/Riya Route PRN Reason Start Time Stop Time Status Last Admin Dose Admin Acetaminophen (Tylenol Tab) 1,000 mg TID PO 02/25/20 16:00 02/28/20 20:30 Albuterol/ Ipratropium (Duoneb (Ipr 0.5mg/Alb 2.5mg)) 3 ml RTID NEB 02/25/20 20:00 03/02/20 13:53 Ascorbic Acid (Vitamin C) 500 mg DAILY PO 02/26/20 09:00 03/07/20 08:56 Aspirin (Ecotrin) 81 mg DAILY PO 02/26/20 09:00 03/07/20 08:56 Atorvastatin Calcium (Lipitor) 40 mg DAILY PO 02/27/20 09:00 03/07/20 08:55 Bisacodyl (Dulcolax Suppository) 10 mg DAILYPRN PRN [place] CONSTIPATION 02/25/20 13:00 Bisacodyl (Dulcolax Tab) 5 mg DAILYPRN PRN PO CONSTIPATION 02/25/20 13:00 Clopidogrel Bisulfate (PLAVix) 75 mg DAILY PO 02/26/20 09:00 03/07/20 08:56 Docusate Sodium (Colace) 100 mg BID PO 02/25/20 21:00 02/28/20 09:18 Heparin Sodium (Porcine) (Heparin) 5,000 units Q12H SC 02/25/20 21:00 03/07/20 08:55 Lactobacillus Acidophilus (Bacid) 1 ea TID PO 02/25/20 16:00 03/07/20 08:56 Levofloxacin (Levaquin) 500 mg DAILY@06 PO 02/26/20 06:00 03/04/20 13:12 DC 03/04/20 05:29 Lidocaine HCl (Lidocaine 2% Visc Soln) 5 ml TID SSP 02/29/20 16:00 03/07/20 08:57 Losartan Potassium (Cozaar) 50 mg DAILY PO 02/26/20 09:00 03/07/20 08:56 Magnesium Sulfate (Epsom Salt) 1 dose ASDIRECTED TOP 03/02/20 15:00 03/04/20 15:11 Oxycodone HCl (Roxicodone, Oxyir) 5 mg Q4HP PRN PO PAIN 02/25/20 13:00 03/07/20 09:03 Pantoprazole Sodium (Protonix) 40 mg DAILY PO 02/26/20 09:00 03/07/20 08:56 Pravastatin Sodium (Pravachol) 20 mg DAILY PO 02/26/20 09:00 02/26/20 12:03 DC 02/26/20 08:07 Senna (Senokot) 1 tab QHS PO 02/25/20 21:00 02/27/20 20:17 Spironolactone (Aldactone) 25 mg QAM PO 02/26/20 09:00 03/07/20 08:56 Tamsulosin HCl (Flomax) 0.4 mg QHS PO 03/01/20 21:00 03/01/20 16:28 DC Terazosin HCl (Hytrin) 2 mg DAILY PO 03/01/20 16:30 03/07/20 08:56 Zinc Sulfate (Zinc Sulfate) 220 mg DAILY PO 02/26/20 09:00 03/07/20 08:56 NAOMI CHAPA MD Mar 07, 2020 12:59
--- NOTE | 2020-03-07 13:23 | IPNPDOC ---
Text Note Date of Service The patient was seen on 03/07/20. NOTE Vascular Surgery. Dr Carvajal. Patient seen and examined now 18 days status post a very challenging bilateral common femoral endarterectomy and right to left femorofemoral bypass, and 13 days status post left above-knee amputation for gangrene of the left foot present prior to her initial surgery. Afebrile. On exam, the right groin incision is clean dry and intact and healing well. No drainage is noted. Rumsey intact. The incision was cleaned, dry gauze and paper tape were applied. Palpable pulse over the right APARTMENT LEASING MANAGER. The left groin incision still continues to be more tenuous due to a resolving mild postop hematoma in the left groin, but appears to be slowly improving with less darkness at the lateral and inferior aspect of the incision, no drainage, isabella are intact. Palpable pulse over left APARTMENT LEASING MANAGER. The right dorsal foot mottling and ulceration appears stable. There is no deterioration of the foot at this time. The foot is dressed with foam dressing. The left AKA stump is clean dry and intact. Plan to continue to closely monitor the right foot. I have again discussed with the patient that it is possible that the right foot does appear improved as she has been off tobacco products and nicotine since her admission. I have discussed with her that her foot is certain to deteriorate again if she resumes smoking after discharge. The patient finished Levaquin 03/04 Lipitor/ASA/Plavix. Plan to remove right groin isabella 03/08 and left groin/stump isabella prior to her discharge 03/09 or 03/10. Sutures left stump will stay and for an additional one week. Continue to closely monitor. VS,Fishbone, I+O VS, Fishbone, I+O Laboratory Tests 03/07/20 05:59 Vital Signs Date Time Temp Pulse Resp B/P (MAP) Pulse Ox O2 Delivery O2 Flow Rate FiO2 03/07/20 09:33 18 03/07/20 08:56 124/68 03/07/20 06:00 98.9 93 98 Room Air I&O- Last 24 Hours up to 6 AM 03/07/20 06:00 Intake Total 540 ml Output Total 400 ml Balance 140 ml Heydi Lee Mar 07, 2020 13:23
[2020-03-07 14:00] VITALS: BP 95/52
[2020-03-07 20:02] VITALS: BP 120/56
[2020-03-07] MEDS: SENNA 8.6 MG TAB (SENOKOT) PO SCH (21:00)
[2020-03-08 06:00] VITALS: BP 152/68
[2020-03-08] MEDS: IPRATROPIUM 0.5MG/ALBUTEROL 2.5MG INH SOL UD 3ML (DUONEB) NEB SCH ×3 (07:03→20:00)
--- NOTE | 2020-03-08 08:57 | IPNPDOC ---
Text Note Date of Service The patient was seen on 03/08/20. NOTE Vascular Surgery. Dr Carvajal. Patient seen and examined now 19 days status post a very challenging bilateral common femoral endarterectomy and right to left femorofemoral bypass, and 14 days status post left above-knee amputation for gangrene of the left foot present prior to her initial surgery. Afebrile. On exam, the right groin incision is clean dry and intact and healing well. No drainage is noted. [place] are removed today. The incision was cleaned, steri strips applied, dry gauze and paper tape were applied. Palpable pulse over the right MARKING MACHINE TENDER. The left groin incision with resolving mild postop hematoma in the left groin, but appears to be slowly improving with less darkness at the lateral and inferior aspect of the incision, no drainage, isabella are intact. Palpable pulse over left MARKING MACHINE TENDER, strong doppler signal over the bypass. The right dorsal foot mottling and ulceration appears stable. There is no deterioration of the foot at this time. The foot is dressed with foam dressing. monophasic doppler signal at Rt DP, faint signal at PT. The left AKA stump is clean dry and intact. isabella and sutures are intact. The wound is thoroughly cleaned. The wound is dressed with Xeroform, dry gauze, Kerlix and paper tape. Plan to continue to closely monitor the right foot. I have again discussed with the patient that it is possible that the right foot does appear improved as she has been off tobacco products and nicotine since her admission. I have discussed with her that her foot is certain to deteriorate again if she resumes smoking after discharge. The patient finished Levaquin 03/04 Lipitor/ASA/Plavix. [place] are removed from right groin incision today and Steri-Strips are applied. The patient is advised to continue with dry dressing and allow Steri- Strips to fall off on their own. Plan to remove left groin/stump isabella prior to her discharge 03/10. Sutures left stump will stay and for an additional one week. The patient should follow-up with vascular surgery one week after her discharge. Continue to closely monitor. VS,Fishbone, I+O VS, Fishbone, I+O Vital Signs Date Time Temp Pulse Resp B/P (MAP) Pulse Ox O2 Delivery O2 Flow Rate FiO2 03/08/20 06:00 98.5 72 18 152/68 (96) 95 Room Air I&O- Last 24 Hours up to 6 AM 03/08/20 05:59 Intake Total 480 ml Balance 480 ml Heydi Lee Mar 08, 2020 08:57
[2020-03-08] MEDS: DOCUSATE SODIUM 100 MG CAP PO SCH ×2 (09:00→21:00)
[2020-03-08] MEDS: LIDOCAINE VISCOUS 2% SOLN 15ML UDC SSP SCH ×3 (09:00→21:00)
[2020-03-08] MEDS: ACETAMINOPHEN 500 MG TAB PO SCH ×3 (09:00→21:00)
[2020-03-08] MEDS: LOSARTAN 50MG TABLET PO SCH (09:19)
[2020-03-08] MEDS: ZINC SULFATE 220 MG CAP PO SCH (09:21)
[2020-03-08] MEDS: ASCORBIC ACID 500 MG TAB PO SCH (09:21)
[2020-03-08] MEDS: ASPIRIN 81 MG ENTERIC TAB PO SCH (09:21)
[2020-03-08] MEDS: LACTOBACILLUS ACIDOPHILUS CAP (BACID) PO SCH ×3 (09:21→22:07)
[2020-03-08] MEDS: CLOPIDOGREL 75 MG TAB PO SCH (09:21)
[2020-03-08] MEDS: PANTOPRAZOLE 40MG TAB (PROTONIX) PO SCH (09:21)
[2020-03-08] MEDS: SPIRONOLACTONE 25 MG TAB PO SCH (09:21)
--- NOTE | 2020-03-08 09:21 | IPN ---
DATE: 03/07/2020 No new complaints. Patient is sleeping at the bedside, easily arousable. No pain despite low blood pressure 95/52. Patient has no dizziness, lightheadedness, chest pain, pressure or tightness, fever, chills, cough or shortness of breath. Temperature 98, pulse 59, respiratory rate 16, blood pressure 95/52, 99% on room air. Generally patient is awake, alert, oriented to person, place and time, answering questions appropriately. Lungs are clear to auscultation. No wheezing, rales or rhonchi. Heart: S1, S2. Sinus rhythm. Abdomen is soft, nontender. Nondistended. Positive bowel sounds. Extremities: Left above knee amputation (AKA). Skin dry, intact. LABORATORY DATA: Imaging studies reviewed. This is an 80 year old female with peripheral vascular disease, anemia, smoking history, coronary artery disease (CAD), hypertension, status post femoral endarterectomy and right and left femoral/femoral bypass had a single vessel run-off to both lower extremities with infected necrotic left foot at the time of admission. Patient underwent smoking cessation but non-healing wound of the foot required left lower extremity above the knee amputation on 02/22/2020 by vascular surgery, Dr. Carvajal. Postop management per vascular surgery. Deep venous thrombosis (DVT) prophylaxis and pain control. Tobacco use: Smoking cessation counseling. History of coronary artery disease on atorvastatin, beta neville anemia secondary to chronic disease.
[2020-03-08] MEDS: HEPARIN SOD (PORCINE) 5000UNITS/ML VIAL (J1644 PER 1000UNITS) SC SCH ×2 (09:22→22:08)
[2020-03-08] MEDS: REMEDY PHYTOPLEX Z-GUARD PASTE 113GM TUBE (FROM STOREROOM PRODUCT) TOP SCH ×3 (09:22→21:00)
[2020-03-08] MEDS: ATORVASTATIN 20 MG TAB PO SCH (09:22)
[2020-03-08] MEDS: TERAZOSIN 1 MG CAP PO SCH (09:22)
[2020-03-08] MEDS: oxyCODONE 5MG TAB PO PRN ×2 (11:53→22:07)
[2020-03-08 14:00] VITALS: BP 92/41
[2020-03-08 20:00] VITALS: BP 121/56
[2020-03-08] MEDS: SENNA 8.6 MG TAB (SENOKOT) PO SCH (21:00)
[2020-03-09 06:00] VITALS: BP 127/58
[2020-03-09 06:30] LABS: BASO # 0.1 10^3/uL (0.0-0.2); BASO % 0.9 % (0.0-1.0); EOS # 0.7 10^3/uL (0.0-0.5); EOS % 9.5 % (0.0-3.0); HEMATOCRIT 28.6 % (36.0-47.0); HEMOGLOBIN 9.2 g/dl (12.0-15.5); LYMPH # 1.1 10^3/uL (1.5-5.0); LYMPH % 16.4 % (24.0-44.0); MEAN CORPUSCULAR HEMOGLOBIN 31.9 pg (27.0-33.0); MEAN CORPUSCULAR HGB CONC 32.2 g/dl (32.0-36.5); MEAN CORPUSCULAR VOLUME 99.3 fl (80.0-96.0); MONO # 0.7 10^3/uL (0.0-0.8); MONO % 9.8 % (0.0-5.0); NEUTROPHILS # 4.4 10^3/uL (1.5-8.5); PLATELET COUNT, AUTOMATED 429 10^3/uL (150-450); RED BLOOD COUNT 2.88 10^6/uL (4.00-5.40)
[2020-03-09 06:49] LABS: BLOOD UREA NITROGEN 10 MG/DL (7-18); CALCIUM LEVEL 8.6 MG/DL (8.8-10.2); CARBON DIOXIDE LEVEL 27 MEQ/L (21-32); CHLORIDE LEVEL 105 MEQ/L (98-107); CREATININE FOR GFR 0.57 MG/DL (0.55-1.30); GLOMERULAR FILTRATION RATE > 60.0 (>32); GLUCOSE, FASTING 87 MG/DL (70-100); POTASSIUM SERUM 4.3 MEQ/L (3.5-5.1); SODIUM LEVEL 139 MEQ/L (136-145)
[2020-03-09] MEDS: IPRATROPIUM 0.5MG/ALBUTEROL 2.5MG INH SOL UD 3ML (DUONEB) NEB SCH ×3 (07:45→19:47)
[2020-03-09] MEDS: LACTOBACILLUS ACIDOPHILUS CAP (BACID) PO SCH ×3 (08:49→20:19)
[2020-03-09] MEDS: HEPARIN SOD (PORCINE) 5000UNITS/ML VIAL (J1644 PER 1000UNITS) SC SCH ×2 (08:49→20:19)
[2020-03-09] MEDS: ZINC SULFATE 220 MG CAP PO SCH (08:50)
[2020-03-09] MEDS: CLOPIDOGREL 75 MG TAB PO SCH (08:50)
[2020-03-09] MEDS: ASPIRIN 81 MG ENTERIC TAB PO SCH (08:50)
[2020-03-09] MEDS: DOCUSATE SODIUM 100 MG CAP PO SCH ×2 (08:50→20:20)
[2020-03-09] MEDS: LOSARTAN 50MG TABLET PO SCH (08:50)
[2020-03-09] MEDS: SPIRONOLACTONE 25 MG TAB PO SCH (08:50)
[2020-03-09] MEDS: ASCORBIC ACID 500 MG TAB PO SCH (08:50)
[2020-03-09] MEDS: TERAZOSIN 1 MG CAP PO SCH (08:50)
[2020-03-09] MEDS: ATORVASTATIN 20 MG TAB PO SCH (08:50)
[2020-03-09] MEDS: PANTOPRAZOLE 40MG TAB (PROTONIX) PO SCH (08:50)
[2020-03-09] MEDS: ACETAMINOPHEN 500 MG TAB PO SCH ×4 (08:50→20:20)
[2020-03-09] MEDS: LIDOCAINE VISCOUS 2% SOLN 15ML UDC SSP SCH ×3 (08:51→20:19)
[2020-03-09] MEDS: REMEDY PHYTOPLEX Z-GUARD PASTE 113GM TUBE (FROM STOREROOM PRODUCT) TOP SCH ×3 (08:51→20:21)
--- NOTE | 2020-03-09 10:54 | IPNPDOC ---
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 She was encouraged and educated on not smoking when she returns home and that smoking contributed to her vascular disease. REVIEW OF SYSTEMS: The following is a completed review of systems and has been reviewed. Review of systems otherwise unremarkable. PAIN: Patient self reports left residual limb pain EYES: No recent vision changes EARS, NOSE, & THROAT: No throat pain, or dysphagia, or rhinorrhea CARDIOVASCULAR: Denies chest pain or palpitations PULMONARY: Denies shortness of breath GASTROINTESTINAL: Denies constipation/diarrhea GENITOURINARY: denies dysuria, +retention (resolved) MUSCULOSKELETAL: LLE AKA NEUROLOGICAL:+paresthesias right foot HEMATOLOGICAL: +anemia SKIN: scattered ecchymosis, left residual limb incision, right foot wound PSYCHIATRIC: Unremarkable All other review of systems found to be negative. PHYSICAL EXAMINATION: VITAL SIGNS: Please see below. GENERAL: Pleasant and cooperative. No acute distress. HEENT: PERRL. Extraocular movements intact. Clear conjunctiva, tongue red without any discoloration/white coating CARDIOVASCULAR: Regular rate and rhythm. No murmurs, rubs, or gallops LUNGS: Clear to auscultation bilaterally. No wheezes. No rhonchi ABDOMEN: Soft, nontender, nondistended. Positive bowel sounds. Normal active bowel sounds NEUROLOGICAL: Alert and oriented times three. Cranial nerves II through XII grossly intact. Sensation decreased to light touch RLE EXTREMITIES: 5\5 strength bilateral upper extremities. 4+\5 strength right lower extremity. 4+/5 strength in left hip flexion. SKIN: left AKA incision c/d/i no induration or drainage right midfoot with ulcers with (Less) exudate bilat groin incisions no drainage ASSESSMENT:79-year-old F with past medical history of Buerger's disease who presents status post left AKA PLAN: 1. Rehab- PT/OT advance gait and ADLs, strengthen/stretch/maintain ROM all 4limbs, desensitization therapy 2. Vasc- s/p left AKA 02-23-20, vascular consulted-recs appreciated, isabella residual limb and right groin removed -c/u ASA and Plavix for PAD 3. CArdiac- hx of HTN c/u losartan and spironolactone- medicine consulted to assist in management -CAD on ASA -HLD c/u statin 4. resp- smoker, c/u DUonebs and monitor for infection 4. ID- s/p course of levaquin for LLE wound healing, monitor CRPs and leuk ocytosis trending down 5. Heme- post op anemia, consider transfusion if Hgb <8-stable 6. DVT ppx- heparin 7. GI ppx- protonix 8. Pain- tylenol, oxycodone prn -tongue pain without signs of thrush, improving, c/u lidocaine viscous rinse- resolved 9. - patient with retention over the weekend, removed Whitmore, UA negative, c/u Terazosin, voiding well 10. Skin- per instructions 11. Dispo- 03-10-20 to home, progressing towards goals, patient cleared to transfer to bedside commode on her own, will aim for room privileges prior to discharge DME patient will require a wheelchair to complete her MRADLs in a timely and safe manner. She is unable to use a walker or cane to complete her MRADLs. Her home is accessible, she is willing to use it, and her family can assist her with the wheelchair. Allergies Coded Allergies: ciprofloxacin (Verified Adverse Reaction, Intermediate, gives pt c-diff, 02/12/20) Vital Signs Vital Signs Date Time Temp Pulse Resp B/P (MAP) Pulse Ox O2 Delivery O2 Flow Rate FiO2 03/09/20 08:50 127/58 03/09/20 06:00 98.0 68 18 95 Room Air Laboratory Data CBC/BMP Laboratory Tests 03/09/20 06:17 Labs 24H Laboratory Tests 2 03/09/20 06:17: Immature Granulocyte % (Auto) 0.4, Neutrophils (%) (Auto) 63.0, Lymphocytes (%) (Auto) 16.4L, Monocytes (%) (Auto) 9.8H, Eosinophils (%) (Auto) 9.5H, Basophils (%) (Auto) 0.9, Neutrophils # (Auto) 4.4, Lymphocytes # (Auto) 1.1L, Monocytes # (Auto) 0.7, Eosinophils # (Auto) 0.7H, Basophils # (Auto) 0.1, Nucleated Red Blood Cells % (auto) 0.0, Anion Gap 7L, Glomerular Filtration Rate > 60.0, Calcium Level 8.6L Current Medications Current Medications Current Medications Medications (Trade) Dose Ordered Sig/Riya Route PRN Reason Start Time Stop Time Status Last Admin Dose Admin Acetaminophen (Tylenol Tab) 1,000 mg TID PO 02/25/20 16:00 02/28/20 20:30 Albuterol/ Ipratropium (Duoneb (Ipr 0.5mg/Alb 2.5mg)) 3 ml RTID NEB 02/25/20 20:00 03/02/20 13:53 Ascorbic Acid (Vitamin C) 500 mg DAILY PO 02/26/20 09:00 03/09/20 08:50 Aspirin (Ecotrin) 81 mg DAILY PO 02/26/20 09:00 03/09/20 08:50 Atorvastatin Calcium (Lipitor) 40 mg DAILY PO 02/27/20 09:00 03/09/20 08:50 Bisacodyl (Dulcolax Suppository) 10 mg DAILYPRN PRN [place] CONSTIPATION 02/25/20 13:00 Bisacodyl (Dulcolax Tab) 5 mg DAILYPRN PRN PO CONSTIPATION 02/25/20 13:00 03/09/20 08:50 Clopidogrel Bisulfate (PLAVix) 75 mg DAILY PO 02/26/20 09:00 03/09/20 08:50 Docusate Sodium (Colace) 100 mg BID PO 02/25/20 21:00 03/09/20 08:50 Heparin Sodium (Porcine) (Heparin) 5,000 units Q12H SC 02/25/20 21:00 03/09/20 08:49 Lactobacillus Acidophilus (Bacid) 1 ea TID PO 02/25/20 16:00 03/09/20 08:49 Levofloxacin (Levaquin) 500 mg DAILY@06 PO 02/26/20 06:00 03/04/20 13:12 DC 03/04/20 05:29 Lidocaine HCl (Lidocaine 2% Visc Soln) 5 ml TID SSP 02/29/20 16:00 03/07/20 17:40 Losartan Potassium (Cozaar) 50 mg DAILY PO 02/26/20 09:00 03/09/20 08:50 Magnesium Sulfate (Epsom Salt) 1 dose ASDIRECTED TOP 03/02/20 15:00 03/04/20 15:11 Oxycodone HCl (Roxicodone, Oxyir) 5 mg Q4HP PRN PO PAIN 02/25/20 13:00 03/08/20 22:07 Pantoprazole Sodium (Protonix) 40 mg DAILY PO 02/26/20 09:00 03/09/20 08:50 Pravastatin Sodium (Pravachol) 20 mg DAILY PO 02/26/20 09:00 02/26/20 12:03 DC 02/26/20 08:07 Senna (Senokot) 1 tab QHS PO 02/25/20 21:00 02/27/20 20:17 Spironolactone (Aldactone) 25 mg QAM PO 02/26/20 09:00 03/09/20 08:50 Tamsulosin HCl (Flomax) 0.4 mg QHS PO 03/01/20 21:00 03/01/20 16:28 DC Terazosin HCl (Hytrin) 2 mg DAILY PO 03/01/20 16:30 03/09/20 08:50 Zinc Sulfate (Zinc Sulfate) 220 mg DAILY PO 02/26/20 09:00 03/09/20 08:50 NAOMI CHAPA MD Mar 09, 2020 10:54
--- NOTE | 2020-03-09 10:54 | IPNPDOC ---
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 ALLERGIES: See Below MEDICATIONS: Reviewed, see below. OBJECTIVE: VITAL SIGNS: Please see below. PHYSICAL EXAMINATION: GENERAL: [Cachectic, well developed, sitting up in bed, no acute distress]. HEENT: [Normocephalic, atraumatic]. [No facial droop]. [Poor dentition, missing teeth. PERRL, EOMI]. CARDIOVASCULAR: [S1, S2, irregular rate]. [No lower limb edema or calf tenderness]. LUNGS: [Decreased breath sounds, coarse throughout]. ABDOMEN: [Soft, nontender, nondistended. Normoactive bowel sounds throughout]. MUSCULOSKELETAL: MMT: /5 strength proximally bilateral shoulder abduction, forward flexion and bilateral hip flexion. /5 strength bilateral elbow flexion, knee flexion, /5 bilateral elbow extension and knee extension. /5 cardboard inserter, dorsiflexion, plantar flexion. NEUROLOGICAL: [Alert and oriented times three]. [Answers all question appropriately]. SKIN: . LABORATORY DATA: Reviewed. Please see below. MICROBIOLOGY: Please see below. IMAGING: ASSESSMENT AND PLAN: 1. . 2. . 3. . TIME SPENT: Chart Review, examination and documentation minutes. Allergies Coded Allergies: ciprofloxacin (Verified Adverse Reaction, Intermediate, gives pt c-diff, 02/12/20) Vital Signs Vital Signs Date Time Temp Pulse Resp B/P (MAP) Pulse Ox O2 Delivery O2 Flow Rate FiO2 03/09/20 08:50 127/58 03/09/20 06:00 98.0 68 18 95 Room Air Laboratory Data CBC/BMP Laboratory Tests 03/09/20 06:17 Labs 24H Laboratory Tests 2 03/09/20 06:17: Immature Granulocyte % (Auto) 0.4, Neutrophils (%) (Auto) 63.0, Lymphocytes (%) (Auto) 16.4L, Monocytes (%) (Auto) 9.8H, Eosinophils (%) (Auto) 9.5H, Basophils (%) (Auto) 0.9, Neutrophils # (Auto) 4.4, Lymphocytes # (Auto) 1.1L, Monocytes # (Auto) 0.7, Eosinophils # (Auto) 0.7H, Basophils # (Auto) 0.1, Nucleated Red Blood Cells % (auto) 0.0, Anion Gap 7L, Glomerular Filtration Rate > 60.0, Calcium Level 8.6L Current Medications Current Medications Current Medications Medications (Trade) Dose Ordered Sig/Riya Route PRN Reason Start Time Stop Time Status Last Admin Dose Admin Acetaminophen (Tylenol Tab) 1,000 mg TID PO 02/25/20 16:00 02/28/20 20:30 Albuterol/ Ipratropium (Duoneb (Ipr 0.5mg/Alb 2.5mg)) 3 ml RTID NEB 02/25/20 20:00 03/02/20 13:53 Ascorbic Acid (Vitamin C) 500 mg DAILY PO 02/26/20 09:00 03/09/20 08:50 Aspirin (Ecotrin) 81 mg DAILY PO 02/26/20 09:00 03/09/20 08:50 Atorvastatin Calcium (Lipitor) 40 mg DAILY PO 02/27/20 09:00 03/09/20 08:50 Bisacodyl (Dulcolax Suppository) [address] CONSTIPATION 02/25/20 13:00 Bisacodyl (Dulcolax Tab) 5 mg DAILYPRN PRN PO CONSTIPATION 02/25/20 13:00 03/09/20 08:50 Clopidogrel Bisulfate (PLAVix) 75 mg DAILY PO 02/26/20 09:00 03/09/20 08:50 Docusate Sodium (Colace) 100 mg BID PO 02/25/20 21:00 03/09/20 08:50 Heparin Sodium (Porcine) (Heparin) 5,000 units Q12H SC 02/25/20 21:00 03/09/20 08:49 Lactobacillus Acidophilus (Bacid) 1 ea TID PO 02/25/20 16:00 03/09/20 08:49 Levofloxacin (Levaquin) 500 mg DAILY@06 PO 02/26/20 06:00 03/04/20 13:12 DC 03/04/20 05:29 Lidocaine HCl (Lidocaine 2% Visc Soln) 5 ml TID SSP 02/29/20 16:00 03/07/20 17:40 Losartan Potassium (Cozaar) 50 mg DAILY PO 02/26/20 09:00 03/09/20 08:50 Magnesium Sulfate (Epsom Salt) 1 dose ASDIRECTED TOP 03/02/20 15:00 03/04/20 15:11 Oxycodone HCl (Roxicodone, Oxyir) 5 mg Q4HP PRN PO PAIN 02/25/20 13:00 03/08/20 22:07 Pantoprazole Sodium (Protonix) 40 mg DAILY PO 02/26/20 09:00 03/09/20 08:50 Pravastatin Sodium (Pravachol) 20 mg DAILY PO 02/26/20 09:00 02/26/20 12:03 DC 02/26/20 08:07 Senna (Senokot) 1 tab QHS PO 02/25/20 21:00 02/27/20 20:17 Spironolactone (Aldactone) 25 mg QAM PO 02/26/20 09:00 03/09/20 08:50 Tamsulosin HCl (Flomax) 0.4 mg QHS PO 03/01/20 21:00 03/01/20 16:28 DC Terazosin HCl (Hytrin) 2 mg DAILY PO 03/01/20 16:30 03/09/20 08:50 Zinc Sulfate (Zinc Sulfate) 220 mg DAILY PO 02/26/20 09:00 03/09/20 08:50 NAOMI CHAPA MD Mar 09, 2020 10:54
[2020-03-09] MEDS ORDERED: ACET-683 PO (11:20)
[2020-03-09] MEDS ORDERED: ASPI81TAEC PO (11:20)
[2020-03-09] MEDS ORDERED: CLOP75TA2 PO (11:20)
[2020-03-09] MEDS ORDERED: PANT40TA3 PO (11:20)
[2020-03-09] MEDS ORDERED: ALDA25TA2 PO (11:20)
[2020-03-09] MEDS ORDERED: ATOR40TA75 PO (11:20)
[2020-03-09] MEDS ORDERED: COZA50TA PO (11:20)
[2020-03-09] MEDS ORDERED: TERA1CA PO (11:20)
[2020-03-09] MEDS ORDERED: RISATAB3 PO (11:20)
[2020-03-09] MEDS ORDERED: OXYC-517 PO (11:20)
[2020-03-09 14:00] VITALS: BP 122/58
[2020-03-09] MEDS: oxyCODONE 5MG TAB PO PRN (15:13)
[2020-03-09] MEDS: SENNA 8.6 MG TAB (SENOKOT) PO SCH (20:20)
[2020-03-09 20:30] VITALS: BP 135/59
[2020-03-10 06:00] VITALS: BP 127/60
[2020-03-10] MEDS: IPRATROPIUM 0.5MG/ALBUTEROL 2.5MG INH SOL UD 3ML (DUONEB) NEB SCH ×2 (07:19→14:00)
--- NOTE | 2020-03-10 08:14 | IPNPDOC ---
Text Note Date of Service The patient was seen on 03/10/20. NOTE Vascular Surgery. Dr Carvajal. 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 Afebrile. On exam, the right groin incision is clean dry and Steri-Strips are intact. No drainage is noted. Strong supple pulse over the right PLANISHER. The left groin incision appears to be healing albeit slowly, there is no drainage, the incision was thoroughly cleaned, isabella were removed, Steri- Strips are applied with dry dressing. Strong palpable pulse over left PLANISHER, strong doppler signal over the bypass. The right dorsal foot mottling and ulceration appears stable. There is no deterioration of the foot at this time. The foot is dressed with foam dressing. monophasic doppler signal at Rt DP, I am able to obtain faint signal at the PT. The left AKA stump is clean dry and intact. [place] are removed today, sutures are intact. The wound is thoroughly cleaned. The wound is dressed with dry gauze, Kerlix and paper tape. Tentative plan is for discharge today 03/10/20. She is planning to go home with her daughter. I have discussed with the patient to continue to closely monitor the right foot. I have again discussed with the patient that it is possible that the right foot does appear improved as she has been off tobacco products and nicotine since her admission. I have discussed with her that her foot is certain to deteriorate again if she resumes smoking after discharge. She verbalizes understanding and agreement. Lipitor/ASA/Plavix. Steri-Strips are intact over the groin incisions bilaterally. The patient is advised to continue with dry dressing and allow Steri-Strips to fall off on their own. She is aware to call the office if she has any drainage from the left groin incision. I have removed left stump isabella today, sutures will remain intact until her follow-up appointment which is scheduled 03/17/20 at 11:[address] Carvajal. The patient will continue with dry dressing over the left stump. The patient is advised that she can take a shower at home. She should use the restroom first, remove her bandages, shower, pat dry her incisions and allow her incisions to thoroughly dry then replaced dry dressings. Call the office with any questions, concerns or changes. VS,Fishbone, I+O VS, Fishbone, I+O Vital Signs Date Time Temp Pulse Resp B/P (MAP) Pulse Ox O2 Delivery O2 Flow Rate FiO2 03/10/20 06:00 97.4 72 20 127/60 (82) 95 Room Air I&O- Last 24 Hours up to 6 AM 03/10/20 06:00 Intake Total 720 ml Balance 720 ml Heydi Lee Mar 10, 2020 08:14
[2020-03-10] MEDS: ACETAMINOPHEN 500 MG TAB PO SCH (09:00)
[2020-03-10] MEDS: REMEDY PHYTOPLEX Z-GUARD PASTE 113GM TUBE (FROM STOREROOM PRODUCT) TOP SCH (09:00)
[2020-03-10] MEDS: LIDOCAINE VISCOUS 2% SOLN 15ML UDC SSP SCH (09:00)
[2020-03-10] MEDS: PANTOPRAZOLE 40MG TAB (PROTONIX) PO SCH (09:03)
[2020-03-10] MEDS: DOCUSATE SODIUM 100 MG CAP PO SCH (09:03)
[2020-03-10] MEDS: CLOPIDOGREL 75 MG TAB PO SCH (09:03)
[2020-03-10] MEDS: SPIRONOLACTONE 25 MG TAB PO SCH (09:03)
[2020-03-10] MEDS: LOSARTAN 50MG TABLET PO SCH (09:03)
[2020-03-10 09:04] VITALS: BP 127/60
[2020-03-10] MEDS: ASCORBIC ACID 500 MG TAB PO SCH (09:04)
[2020-03-10] MEDS: TERAZOSIN 1 MG CAP PO SCH (09:04)
[2020-03-10] MEDS: ASPIRIN 81 MG ENTERIC TAB PO SCH (09:04)
[2020-03-10] MEDS: ZINC SULFATE 220 MG CAP PO SCH (09:04)
[2020-03-10] MEDS: HEPARIN SOD (PORCINE) 5000UNITS/ML VIAL (J1644 PER 1000UNITS) SC SCH (09:04)
[2020-03-10] MEDS: ATORVASTATIN 20 MG TAB PO SCH (09:04)
[2020-03-10] MEDS: LACTOBACILLUS ACIDOPHILUS CAP (BACID) PO SCH (09:04)
== END 2020-03-10 14:30 | disposition home health service (06) | DRG 560 ==
LOC: M PM&R 15:20
PROVIDERS: ADMIT Physical Medicine & Rehabilitation; ATTEND Physical Medicine & Rehabilitation
DX: Z47.81 Encounter for orthopedic aftercare following surgical amputation (principal); N02.8 Recurrent and persistent hematuria with other morphologic changes; Z89.612 Acquired absence of left leg above knee; R26.89 Other abnormalities of gait and mobility; R20.0 Anesthesia of skin; D64.9 Anemia, unspecified; I10 Essential (primary) hypertension; E78.5 Hyperlipidemia, unspecified; I25.10 Atherosclerotic heart disease of native coronary artery without angina pectoris; I73.9 Peripheral vascular disease, unspecified; F17.200 Nicotine dependence, unspecified, uncomplicated; Z79.02 Long term (current) use of antithrombotics/antiplatelets; Z79.82 Long term (current) use of aspirin; Z79.891 Long term (current) use of opiate analgesic; Z79.899 Other long term (current) drug therapy; Z88.1 Allergy status to other antibiotic agents